=== PATIENT | male | born 1960 | race Caucasian/White ===

== ENCOUNTER 2024-09-26 07:59 | Emergency (ER) | payer MEDICARE, BC, SELFPAY ==
--- OUTSIDE RECORDS SUMMARY | 2024-09-26 08:02 | XMS_ITS | Encounter Summary ---
Author Organization [facility] Address [address] [place] [address] Care Team Providers Care Dry Paste Supervisor Name Role Phone Unavailable Primary Care Provider Unavailabl e Encounter Details Date Type Department Care Team (Late st Contact Info) Description 09/21/2024 Results Follow-Up RST CVD Kev Buchanan M.B.B.S. [address] [place] [id number] Echo Transesophageal (LEOBARDO) Social History Tobacco Use Types Packs/Day Years Used Date Smoking Tobacco: Never Smokeless Tobacco: Never Alcohol Use Standard Drinks/Week Comments Yes 1 (1 standard drink = 0.6 oz pur e alcohol) 1-2 drinks/week [facility] Utilities Answer Date Recorded In the past 12 months has [employer], gas, oil, or water [employer] threatened to shut off services in your home? No 09/06/2024 PHQ-2 Answer Date Recorded PHQ-2 Score 0 12/30/2022 Exercise Vital Sign Answer Date Recorde d On average, how many days pe r week do you engage in moderate to strenuous exercise (like a brisk walk)? 6 days 09/06/2024 On average, how many minutes do you engage in exercise at this level? 40 min 09/06/2024 Hunger Vital Sign Answer Date Recorded Within the past 12 months, y ou worried that your food would run out before you got the money to buy more. Never true 09/06/19 Within the past 12 months, t he food you bought just didn't last and you didn't have money to get more. Never true 09/06/2024 PRAPARE - Transportation Answer Date Re corded In the past 12 months, has l ack of transportation kept you from medical appointments or from getting medications? No 11/2024 In the past 12 months, has l ack of transportation kept you from meetings, work, or from getting things needed for daily living? No 09/06/2024 Nutrition Answer Date Recorded On average, how many serving s of fruits and vegetables do you eat per day (serving size is equal to 1 cup or approximately the size of a tennis ball)? 3-5 09/06/2024 Dental Answer Date Recorded Dental: Regular Dentist Yes 09/06/19 Employment Answer Date Recorded Employment status Employed and actively working without restrictions 09/06/2024 Housing Stability Answer Date Recorded What is your living situation today? I have a [facility] place to live 09/06/2024 Sex and Gender Information Value Date Recorded Sex Assigned at Male 12/30/2022 7:10 AM CDT Legal Sex Male 9:28 AM ENAMEL DIPPER Gender Identity Male 12/30/2022 7:11 AM CDT Sexual Orientation Straight 12/30/2022 7: 11 AM CDT documented as of this encounter Miscellaneous Notes * Result Encounter Note - Kev Buchanan M.B.B.S. - 09/21/2024 1:36 PM ENAMEL DIPPER Discussed normal findings on transesophageal echocardiogram. Sclerotic aortic valve with small strands consistent with age. Discussed no further testing required from a cardiac standpoint. Mr. Negrete advised to reach back if has continued symptoms of dizziness at which point neurology/ ENT referral can be considered. EL DIPPER documented in this encounter Plan of Treatment Not on file documented as of this encounter Visit Diagnoses Not on filedocumented in this encounter
--- OUTSIDE RECORDS SUMMARY | 2024-09-26 08:02 | XMS_ITS | Encounter Summary ---
Author Organization [facility] Address [address] [place] [address] Care Team Providers Care Senior Radiation Protection Technician Name Role Phone Unavailable Primary Care Provider Unavailabl e Reason for Referral * Cardiovascular-Diagnostic (Routine) - Closed Specialty Diagnoses / Procedures Referred By Contac t Referred To Contact Diagnoses Acquired Aortic Valve Disorder Procedures Echo Transesophageal (LEOBARDO) Kev Buchanan M.B.B.S. [address] [place] [address] Phone: tel: fax: [facility] Referral ID Status Reason Start Date Expiration Date Visits Re quested Visits Authorized [id number] Closed 09/12/2024 12/13/2025 1 1 NETWORK ARCHITECT Reason for Visit * Cardiovascular-Diagnostic (Routine) - Closed Specialty Diagnoses / Procedures Referred By Contac t Referred To Contact Diagnoses Acquired Aortic Valve Disorder Procedures Echo Transesophageal (LEOBARDO) Kev Buchanan M.B.B.S. [address] [place] [address] Phone: tel: fax: [facility] Referral ID Status Reason Start Date Expiration Date Visits Re quested Visits Authorized [id number] Closed 09/12/2024 12/13/2025 1 1 Encounter Details Date Type Department Care Team (Latest Contact Info) Description 09/21/2024 9:58 AM IT NETWORK ARCHITECT - 09/21/2024 11:59 PM IT NETWORK ARCHITECT Hospital Encounter Department of Cardiovascular Diseases in [place], [place] [address] [place] [address] Kev Buchanan M.B.B.S. [address] [place] [address] Acquired Aortic Valve Disorder Discharge Disposition: Home or Self Care Social History Tobacco Use Types Packs/Day Years Used Date Smoking Tobacco: Never Smokeless Tobacco: Never Alcohol Use Standard Drinks/Week Comments Yes 1 (1 standard drink = 0.6 oz pur e alcohol) 1-2 drinks/week [facility] Utilities Answer Date Recorded In the past 12 months has th e electric, gas, oil, or water company threatened to shut off services in your [...] money to buy more. Never true 09/06/19 25 Within the past 12 months, t he [...] your living situation today? I have a [employer] place to live 09/06/2024 Sex and Gender Information Value Date Recorded Sex Assigned at Male 12/30/2022 7:10 AM CDT Legal Sex Male 9:28 AM IT NETWORK ARCHITECT Gender Identity Male 12/30/2022 7:11 AM CDT Sexual Orientation Straight 12/30/2022 7: 11 AM CDT documented as of this encounter Last Filed Vital Signs Vital Sign Reading Time Taken Comments Blood Pressure 113/79 09/21/2024 11:42 AM IT NETWORK ARCHITECT Pulse 61 09/21/2024 11:39 AM IT NETWORK ARCHITECT Temperature - - Respiratory Rate 17 09/21/2024 11:39 AM IT NETWORK ARCHITECT Oxygen Saturation 96% 09/21/2024 11:39 AM IT NETWORK ARCHITECT Inhaled Oxygen Concentration - - Weight - - Height - - Body Mass Index - - documented in this encounter Medications at Time of Discharge aspirin [address] tablet Take 81 mg by mouth daily. 05/17/2009 atorvastatin (LIPITOR) 40 mg tablet Take 40 mg by mouth daily. 11/28/2017 DME CPAPIndications: Obstructive Sleep Apnea Adult DME Order 1 Device 08/08/2020 ezetimibe (Zetia) 10 mg tablet Take 1 tablet (10 mg total) by mouth daily. 30 tablet 11 09/11/2024 flaxseed oiL 1,000 mg capsule Take 1 capsule by mouth daily. 01/12/2020 glucosamine-afia droitin (GLUCOSAMINE-CHO NDROITIN) 500-400 mg per capsule Take 2 capsules by mouth daily. 09/09/2015 hydroCHLOROthiaz brenden (HYDRODIURIL) 12.5 mg tablet Take 6.25 mg by mouth daily. 11/22/2017 lactobacillus comb no.10 (Probiotic) 20 billion cell capsule Take 1 capsule by mouth daily. 01/30/2019 lisinopril (PRINIVIL,ZESTRI L) 5 mg tablet Take 5 mg by mouth daily. 11/22/2017 multivitamin tablet Take by mouth daily. 05/17/2009 omega 0-yxa-avr-fish oil (FISH OIL) 1,000 mg (120 mg-180 mg) capsule Take 1,000 mg by mouth daily. 05/17/2009 omeprazole (PriLOSEC) 20 mg capsule Take 20 mg by mouth every morning before breakfast. 11/22/2017 rosuvastatin (Crestor) 40 mg tablet Take 1 tablet by mouth at bedtime. 09/07/2024 saw palmetto fruit 450 mg capsule Take by mouth daily. 10/21/2012 triamcinolone (KENALOG) 0.1 % cream Apply 1 Application topically as needed. 12/23/2021 documented as of this encounter Plan of Treatment Not on file documented as of this encounter Procedures Procedure Name Priority Date/Time Associated Diagnosis Comments (LEOBARDO) 2D WITH COLOR, LIMITED DOPPLER AND CONTRAST Routine 09/21/2024 11:32 AM IT NETWORK ARCHITECT Acquired Aortic Valve Disorder documented in this encounter Results * (LEOBARDO) 2D WITH COLOR, LIMITED DOPPLER AND CONTRAST (09/21/2024 11:32 AM IT NETWORK ARCHITECT) Ejection Fraction 65 [facility] Mallampati As documented in the RN pre-procedure assessment [facility] ASA Class II [facility] Echo H and P 09/21/2024 11:01 [facility] Anatomical Region Laterality Modality Echocardiography 09/21/2024 10:0 5 AM IT NETWORK ARCHITECT Impressions 09/21/2024 1:09 PM IT NETWORK ARCHITECT PRE-SEDATION ASSESSMENT & CONSENT (performed immediately prior to the start of the procedure at 09/21/2024 11:01): The goals, risks and alternatives to moderate sedation and the transesophageal echo were explained to the patient, questions were answered and consent was given to proceed. The physician proceduralist independently interviewed the patient in addition to a pertinent review of the patient's history, medication list, allergies, and review of systems, and the findings as documented in the medical record and the journalism professor. The physician independently performed a pertinent examination including a heart, airway, and lung assessment prior to the start of the procedure. The patient history and physical were deemed satisfactory to proceed with the planned level of sedation. Mallampati Assessment: As documented in the RN pre-procedure assessment. Sedation Plan: Transesophageal echo - moderate sedation. ASA physical status score: Class II. The patient's identity and all needed equipment were confirmed and a final confirmatory pause was performed by the team immediately prior to start. PROCEDURAL ECHO FINDINGS: Transesophageal echocardiogram performed at the request of the primary manager field services. Transesophageal echocardiogram performed by the physician manager editorial(s), as listed in this report. Adult probe inserted without difficulty. LEFT VENTRICLE:Normal left ventricular chamber size. Estimated left ventricular ejection fraction 65%. No regional wall motion abnormalities. RIGHT VENTRICLE:Normal right ventricular chamber size. Normal right ventricular systolic function. ATRIA:Normal left atrial size. Normal left atrial appendage. Left atrial appendage emptying velocity 61.8 cm/sec. No left atrial appendage thrombus. Normal right atrial size. CARDIAC VALVES:Trileaflet aortic valve. Sclerotic aortic valve. Aortic valve strands. Aortic valve changes consistent with age. No aortic valve regurgitation. Normal mitral valve. Trivial mitral valve regurgitation. Normal pulmonary valve. Trivial pulmonary valve regurgitation. Normal tricuspid valve. Trivial tricuspid valve regurgitation. OTHER ECHO FINDINGS:Normal ascending aorta diameter. Normal aortic arch. Mild immobile (intimal thickening of 2-3 mm) atherosclerosis of the descending thoracic aorta. Normally connected pulmonary veins. Pulmonary artery bifurcation is normal. Normal superior vena cava. Lipomatous atrial septum. Agitated saline injection(s) performed during sedation. Prominent Eustachian valve directing bubbles to right atrium, causing suboptimal opacification of interatrial septum. No [id number] shunt at atrial level at rest or with Valsalva release with repeated agitated saline injections in today's study. No intracardiac mass or thrombus identified. No pericardial effusion. PROCEDURE NOTES:Procedure performed with appropriate level of sedation. A trained independent observer assisted with monitoring the patient's level of consciousness and physiologic status throughout the procedure, see nursing documentation. The patient tolerated the sedation and procedure well and was released awake, alert, and in good condition. Transesophageal echocardiogram completed without complications. Transgastric images acquired. See Sedation Narrator or other pertinent record in [facility] for additional procedure and sedation information. Physician signed for procedural medications and the patient was discharged when discharge criteria were met. For the complete report, see the Order-Level Documents. Narrative 09/21/2024 1:09 PM IT NETWORK ARCHITECT For the complete report, see the Order-Level Documents. Hemodynamics Heart Rate: 66 BPM Blood Pressure: 147 / 102 mmHg ECG: Normal sinus rhythm Final Impressions 1. Normal left ventricular chamber size , estimated left ventricular ejection fraction 65%. 2. Normal right ventricular chamber size with normal right ventricular systolic function. 3. Sclerotic aortic valve with small strands consistent with age. 4. No valvular vegetations. 5. No intracardiac mass or thrombus identified. 6. No pericardial effusion. Procedure Note Roland Wei M.D. - 09/21/2024 For the complete report, see the Order-Level Documents. Hemodynamics Heart Rate: 66 BPM Blood Pressure: 147 / 102 mmHg ECG: Normal sinus rhythm Final Impressions 1. Normal left ventricular chamber size , estimated left ventricularejection fraction 65%. 2. Normal right ventricular chamber size with normal right ventricularsystolic function. 3. Sclerotic aortic valve with small strands consistent with age. 4. No valvular vegetations. 5. No intracardiac mass or thrombus identified. 6. No pericardial effusion. Findings PRE-SEDATION ASSESSMENT & CONSENT (performed immediately prior to thestart of the procedure at 09/21/2024 11:01): The goals, risks andalternatives to moderate sedation and the transesophageal echo wereexplained to the patient, questions were answered and consent was given toproceed. The physician proceduralist independently interviewed the patientin addition to a pertinent review of the patient's history, medicationlist, allergies, and review of systems, and the findings as documented inthe medical record and the journalism professor. The physician independentlyperformed a pertinent examination including a heart, airway, and lungassessment prior to the start of the procedure. The patient history andphysical were deemed satisfactory to proceed with the planned level ofsedation. Mallampati Assessment: As documented in the RN pre-procedureassessment. Sedation Plan: Transesophageal echo - moderate sedation. ASAphysical status score: Class II. The patient's identity and all neededequipment were confirmed and a final confirmatory pause was performed bythe team immediately prior to start. PROCEDURAL ECHO FINDINGS:Transesophageal echocardiogram performed at the request of the primaryservice program evaluation consultant. Transesophageal echocardiogram performed by therevere memorial hospitalsician manager editorial(s), as listed in this report. Adult probeinserted without difficulty. LEFT VENTRICLE:Normal left ventricular chamber size. Estimated leftventricular ejection fraction 65%. No regional wall motionabnormalities. RIGHT VENTRICLE:Normal right ventricular chamber size. Normal rightventricular systolic function. ATRIA:Normal left atrial size. Normal left atrial appendage. Left atrialappendage emptying velocity 61.8 cm/sec. No left atrial appendagethrombus. Normal right atrial size. CARDIAC VALVES:Trileaflet aortic valve. Sclerotic aortic valve. Aorticvalve strands. Aortic valve changes consistent with age. No aortic valveregurgitation. Normal mitral valve. Trivial mitral valve regurgitation.Normal pulmonary valve. Trivial pulmonary valve regurgitation. Normaltricuspid valve. Trivial tricuspid valve regurgitation. OTHER ECHO FINDINGS:Normal ascending aorta diameter. Normal aortic arch.Mild immobile (intimal thickening of 2-3 mm) atherosclerosis of thedescending thoracic aorta. Normally connected pulmonary veins. Pulmonaryartery bifurcation is normal. Normal superior vena cava. Lipomatous atrialseptum. Agitated saline injection(s) performed during sedation. ProminentEustachian valve directing bubbles to right atrium, causing suboptimalopacification of interatrial septum. No [id number] shunt at atriallevel at rest or with Valsalva release with repeated agitated salineinjections in today's study. No intracardiac mass or thrombus identified.No pericardial effusion. PROCEDURE NOTES:Procedure performed with appropriate level of sedation. Atrained independent observer assisted with monitoring the patient's levelof consciousness and physiologic status throughout the procedure, seenursing documentation. The patient tolerated the sedation and procedurewell and was released awake, alert, and in good condition. Transesophagealechocardiogram completed without complications. Transgastric imagesacquired. See Sedation Narrator or other pertinent record in Epic foradditional procedure and sedation information. Physician signed forprocedural medications and the patient was discharged when dischargecriteria were met. For the complete report, see the Order-Level Documents. Kev Rice CV ECHO PROCEDURES Final R esult documented in this encounter Visit Diagnoses Diagnosis Acquired Aortic Valve Disorder documented in this encounter Administered Medications Inactive Administered Medications - up to 3 most recent administrations Medication Order MAR Action Action Date Dose Rate Site fentaNYL injection (Sublimaze) As needed, Starting on Mago 09/21/24 at 1102, Intraprocedure (CV) Given 09/21/2024 11:02 AM IT NETWORK ARCHITECT 50 mcg lidocaine 5 % ointment 1 Application (Xylocaine) 1 Application, mouth/throat, Once in imaging, mild pain or score 1-3 of 10, See protocol, Starting on Mago 09/21/24 at 1010, For 1 dose, Intraprocedure - Diagnostic, Apply 1 inch on tongue blade[address] Place ointment side down in back of mouth, as far back as possible. Instruct patient to swallow any dissolved ointment. After 2-3 minutes, check gag reflex. May repeat once if gag reflex remains. Administer first dose within 10 minutes of expected physician arrival to procedure. MAX of 20 g of ointment/day Given 09/21/2024 10:44 AM IT NETWORK ARCHITECT 1 Application midazolam (PF) injection (Versed) As needed, Starting on Mago 09/21/24 at 1102, Intraprocedure (CV) Given 09/21/2024 11:02 AM IT NETWORK ARCHITECT 2 mg NaCl 0.9% bacteriostatic 0.9 % injection 30 mL 30 mL, intravenous, Once in imaging, for agitated saline (bubble) studies, Starting on Mago 09/21/24 at 1010, For 1 dose, Intraprocedure - Diagnostic, See Katie. Given 09/21/2024 11:25 AM IT NETWORK ARCHITECT 30 mL sodium chloride 0.9 % injection 10 mL 10 mL, intravenous, Once in imaging, line care, Starting on Mago 09/21/24 at 1010, For 1 dose, Prior to and following infusion and between multiple consecutive infusions: sodium chloride 0.9 % injection Given 09/21/2024 10:44 AM IT NETWORK ARCHITECT 10 mL documented in this encounter
--- OUTSIDE RECORDS SUMMARY | 2024-09-26 08:02 | XMS_ITS | Encounter Summary ---
Author Organization [facility] Address [address] [place] [address] Care Team Providers Care Carpenter Mine Name Role Phone Unavailable Primary Care Provider Unavailabl e Reason for Referral * Cardiovascular-Diagnostic (Routine) - Closed Specialty Diagnoses / Procedures Referred By Contac t Referred To Contact Diagnoses Dizziness Procedures Echo Stress Kev Buchanan M.B.B.S. [address] [place] [address] Phone: tel: fax: [facility] Referral ID Status Reason Start Date Expiration Date Visits Re quested Visits Authorized [id number] Closed 09/11/2024 12/12/2025 1 1 T Reason for Visit * Cardiovascular-Diagnostic (Routine) - Closed Specialty Diagnoses / Procedures Referred By Contac t Referred To Contact Diagnoses Dizziness Procedures Echo Stress Kev Buchanan M.B.B.S. [address] [place] [address] Phone: tel: fax: [facility] Referral ID Status Reason Start Date Expiration Date Visits Re quested Visits Authorized [id number] Closed 09/11/2024 12/12/2025 1 1 Encounter Details Date Type Department Care Team (Latest Contact Info) Description 09/12/2024 7:13 AM SCOUT - 09/12/2024 11:59 PM SCOUT Hospital Encounter Department of Cardiovascular Diseases in [place], [place] [address] [place] [address] Kev Buchanan M.B.BLuis ArmandoS. [address] [place] [address] Dizziness Discharge Disposition: Home or Self Care Social History Tobacco Use Types Packs/Day Years Used Date Smoking Tobacco: Never Smokeless Tobacco: Never Alcohol Use Standard Drinks/Week Comments Yes 1 (1 standard drink = 0.6 oz pur e alcohol) 1-2 drinks/week [facility] Utilities Answer Date Recorded In the past [...] Answer Date Recorded Dental: Regular Dentist Yes 02/05/20 25 Employment Answer Date Recorded Employment status Employed and actively working without restrictions 09/06/2024 Housing Stability Answer Date Recorded What is your living situation today? I have a [facility] place to live 09/06/2024 Sex and Gender Information Value Date Recorded Sex Assigned at Male 12/30/2022 7:10 AM CDT Legal Sex Male 9:28 AM SCOUT Gender Identity Male 12/30/2022 7:11 AM CDT Sexual Orientation Straight 12/30/2022 7: 11 AM CDT documented as of this encounter Medications at Time of Discharge [...] tablet Take by mouth daily. 05/17/2009 omega 1-thm-heu-fish oil (FISH OIL) 1,000 mg (120 mg-180 [...] Procedure Name Priority Date/Time Associated Diagnosis Comments ECHO STRESS 2D WITH COLOR, LIMITED DOPPLER AND CONTRAST Routine 09/12/2024 8:44 AM SCOUT Dizziness documented in this encounter Results * ECHO STRESS 2D WITH COLOR, LIMITED DOPPLER AND CONTRAST (09/12/2024 8:44 AM SCOUT) Ejection Fraction 62 MC CV EIMS LV End-Diastolic Volume 99 MC CV EIMS LV End-Systolic Volume 38 MC CV EIMS MV E Velocity 0.8 MC CV EIMS MV A Velocity 0.6 MC CV EIMS MV E/A 1.33 MC CV EIMS MV e' Velocity Medial 0.08 MC CV EIMS MV E/e' Medial 10 MC CV EIMS TR Vmax 2.37 MC CV EIMS RA Pressure 5 MC CV EIMS RV Systolic Pressure 27 MC CV EIMS WMSI At Rest 1 MC CV EIMS WMSI At Peak Stress 1 MC CV EIMS Anatomical Region Laterality Modality Echocardiography 09/12/2024 7:30 AM SCOUT Impressions 09/12/2024 9:57 AM SCOUT consistent with normal left ventricular filling pressure at rest and with exercise. 7. Estimated right ventricular systolic pressure with stress was 52 mmHg, assuming RA pressure of 5 mmHg (upper limit of normal 54 mmHg). 8. Findings consistent with normal lung aeration at rest and with exercise. 9. The stress ECG was negative for ischemia. 10. REST IMPRESSIONS: 11. Possible aortic valve mass. An immobile echodensity is seen within the non-coronary sinus of Valsalva, closely associated with the non-coronary cusp (see clip 1, 48-50) and measures approximately 0.4 x 0.4 mm. 12. There was a similar echodensity seen on the recent TTE which appeared more consistent with focal calcification/sclerosis, though it appears larger on today's study. 13. Note that today's study was very limited in scope, with limited views of the aortic valve. As such, there is a possibility that the abnormality and changes are due to differences in imaging factors rather than true change. 14. Nonetheless, a transesophageal echocardiogram could be obtained out of an abundance of caution to evaluate for a possible aortic valve mass. Findings STRESS TEST:The patient exercised for 7:11 min:sec on the Elder protocol. The patient achieved a workload of 8.2 METS and 84% FAC. A peak heart rate of 151 BPM was achieved (98% age-predicted maximal HR). Blood pressure at rest 130 mmHg/76 mmHg. Blood pressure with exercise 192 mmHg/70 mmHg. Normal blood pressure response to exercise. The test was terminated due to fatigue. The baseline ECG demonstrated sinus rhythm. With stress, the ECG demonstrated <1mm beat to beat variability S-T depression. S-T depression in infero-lateral lead(s). The stress ECG was negative for ischemia. Please see Nursing Notes for additional information. REST IMAGES: LEFT VENTRICLE:Normal left ventricular chamber size. Calculated 2-D biplane volumetric left ventricular ejection fraction of 62% with the use of ultrasound enhancing agent. No regional wall motion abnormalities. Normal left ventricular diastolic function. RIGHT VENTRICLE:Normal right ventricular chamber size. Normal right ventricular systolic function. Estimated right ventricular systolic pressure 27 mmHg (right atrial pressure of 5 mmHg). CARDIAC VALVES:Sclerotic aortic valve. Possible aortic valve mass. Mildly thickened mitral valve. Trivial mitral valve regurgitation. Normal tricuspid valve. Trivial tricuspid valve regurgitation. OTHER ECHO FINDINGS:Normal inferior vena cava size with normal inspiratory collapse (>50%). No intracardiac mass or thrombus identified. No pericardial effusion. LUNG FINDINGS:Lung ultrasound performed. Normal aeration in both lungs. Attempts were made to optimize the echocardiographic images and two or more left ventricular segments were not visualized adequately to evaluate cardiac structure. The patient's current allergies and medications have been screened. Intravenous Definity ultrasound enhancement agent(s) administered to enhance endocardial border definition. Imaging enhancement agent administered per Echocardiography Contrast Administration Protocol Reference Document [id number] Rev 11/13/2021. Patient met an inclusion criterion and did not have contraindications in screening sections. For the complete report, see the Order-Level Documents. Narrative 09/12/2024 9:57 AM SCOUT For the complete report, see the Order-Level Documents. Hemodynamics Heart Rate: 64 BPM Blood Pressure: 130 / 76 mmHg ECG: Sinus rhythm, Normal QRS Final Impressions 1. STRESS IMPRESSIONS: 2. Exercise echocardiogram negative for myocardial ischemia. 3. The patient's exercise capacity was below average, achieved a workload of 8.2 METS and 84% FAC . A peak heart rate of 151 BPM was achieved (98% age-predicted maximal HR). 4. The test was terminated due to fatigue. 5. Ejection fraction response from 62% at rest to 75% at peak stress, left ventricular end-systolic volume decreased with stress. 6. Procedure Note Mariam Arteaga M.D. - 09/12/2024 For the complete report, see the Order-Level Documents. Hemodynamics Heart Rate: 64 BPM Blood Pressure: 130 / 76 mmHg ECG: Sinus rhythm, Normal QRS Final Impressions 1. STRESS IMPRESSIONS: 2. Exercise echocardiogram negative for myocardial ischemia. 3. The patient's exercise capacity was below average, achieved a workloadof 8.2 METS and 84% FAC . A peak heart rate of 151 BPM was achieved (98%age-predicted maximal HR). 4. The test was terminated due to fatigue. 5. Ejection fraction response from 62% at rest to 75% at peak stress, leftventricular end-systolic volume decreased with stress. 6. Findings consistent with normal left ventricular filling pressure atrest and with exercise. 7. Estimated right ventricular systolic pressure with stress was 52 mmHg,assuming RA pressure of 5 mmHg (upper limit of normal 54 mmHg). 8. Findings consistent with normal lung aeration at rest and withexercise. 9. The stress ECG was negative for ischemia. 10. REST IMPRESSIONS: 11. Possible aortic valve mass. An immobile echodensity is seen within thenon-coronary sinus of Valsalva, closely associated with the non-coronarycusp (see clip 1, 48-50) and measures approximately 0.4 x 0.4 mm. 12. There was a similar echodensity seen on the recent TTE which appearedmore consistent with focal calcification/sclerosis, though it appearslarger on today's study. 13. Note that today's study was very limited in scope, with limited viewsof the aortic valve. As such, there is a possibility that the abnormalityand changes are due to differences in imaging factors rather than truechange. 14. Nonetheless, a transesophageal echocardiogram could be obtained out ofan abundance of caution to evaluate for a possible aortic valve mass. Findings STRESS TEST:The patient exercised for 7:11 min:sec on the Elder protocol.The patient achieved a workload of 8.2 METS and 84% FAC. A peak heart rateof 151 BPM was achieved (98% age-predicted maximal HR). Blood pressure atrest 130 mmHg/76 mmHg. Blood pressure with exercise 192 mmHg/70 mmHg.Normal blood pressure response to exercise. The test was terminated due tofatigue. The baseline ECG demonstrated sinus rhythm. With stress, the ECGdemonstrated <1mm beat to beat variability S-T depression. S-T depressionin infero-lateral lead(s). The stress ECG was negative for ischemia.Please see Nursing Notes for additional information. REST IMAGES: LEFT VENTRICLE:Normal left ventricular chamber size. Calculated 2-Dbiplane volumetric left ventricular ejection fraction of 62% with the useof ultrasound enhancing agent. No regional wall motion abnormalities.Normal left ventricular diastolic function. RIGHT VENTRICLE:Normal right ventricular chamber size. Normal rightventricular systolic function. Estimated right ventricular systolicpressure 27 mmHg (right atrial pressure of 5 mmHg). CARDIAC VALVES:Sclerotic aortic valve. Possible aortic valve mass. Mildlythickened mitral valve. Trivial mitral valve regurgitation. Normaltricuspid valve. Trivial tricuspid valve regurgitation. OTHER ECHO FINDINGS:Normal inferior vena cava size with normal inspiratorycollapse (>50%). No intracardiac mass or thrombus identified. Nopericardial effusion. LUNG FINDINGS:Lung ultrasound performed. Normal aeration in both lungs.Attempts were made to optimize the echocardiographic images and two ormore left ventricular segments were not visualized adequately to evaluatecardiac structure. The patient's current allergies and medications havebeen screened. Intravenous Definity ultrasound enhancement agent(s)administered to enhance endocardial border definition. Imaging enhancementagent administered per Echocardiography Contrast Administration ProtocolReference Document [id number] Rev 11/13/2021. Patient met an inclusioncriterion and did not have contraindications in screening sections. For the complete report, see the Order-Level Documents. us Kev Rice CV ECHO PROCEDURES Final R esult documented in this encounter Visit Diagnoses Diagnosis Dizziness documented in this encounter Administered Medications Inactive Administered Medications - up to 3 most recent administrations Medication Order MAR Action Action Date Dose Rate Site perflutren lipid microspheres injection (Definity) intravenous, Once in imaging, contrast, Starting on Wed09/12/24 at 0843, For 1 dose, Intraprocedure - Diagnostic, See protocol. Given 09/12/2024 8:43 AM SCOUT 1 mL sodium chloride 0.9 % injection 10 mL 10 mL, intravenous, As needed, line care, Starting on Wed09/12/24 at 0843, Intraprocedure - Diagnostic, Prior to and following infusion and between multiple consecutive infusions: sodium chloride 0.9 % injection Given 09/12/2024 8:43 AM SCOUT 10 mL documented in this encounter
--- OUTSIDE RECORDS SUMMARY | 2024-09-26 08:02 | XMS_ITS | Encounter Summary ---
Author Organization [facility] Address [address] [place] [address] Care Team Providers Care Media Relations Coordinator Name Role Phone Unavailable Primary Care Provider Unavailabl e Reason for Referral * Cardiovascular-Diagnostic (Routine) - Closed Specialty Diagnoses / Procedures Referred By Contac t Referred To Contact Diagnoses Acquired Aortic Valve Disorder Procedures Echo Transesophageal (LEOBARDO) Kev Buchanan M.B.B.S. [address] [place] [address] Phone: tel: fax: [facility] Referral ID Status Reason Start Date Expiration Date Visits Re quested Visits Authorized [id number] Closed 09/12/2024 12/13/2025 1 1 MAL SPRAY OPERATOR Encounter Details Date Type Department Care Team (Latest Contact Info) Description 09/12/2024 Results Follow-Up RST CVD Kev Buchanan M.B.B.S. [address] [place] [phone] Echo Stress Social History Tobacco Use Types Packs/Day Years Used Date Smoking Tobacco: Never Smokeless Tobacco: Never Alcohol Use Standard Drinks/Week Comments Yes 1 (1 standard drink = 0.6 oz pur e alcohol) 1-2 drinks/week [facility] Utilities Answer Date Recorded In the past [...] your living situation today? I have a [facility] place to live 09/06/2024 Sex and Gender Information Value Date Recorded Sex Assigned at Male 12/30/2022 7:10 AM CDT Legal Sex Male 9:28 AM THERMAL SPRAY OPERATOR Gender Identity Male 12/30/2022 7:11 AM CDT Sexual Orientation Straight 12/30/2022 7: 11 AM CDT documented as of this encounter Miscellaneous Notes * Result Encounter Note - Kev Buchanan M.B.BLuis ArmandoS. - 09/12/2024 1:02 PM THERMAL SPRAY OPERATOR Discuss stress echocardiogram findings with And Mrs. Petty. Discussed that stress echocardiogram was negative for myocardial ischemia, he had an adequate blood pressure response with stress. Considering these findings discussed unlikely the dizziness being cardiac in origin. Discussed findingsof aortic valve mass noted in the non coronary cusps in the sinus of Valsalva, and need for transesophageal echocardiogram to better delineate the same. And Mrs. Petty were in agreement with getting a transesophageal echo cardiogram and the same was ordered. Discussed his new diagnosis of type2 diabetes mellitus, and advised reaching out to his primary care physician for initiation of treatment. Discussed potential initiation of SGLT2 inhibitors if his insurance permits versus initiation of metformin. MAL SPRAY OPERATOR documented in this encounter Plan of Treatment Not on file documented as of this encounter Results * (LEOBARDO) 2D WITH COLOR, LIMITED DOPPLER AND CONTRAST (09/21/2024 11:32 AM THERMAL SPRAY OPERATOR) [facility] Signature Ejection Fraction 65 [facility] Mallampati As documented in the RN pre-procedure assessment [facility] ASA Class II [facility] Echo H and P 09/21/2024 11:01 [facility] Anatomical Region Laterality Modality Echocardiography 09/21/2024 10:0 5 AM THERMAL SPRAY OPERATOR Impressions 09/21/2024 1:09 PM THERMAL SPRAY OPERATOR PRE-SEDATION ASSESSMENT & CONSENT (performed immediately prior [...] documented in the medical record and the assessment specialist. The physician independently performed a pertinent examination [...] performed at the request of the primary director patient financial services. Transesophageal echocardiogram performed by the physician prepress specialist(s), as listed in this report. Adult probe [...] causing suboptimal opacification of interatrial septum. No [id number] shunt at atrial level at rest or [...] Sedation Narrator or other pertinent record in [facility] for additional procedure and sedation information. Physician signed for procedural medications and the patient was discharged when discharge criteria were met. For the complete report, see the Order-Level Documents. Narrative 09/21/2024 1:09 PM THERMAL SPRAY OPERATOR For the complete report, see the Order-Level [...] as documented inthe medical record and the assessment specialist. The physician independentlyperformed a pertinent examination including [...] performed at the request of the primaryservice risk and insurance consultant. [facility]esophageal echocardi[facility] prepress specialist(s), as listed in this report. Adult probeinserted [...] atrium, causing suboptimalopacification of interatrial septum. No [id number] shunt at atriallevel at rest or with [...] Sedation Narrator or other pertinent record in [facility] foradditional procedure and sedation information. Physician signed forprocedural medications and the patient was discharged when dischargecriteria were met. For the complete report, see the Order-Level Documents. us Kev Rice CV ECHO PROCEDURES Final R esult documented in this encounter Visit Diagnoses Diagnosis Acquired Aortic Valve Disorder- Primary Acquired Aortic Valve Disorder documented in this encounter
--- OUTSIDE RECORDS SUMMARY | 2024-09-26 08:02 | XMS_ITS | Encounter Summary ---
Author Organization [facility] Address [address] [place] [address] Care Team Providers Care Lead Project Engineer Name Role Phone Unavailable Primary Care Provider Unavailabl e Reason for Referral * Outpatient (Routine) - Authorized Specialty Diagnoses / Procedures Referred By Contac t Referred To Contact Cardiovascular Disease Kev Buchanan M.B.B.S. 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 Reason for Visit * Appointment Request (Routine) - Closed Specialty Diagnoses / Procedures Referred By Hyacinth t Referred To Contact Cardiovascular Disease Diagnoses Lightheadedness Fatigue Referral ID Status Reason Start Date Expiration Date Visits Re quested Visits Authorized [id number] Closed 08/21/2024 11/21/2025 1 1 Encounter Details Date Type Department Care Team (Latest Contact Info) Description 09/11/2024 1:15 PM 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 [address] [place] [address] Dizziness (Primary Dx); Diabetes Mellitus Type 2 (HCC); Hypertension Essential Primary; Hyperlipidemia On Treatment; Beat Premature Ventricular; Atrial Premature Depolarization; Family History Cardiovascular Disease Social History Tobacco Use Types Packs/Day Years Used Date Smoking Tobacco: Never Smokeless Tobacco: Never Tobacco Cessation:Counseling Given: Not Answered Alcohol Use Standard Drinks/Week Comments Yes 1 (1 standard drink = 0.6 oz pur e alcohol) 1-2 drinks/week [facility] Utilities Answer Date Recorded In the past 12 months has th e [email or web address], gas, oil, or water [email or web address] threatened to shut off services in your [...] Date Recorded Dental: Regular Dentist Yes 09/06/19 25 Employment Answer Date Recorded Employment status Employed and actively working without restrictions 09/06/2024 Housing Stability Answer Date Recorded What is your living situation today? 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 Jones SUBJECTIVE REASON FOR VISIT: Symptoms of dizziness at exertion. HISTORY OF PRESENTING ILLNESS: This is a 64-year-old very pleasant male with past medical history listed below presents to the cardiology clinic with complaints of symptoms of dizziness at exertion. He is accompanied today by his . Per the history provided by Mr. Yap he did develop symptoms of dizziness with exertion starting around July 21, 2024. Per the history provided by him he had bursitis and was given antibiotics for a duration of 5 days with minimal improvement in symptoms. Considering this he was given additional 5 days of antibiotics and he developed symptoms of dizziness with exertion following the 1st dose of additional 5 days of antibiotics. Denies symptoms of worsening tinnitus/ear pain. Of note he has a history of Meniere's disease with tinnitus at baseline and vertigo, however feels the dizziness at exertion noted above is different from the dizziness usually experience with Meniere's disease.Denies history of presyncopal or syncopal events associated with his dizziness. Denies complaints of chest pain at rest or with exertion, happening with his above- noted dizziness, denies complaints of shortness of breath at rest or with exertion, denies complaints of palpitation or lower extremity swelling. Per the history provided by Mr. Yap he denies monitoring his blood pressure at home. The following portions of the patient's history were reviewed and updated as appropriate: allergies, current medications, family history, medical history, social history, surgical history and problemlist. CARDIOVASCULAR RISK FACTORS: Diabetes: None diagnosed. Last documented HbA1c of 7.4 High Blood Pressure: Has a history of hypertension. Blood pressure during the encounter today was 135/86. Does not monitor his blood pressure at home. Hyperlipidemia: Yes. On atorvastatin 40 mg tablet once daily and omega 8-qul-tob-fish oil (FISH OIL) 1,000 mg (120 mg-180 mg) capsule daily. Last lipid panel done 08/30/2024 at a [facility] facility reported a total cholesterol of 142, LDL cholesterol of 62, HDL cholesterol of 40 and triglycerides of 219. Last lipid panel done 09/07/2024 at a outside facility reported a total cholesterol of 142, LDL cholesterol of 70, HDL cholesterol of 45 and triglycerides of 199. BERT: Has a diagnosis history of obstructive sleep apnea. Has been very compliant with his CPAP machine, which per the history provided by Mr. Yap was titrated recently. Tobacco Use: Denies a history of smoking. Obesity: Class 1 obesity with a documented BMI 34.63. 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 Food pattern: Not addressed during this encounter. Stress: Mr. Yap does note increased stress related to work of recently. Sleep: Not addressed during this encounter. CARDIAC MEDICATIONS: Lisinopril, hydrochlorothiazide, atorvastatin, fish oil and aspirin. PAST MEDICAL HISTORY: Last documented HbA1c 09/07/2024 of 7.4. Hypertension on lisinopril 5 mg tablet once daily and hydrochlorothiazide 6.25 mg tablet once daily. Hyperlipidemia on atorvastatin 40 mg tablet once daily and omega 5-chh-kxt-fish oil (FISH OIL) 1,000 mg (120 mg-180 mg) capsule daily. Last lipid panel done 08/30/2024 done at a [facility] facility reported a total cholesterol of 142, LDL cholesterol of 62, HDL cholesterol of 40 and triglycerides of 219.Last lipid panel done 09/07/2024 at a outside facility reported a total cholesterol of 142, LDL cholesterol of 70, HDL cholesterol of 45 and triglycerides of 199. On aspirin 81 mg tablet once daily for primary prevention. BERT with the use of CPAP. Flaxseed oil 1000 mg capsule daily. Lactobacillus comb no.10 (Probiotic) 20 billion cell capsule daily. Daily multivitamin supplementation. Saw palmetto fruit 450 mg capsule daily. Glucosamine-chondroitin (GLUCOSAMINE-CHONDROITIN) 500-400 mg per capsule 2 capsules daily. Triamcinolone (KENALOG) 0.1 % cream for local application. Daily PPI use on omeprazole 20 mg tablet daily. FAMILY HISTORY: Has a family history of bicuspid aortic valve with aortopathy in his brother. History of coronary artery disease in his family. SOCIAL HISTORY: Denies history of smoking. Occasional consumption of alcohol during social occasions. TRAVEL HISTORY: Denies any recent travel history. REVIEW OF SYSTEMS: All other systems were reviewed and are negative other than what was noted in the HPI. OBJECTIVE GENERAL PHYSICAL EXAMINATION: There were no vitals taken for this visit. No pallor, icterus, cyanosis, clubbing, lymphadenopathy, edema. SYSTEMIC EXAMINATION: General: Oriented to time place and person. Eyes and Ears, Nose and Throat: Mucous membranes moist. No other noted abnormalities on examination. Cardiovascular system: Inspection: Normal chest wall, no visible pulsations noted; Palpation: Apical impulse noted in the 5th intercostal space mid clavicular line, no parasternal heave, no palpable thrills or heat sounds; Percussion: Percussion of the heat borders deferred; Auscultation: Normal S1and A2 and P2, negative for S3 and S4, no murmurs noted on auscultation. No induced mid systolic murmur heard with Valsalva over the left lower sternal border/aortic area. Respiratory system: Inspection: Good inspiratory effort, Normal chest wall; Palpation: Not done; Percussion: Not done; Auscultation: Normal vesicular breath sounds, no rhonchi. Abdomen: Inspection: No obvious deformity on inspection, non distended; Palpation: Soft, nontender;no masses or organomegaly appreciated; Percussion: Not done; Auscultation: Not done. Extremities: No peripheral edema, cyanosis, or clubbing. Peripheral pulses intact. Neurological examination: Cranial nerves intact. No focal neurological deficit. LABS: BMP, lipid panel and HbA1c done in an outside facility on 09/07/2024 reviewed. BMP done reported a creatinine of 1.43. Last lipid panel done 09/07/2024 at a outside facility reported a total cholesterol of 142, LDL cholesterol of 70, HDL cholesterol of 45 and triglycerides of 199. HbA1c of 7.4 which is in the diabetic range, compared with his last documented HbA1c of 6.1 done 12/30/2022. CBC, CMP, TSH, magnesium, NT proBNP and lipid panel done 08/21/2024 reviewed during the encounter. CBC done reported hemoglobin of 15.6 and leukocyte count of 9.4. CMP done reported a creatinine of 1.44. Serum creatinine was 1.39 on BNP done 12/30/2022. TSH of 2.5. Magnesium of 1.8. NT proBNP of less than 36. Last lipid panel done 08/30/2024 done at a [facility] facility reported a total cholesterol of 142, LDL cholesterol of 62, HDL cholesterol of 40 and triglycerides of 219. Lipoprotein a of 160 on labs done 12/30/2022. ADDITIONAL STUDIES: Holter [08/30/2024]: The basic rhythm was sinus with sinus arrhythmia. The total analyzed time was 23h 47m. The heart rate varied from 54 to 109 bpm. The average HR was 75 bpm. Premature ventricular complexes were noted fused. There were 3 PVCs recorded with a PVC burden of less than 1%. Premature supraventricular complexes were noted singly. There were 34 PACs recorded with a PAC burden of less than 1%. The patient reported palpitations with no events noted with which to correlate. Echocardiogram[ 2024]: Normal left ventricular chamber size, no regional wall motion abnormalities, calculated 2-D biplanevolumetric ejection fraction of 71%. Sigmoid ventricular septum with basal septal prominence: 14 mm Left ventricular outflow tract maximal instantaneous Doppler gradient with Valsalva 16 mm Hg. Normal left ventricular filling pressure at rest. Normal right ventricular chamber size, normal systolic function, estimated right ventricular systolic pressure 30 mmHg (right atrial pressure of 5 mmHg). Normal inferior vena cava size with normal inspiratory collapse (>50%). Sclerotic aortic valve. No pericardial effusion. EKG [2024]: Normal sinus rhythm. Normal ECG. ASSESSMENT / PLAN # Dizziness with exertion # Type 2 diabetes- new diagnosis with an HbA1c of 7.4 # Hypertension # Hyperlipidemia, elevated Lipoprotein (a) levels # Premature ventricular complexes and premature atrial complexes # Family history of bicuspid aortic valve with aortopathies Discussed with Mr. Yap considering his prior CT coronary calcium score findings done in 2018 with a calcium score of 555 predominantly in the LAD territory, he would benefit from a stress echocardiogram to rule out any worsening of his coronary artery disease which could present as dizziness with peak exertion, though unlikely considering the history provided by him. Stress echocardiogram will help assess his sigmoid septum and any inducible gradient with stress, again unlikely based on the findings noted on his rest echocardiogram. Finally stress echocardiogram will help document blood pressure response with peak exercise, and asa possible explanation for his dizziness at exertion. 24 hour Holter monitor done prior to the visit negative for any rhythms that could potentially explain his dizziness at exertion. Discussed with Mr. Yap if his stress echocardiogram is unremarkable, the cause of his dizziness at exertion is unlikely cardiac and he would benefit from further evaluation from ENT and neurological standpoint. His most recent HbA1c done 09/07/2024 in an outside facility was 7.4, which is in the diabetic range as compared with his prior HbA1c done 12/30/2022 of 6.1. Will discuss with Mr. aYp to reach outto his primary care physician regarding initiation of oral antihyperglycemic agents for the management of his newly diagnosed type 2 diabetes mellitus. Discussed importance of regularly monitoring his blood pressure at home. Target blood pressure of less than 130/80. Considering his lipid done 09/07/2024 reporting an LDL cholesterol of 70 mg/dL and his prior coronary CT calcium score findings he benefit from a more aggressive management of his LDL cholesterol levels with a target LDL cholesterol of around 55 mg/dL considering this being for secondary prevention. Discussed addition of ezetimibe 10 mg tablet once daily for the same, and Mr. Yap was in agreement with the same. Prescription for the same sent to his pharmacy. was recommended to repeat his lipid panel in about 6 weeks post initiation of ezetimibe to document his LDL levels. No indication to treat his premature ventricular complexes premature atrial complexes considering him being asymptomatic. Tricuspid aortic valve and normal-sized proximal and mid ascending aorta noted on echocardiogram done 2024. Follow-up visit in 3 months for review of symptoms. These recommendations were reviewed with Dr. Jones and discussed with the patient. All questions were answered. Fahad PlattS General Taping Supervisor [facility] Pager:[phone] 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 * Tahir Jones M.D. - 09/11/2024 1:15 PM CST SUBJECTIVE CHIEF COMPLAINT/REASON FOR VISIT Referred by No ref. provider found for evaluation. HISTORY OF PRESENT ILLNESS Cosme Yap is a 64 y.o. male who is being seen today for exertional spells of some lightheadedness in the setting of hypercholesterolemia, hypertension,known coronary artery calcification, and elevation of lipoprotein a . Holter monitor done last month showed no significant dysrhythmia even at time of palpitations.on recent echo here, he has normal LV size with normal EF but a sigmoid ventricular septum with LV outflow tract 16 mm gradient with Valsalva. Normal filling pressures at rest. Current Outpatient Medications Medication Instructions aspirin 81 mg, Daily atorvastatin (LIPITOR) 40 mg, oral, Daily DME CPAP DME Order ezetimibe (ZETIA) 10 mg, oral, Daily flaxseed oiL 1,000 mg capsule 1 capsule, oral, Daily glucosamine-chondroitin (GLUCOSAMINE-CHONDROITIN) 500-400 mg per capsule 2 capsules, Daily hydroCHLOROthiazide 6.25 mg, Daily lactobacillus comb no.10 (Probiotic) 20 billion cell capsule 1 capsule, Daily lisinopriL 5 mg, oral, Daily multivitamin tablet Daily omega 2-kle-ipa-fish oil (FISH OIL) 1,000 mg (120 mg-180 mg) capsule 1,000 mg, Daily omeprazole (PRILOSEC) 20 mg, Daily before morning meal rosuvastatin (Crestor) 40 mg tablet 1 tablet, Daily at bedtime saw palmetto fruit 450 mg capsule Daily triamcinolone (KENALOG) 0.1 % cream 1 Application, As needed I have interviewed and examined the patient, reviewed the chart in [facility], discussed with Dr. Buchanan ,and agree with findings, exam, impression, and plan in their note of today's date. The following portions of the patient's history were reviewed and updated as appropriate: allergies, current medications, family history, medical history, social history, surgical history, psychiatric history, substance abuse history, problem list, labs, diagnostics tests. I also reviewed pertinentclinical notes in the electronic health record. REVIEW OF SYSTEMS A comprehensive review of systems was completed; pertinent abnormalities are included in the History of Present Illness. OBJECTIVE Height 169.3 cm weight 92 kg BMI 35 blood pressure 135/86 heart rate 64 and regular PHYSICAL EXAMINATION General: Very pleasant Psychiatric: Oriented to person, place, and time. Eyes: No xanthelasmas or corneal arcus. Nonicteric DIAGNOSTICS Lipids: Lab Results Component Value Date/Time CHOL 142 2024 10:18 AM CHOL 168 08/03/2023 04:15 PM TRIG 219 (H) 2024 10:18 AM TRIG 222 (H) 08/03/2023 04:15 PM HDL 44 2024 10:18 AM HDL 45 08/03/2023 04:15 PM LDL 79 08/03/2023 04:15 PM LDLCALC 62 2024 10:18 AM ECG: sinus rhythm ASSESSMENT / PLAN #1 Dizziness #2 hypercholesterolemia on therapy not at goal #3 elevated lipoprotein a #4 hypertension on therapy not at goal Plan: Agree with plans to have him undergo exercise stress test to see we can precipitate his symptoms. Will also send him a letter to give first-degree relatives regarding lipoprotein a so they can also be checked and will notify him Through the portal when and if drug is approved by the FDA for elevated lipoprotein a. Will also add ezetimibe to his regimen to get his LDL to goal of less than 55 mg/dL. Will follow up after above. Discussed and answered his questions. 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 documented in this encounter Plan of Treatment Scheduled Orders Name Type Priority Associated Diagnoses Orde r Schedule Lipid Panel Lab Routine Dizziness Expected: 10/27/2024, Expires: 12/09/2025 Scheduled Referrals Name Type Priority Associated Diagnoses Order Schedule Cardiovascular Disease office visit (clinic) [facility]; General Outpatient Referral Routine Expected: 12/09/2024, Expires: 12/09/2025 documented as of this encounter Results * ECHO STRESS 2D WITH COLOR, LIMITED DOPPLER AND CONTRAST (09/12/2024 8:44 AM HIGH 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) Ejection Fraction 62 MC CV EIMS LV [...] Region Laterality Modality Echocardiography 09/12/2024 7:30 AM HIGH 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 Impressions 09/12/2024 9:57 AM HIGH 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 consistent with normal left ventricular filling pressure [...] per Echocardiography Contrast Administration Protocol Reference Document [id number] Rev 11/13/2021. Patient met an inclusion criterion and did not have contraindications in screening sections. For the complete report, see the Order-Level Documents. Narrative 09/12/2024 9:57 AM H[employer] 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 For the complete report, see the Order-Level [...] administered per Echocardiography Contrast Administration ProtocolReference Document [id number] Rev 11/13/2021. Patient met an inclusioncriterion and did not have contraindications in screening sections. For the complete report, see the Order-Level Documents. us Kev Rice CV ECHO PROCEDURES Final R esult documented in this encounter Visit Diagnoses Diagnosis Dizziness- Primary Diabetes Mellitus Type 2 (HCC) Hypertension Essential Primary Hyperlipidemia On Treatment Beat Premature Ventricular Atrial Premature Depolarization Family History Cardiovascular Disease Dizziness documented in this encounter
[2024-09-26 08:03] VITALS: BP 145/82; PULSE 61; RESP 16; TEMP 36.1; O2SAT 96; BMI 33.5
--- OUTSIDE RECORDS SUMMARY | 2024-09-26 08:03 | XMS_ITS | Encounter Summary ---
Author Organization [facility] Address [address] [place] [address] Care Team Providers Care Orchestra Conductor Name Role Phone Unavailable Primary Care Provider Unavailabl e Reason for Referral * Cardiovascular-Diagnostic (Routine) - Closed Specialty Diagnoses / Procedures Referred By Contac t Referred To Contact Diagnoses Dizziness Palpitations Shortness Of Breath Procedures Echo Transthoracic (TTE) Cal Ren MPAS, P.A.-C., M.S. [address] [place] [address] Phone: tel: fax: [facility] Referral ID Status Reason Start Date Expiration Date Visits Re quested Visits Authorized [id number] Closed 08/22/2024 11/22/2025 1 1 RIALS TECHNICIAN * Outpatient (Routine) - Authorized Specialty Diagnoses / Procedures Referred By Contac t Referred To Contact Diagnoses Dizziness Palpitations Shortness Of Breath Procedures ECG Heart rhythm monitor (Holter) Cal Ren MPAS, P.A.-C., M.S. [address] [place] [address] Phone: tel: fax: [facility] Referral ID Status Reason Start Date Expiration Date V isits Requested Visits Authorized [id number] Authorized 08/22/2024 11/22/2025 1 1 RIALS TECHNICIAN * Outpatient (Routine) - Closed Specialty Diagnoses / Procedures Referred By Contac t Referred To Contact Diagnoses Dizziness Palpitations Shortness Of Breath Procedures DX Chest AP or PA and Lateral 2 Views Cal Ren MPAS, P.A.-C., M.S. [address] [place] [phone] Phone: tel: fax: [facility] Referral ID Status Reason Start Date Expiration Date Visits Re quested Visits Authorized [id number] Closed 08/22/2024 11/22/2025 1 1 RIALS TECHNICIAN * Outpatient (Routine) - Closed Specialty Diagnoses / Procedures Referred By Contac t Referred To Contact Diagnoses Dizziness Palpitations Shortness Of Breath Procedures ECG 12 Lead Cal Ren MPAS, P.A.-C., M.S. [address] [place] [phone] Phone: tel: fax: [facility] Referral ID Status Reason Start Date Expiration Date Visits Re quested Visits Authorized [id number] Closed 08/22/2024 11/22/2025 1 1 RIALS TECHNICIAN Reason for Visit * Reason Onset Date Comments Referral Triage 08/21/2024 CVD Encounter Details Date Type Department Care Team (Latest Contact Info) Description 08/21/2024 Referral Triage Department of Cardiovascular Medicine in [place], [place] [address] [place] [phone] Managed Care AnalystAdams M.D. Referral Triage (CVD) Social History Tobacco Use Types Packs/Day Years Used Date Smoking Tobacco: Never Smokeless Tobacco: Never Alcohol Use Standard Drinks/Week Comments Yes 0 (1 standard drink = 0.6 oz pur e alcohol) 1-2 drinks/week PHQ-2 Answer Date Recorded PHQ-2 Score 0 12/30/2022 Nutrition Answer Date Recorded Nutrition: EVOO Fat Source 13 02/26 Nutrition: Servings of Fruits/Vegetables per Day Not on file 02/27/2020 Dental Answer Date Recorded Dental: Regular Dentist Unknown 10/04/19 21 Sex and Gender Information Value Date Recorded Sex Assigned at Male 12/30/2022 7:10 AM CDT Legal Sex Male 9:28 AM MATERIALS TECHNICIAN Gender Identity Male 12/30/2022 7:11 AM CDT Sexual Orientation Straight 12/30/2022 7: 11 AM CDT documented as of this encounter Plan of Treatment Not on file documented as of this encounter Results * HOLTER MONITOR - IN CLINIC VIDEO GAMES STORYWRITER (08/30/2024 10:03 AM MATERIALS TECHNICIAN) Min Heart Rate 54 bpm INFOB IONIC MOME Max Heart Rate 109 bpm INFOB IONIC MOME Mean Heart Rate 75 bpm INFOBIONIC MOME VE Total Beats 3 count INFOB IONIC MOME VE Percent Beats less than 1 percent INFOBIONIC MOME SVE Total Beats 34 count INFOBIONIC MOME SVE Percent Beats less than 1 percent INFOBIONIC MOME AF Count 0 count INFOBIONIC MOME AF Duration 0 duration INFOBION IC MOME AF Irrigon 0 percent INFOBIONIC MOME Symptom Count 0 count INFOBI ONIC MOME 2024 12:3 3 PM MATERIALS TECHNICIAN Narrative INFOBIONIC MOME - 08/31/2024 2:10 PM MATERIALS TECHNICIAN 1. The basic rhythm was sinus with sinus arrhythmia. The total analyzed time was 23h 47m. The heart rate varied from 54 to 109 bpm. The average HR was 75 bpm. 2. Premature ventricular complexes were noted fused. There were 3 PVCs recorded with a PVC burden of less than 1%. 3. Premature supraventricular complexes were noted singly. There were 34 PACs recorded with a PAC burden of less than 1%. 4. The patient reported palpitations with no events noted with which to correlate. Rn Pediatric: NILTON Aguilar/ NILTON Capellan Procedure Note Jarvis Samuels M.D., Ph.D. - 08/31/2024 1. The basic rhythm was sinus with sinus arrhythmia. The total analyzedtime was 23h 47m. The heart rate varied from 54 to 109 bpm. The average HRwas 75 bpm. 2. Premature ventricular complexes were noted fused. There were 3 PVCsrecorded with a PVC burden of less than 1%. 3. Premature supraventricular complexes were noted singly. There were 34PACs recorded with a PAC burden of less than 1%. 4. The patient reported palpitations with no events noted with which tocorrelate. Rn Pediatric: NILTON Aguilar/ NILTON Capellan Cal ARITA P.A.-C., M.S. CV CARDIAC S ERVICES PROCEDURES Final Result INFOBIOGHISLAINE MONTENEGRO NA * (TTE) 2D ECHO DOPPLER COLOR (2024 5:58 PM MATERIALS TECHNICIAN) Ejection Fraction 71 MC CV EIMS Proximal Ascending Aorta 37 MC CV EIMS Mid-Ascending Aorta 39 MC CV EIMS LV End-Diastolic Volume 98 MC CV EIMS LV End-Systolic Volume 29 MC CV EIMS MV E Velocity 0.7 MC CV EIMS MV A Velocity 0.7 MC CV EIMS MV E/A 1 MC CV EIMS MV e' Velocity Medial 0.08 MC CV EIMS MV e' Velocity Lateral 0.11 MC CV EIMS MV E/e' Medial 8.8 MC CV EIMS MV E/e' Lateral 6.4 MC CV EIMS Left ventricular stroke volume index 46 MC CV EIMS Cardiac Output 6.04 MC CV EIMS Cardiac Index 2.97 MC CV EIMS Tricuspid Annular S 0.12 MC CV EIMS TR Vmax 2.49 MC CV EIMS RA Pressure 5 MC CV EIMS RV Systolic Pressure 30 MC CV EIMS AV mean gradient 5 MC CV EIMS Aortic valve area 3.3 MC CV EIMS Aortic Valve Dimensionless Index 0.79 MC CV EIMS LA Volume Index 22 MC CV EIMS Aortic Valve Systolic Peak Velocity 1.6 MC CV EIMS Anatomical Region Laterality Modality Echocardiography 2024 4:50 PM MATERIALS TECHNICIAN Impressions 2024 6:35 PM MATERIALS TECHNICIAN LEFT VENTRICLE:Normal left ventricular chamber size. Sigmoid ventricular septum with basal septal prominence: 14 mm Increased left ventricular outflow tract flow velocities. Left ventricular outflow tract maximal instantaneous Doppler gradient with Valsalva 16 mm Hg. No dynamic left ventricular outflow tract obstruction at rest. Calculated 2-D biplane volumetric left ventricular ejection fraction of 71%. No regional wall motion abnormalities. Left ventricular cardiac index 2.97 l/min/m2. Normal left ventricular filling pressure at rest. RIGHT VENTRICLE:Normal right ventricular chamber size. Normal right ventricular systolic function. Estimated right ventricular systolic pressure 30 mmHg (right atrial pressure of 5 mmHg). ATRIA:Normal left atrial size. Left atrial volume index 22 ml/m2. Normal right atrial size. CARDIAC VALVES:Trileaflet aortic valve. Sclerotic aortic valve. No aortic valve regurgitation. Normal mitral valve. Trivial mitral valve regurgitation. Normal pulmonary valve. Normal pulmonary valve systolic velocities. Trivial pulmonary valve regurgitation. Normal tricuspid valve. Trivial tricuspid valve regurgitation. OTHER ECHO FINDINGS:Normal inferior vena cava size with normal inspiratory collapse (>50%). Normal proximal ascending aorta diameter of 37 mm. Normal mid ascending aorta diameter of 39 mm. Upper limit of normal of the mid ascending aorta, for age, sex and BSA is 41 mm. Abdominal aorta incompletely visualized. Lipomatous atrial septum. No atrial level shunt by color flow imaging. No intracardiac mass or thrombus, but the left atrial appendage cannot be visualized adequately with transthoracic echo to exclude thrombus in this location. No pericardial effusion. For the complete report, see the Order-Level Documents. Narrative 2024 6:35 PM MATERIALS TECHNICIAN For the complete report, see the Order-Level Documents. Hemodynamics Heart Rate: 64 BPM Blood Pressure: 138 / 62 mmHg ECG: Sinus rhythm Final Impressions 1. Normal left ventricular chamber size, no regional wall motion abnormalities, calculated 2-D biplane volumetric ejection fraction of 71%. 2. Sigmoid ventricular septum with basal septal prominence: 14 mm 3. Left ventricular outflow tract maximal instantaneous Doppler gradient with Valsalva 16 mm Hg. 4. Normal left ventricular filling pressure at rest. 5. Normal right ventricular chamber size, normal systolic function, estimated right ventricular systolic pressure 30 mmHg (right atrial pressure of 5 mmHg). 6. Normal inferior vena cava size with normal inspiratory collapse (>50%). 7. Sclerotic aortic valve. 8. No pericardial effusion. Procedure Note Roland Wei M.D. - 2024 For the complete report, see the Order-Level Documents. Hemodynamics Heart Rate: 64 BPM Blood Pressure: 138 / 62 mmHg ECG: Sinus rhythm Final Impressions 1. Normal left ventricular chamber size, no regional wall motionabnormalities, calculated 2-D biplane volumetric ejection fraction of71%. 2. Sigmoid ventricular septum with basal septal prominence: 14 mm 3. Left ventricular outflow tract maximal instantaneous Doppler gradientwith Valsalva 16 mm Hg. 4. Normal left ventricular filling pressure at rest. 5. Normal right ventricular chamber size, normal systolic function,estimated right ventricular systolic pressure 30 mmHg (right atrialpressure of 5 mmHg). 6. Normal inferior vena cava size with normal inspiratory collapse(>50%). 7. Sclerotic aortic valve. 8. No pericardial effusion. Findings LEFT VENTRICLE:Normal left ventricular chamber size. Sigmoid ventricularseptum with basal septal prominence: 14 mm Increased left ventricularoutflow tract flow velocities. Left ventricular outflow tract maximalinstantaneous Doppler gradient with Valsalva 16 mm Hg. No dynamic leftventricular outflow tract obstruction at rest. Calculated 2-D biplanevolumetric left ventricular ejection fraction of 71%. No regional wallmotion abnormalities. Left ventricular cardiac index 2.97 l/min/m2. Normalleft ventricular filling pressure at rest. RIGHT VENTRICLE:Normal right ventricular chamber size. Normal rightventricular systolic function. Estimated right ventricular systolicpressure 30 mmHg (right atrial pressure of 5 mmHg). ATRIA:Normal left atrial size. Left atrial volume index 22 ml/m2. Normalright atrial size. CARDIAC VALVES:Trileaflet aortic valve. Sclerotic aortic valve. No aorticvalve regurgitation. Normal mitral valve. Trivial mitral valveregurgitation. Normal pulmonary valve. Normal pulmonary valve systolicvelocities. Trivial pulmonary valve regurgitation. Normal tricuspid valve.Trivial tricuspid valve regurgitation. OTHER ECHO FINDINGS:Normal inferior vena cava size with normal inspiratorycollapse (>50%). Normal proximal ascending aorta diameter of 37 mm. Normalmid ascending aorta diameter of 39 mm. Upper limit of normal of the midascending aorta, for age, sex and BSA is 41 mm. Abdominal aortaincompletely visualized. Lipomatous atrial septum. No atrial level shuntby color flow imaging. No intracardiac mass or thrombus, but the leftatrial appendage cannot be visualized adequately with transthoracic echoto exclude thrombus in this location. No pericardial effusion. For the complete report, see the Order-Level Documents. Cal ARITA P.A.-C., M.S. CV ECHO PROC EDURES Final Result * (ABNORMAL) Lipid Panel (2024 10:18 AM MATERIALS TECHNICIAN) Triglycerides 219(H) mg/dL 2024 11:32 AM MATERIALS TECHNICIAN DTL Comment: ----REFERENCE VALUE---- Normal: <150 mg/dL Borderline High: 150-199 mg/dL High: 200-499 mg/dL Very High: > or =500 mg/dL Cholesterol, Total 142 mg/dL 2024 11:32 AM MATERIALS TECHNICIAN DTL Comment: ----REFERENCE VALUE---- Desirable: < 200 mg/dL Borderline High: 200 - 239 mg/dL High: > or = 240 mg/dL Cholesterol, LDL, Calculated 62 mg/dL 2024 11:32 AM MATERIALS TECHNICIAN DTL Comment: ----REFERENCE VALUE---- Desirable: <100 mg/dL Above Desirable: 100-129 mg/dL Borderline High: 130-159 mg/dL High: 160-189 mg/dL Very High: >=190 mg/dL ----ADDITIONAL INFORMATION---- LDL cholesterol calculated using the Cooper/NIH equation. Cholesterol, HDL, S 44 >=40 mg/dL 2024 11:32 AM MATERIALS TECHNICIAN DTL Cholesterol, Non-HDL, Calculated 98 mg/dL 2024 11:32 AM MATERIALS TECHNICIAN DTL Comment: ----REFERENCE VALUE---- Desirable: <130 mg/dL Above Desirable: 130-159 mg/dL Borderline High: 160-189 mg/dL High: 190-219 mg/dL Very High: > or =220 mg/dL Fasting (8 HR or more) Yes 2024 10:18 AM MATERIALS TECHNICIAN DTL Blood (Blood, Venous) 2024 10:18 AM MATERIALS TECHNICIAN 2024 10:56 AM MATERIALS TECHNICIAN Cal ARITA P.A.-C., M.S. LAB BLOOD AD D-ON Final Result Performing Organization Address [facility] Co de Phone Number [facility] [address] [place] [address], [facility] [address] [place] [address] * NT-Pro B-Type Natriuretic Peptide (BNP) (2024 10:18 AM MATERIALS TECHNICIAN) NT-Pro BNP <36 <=540 pg/mL 2024 11:32 AM MATERIALS TECHNICIAN DT Comment: NT-proBNP values less than 300 pg/mL have a 99% negative predictive value for excluding acute congestive heart failure. A cutoff of 1200 pg/mL for patients with an eGFR<60 yields a diagnostic sensitivity and specificity of 89% and 72% for acute congestive heart failure. A diagnostic NT-proBNP cutoff of 900 pg/mL has been suggested in adults 50-75 years of age in the absence of renal failure. Blood (Blood, Venous) 2024 10:18 AM MATERIALS TECHNICIAN 2024 10:56 AM MATERIALS TECHNICIAN Cal ARITA P.A.-C., M.S. LAB BLOOD AD D-ON Final Result Performing Organization Address City/[facility]/ZIP Co de Phone Number [facility] [address] [place] [address], [facility] [address] [place] [address] * Magnesium (2024 10:18 AM MATERIALS TECHNICIAN) Pathologist [facility] Magnesium, S 1.8 1.7 - 2.3 mg/dL 2024 11:32 AM MATERIALS TECHNICIAN DTL Blood (Blood, Venous) 2024 10:18 AM MATERIALS TECHNICIAN 2024 10:56 AM MATERIALS TECHNICIAN Cal ARITA P.A.-C., M.S. LAB BLOOD AD D-ON Final Result Performing Organization Address [facility] Co de Phone Number [facility] [address] [place] [address], [facility] [address] [place] [address] * Thyroid Function Freedom (2024 10:18 AM MATERIALS TECHNICIAN) TSH, Sensitive 2.5 0.3 - 4.2 mIU/L 2024 11:32 AM MATERIALS TECHNICIAN DTL Blood (Blood, Venous) 2024 10:18 AM MATERIALS TECHNICIAN 2024 10:56 AM MATERIALS TECHNICIAN us Cal ARITA P.A.-C., M.S. LAB BLOOD AD D-ON Final Result Performing Organization Address [facility] Co de Phone Number [facility] [address] [place] [address], [facility] [address] [place] [address] * (ABNORMAL) Comprehensive Metabolic Panel (2024 10:18 AM MATERIALS TECHNICIAN) Potassium, S 4.5 3.6 - 5.2 mmol/L 2024 11:32 AM MATERIALS TECHNICIAN DTL Sodium, S 139 135 - 145 mmol/L 2024 11:32 AM MATERIALS TECHNICIAN DTL Chloride, S 100 98 - 107 mmol/L 2024 11:32 AM MATERIALS TECHNICIAN DTL Bicarbonate, S 28 22 - 29 mmol/L 2024 11:32 AM MATERIALS TECHNICIAN DTL Anion Gap 11 7 - 15 2024 11:32 AM MATERIALS TECHNICIAN DTL BUN (Blood Urea Nitrogen), S 21 8 - 24 mg/dL 2024 11:32 AM MATERIALS TECHNICIAN DTL Creatinine 1.44(H) 0.74 - 1.35 mg/dL 2024 11:32 AM MATERIALS TECHNICIAN DTL Estimated GFR (eGFR) 54(L) >=60 mL/min/BS A 2024 11:32 AM MATERIALS TECHNICIAN DTL Comment: Estimated GFR calculated using the 2020 CKD_EPI creatinine equation. Calcium, Total, S 9.4 8.8 - 10.2 mg/dL 2024 11:32 AM MATERIALS TECHNICIAN DTL Glucose, S 167(H) 70 - 140 mg/dL 2024 11:32 AM MATERIALS TECHNICIAN DTL Protein, Total, S 6.7 6.3 - 7.9 g/dL 2024 11:32 AM MATERIALS TECHNICIAN DTL Albumin, S 4.2 3.5 - 5.0 g/dL 2024 11:32 AM MATERIALS TECHNICIAN DTL Aspartate Aminotransferase (AST), S 28 8 - 48 U/L 2024 11:32 AM MATERIALS TECHNICIAN DTL Alkaline Phosphatase, S 76 40 - 129 U/L 2024 11:32 AM MATERIALS TECHNICIAN DTL Alanine Aminotransferase (ALT), S 41 7 - 55 U/L 2024 11:32 AM MATERIALS TECHNICIAN DTL Bilirubin, Total, S 0.6 0.0 - 1.2 mg/dL 2024 11:32 AM MATERIALS TECHNICIAN DTL Blood (Blood, Venous) 2024 10:18 AM MATERIALS TECHNICIAN 2024 10:56 AM MATERIALS TECHNICIAN Cal ARITA, P.A.-C., M.S. LAB BLOOD AD D-ON Final Result [facility] [address] [place] [address], [facility] [address] [place] [address] * (ABNORMAL) CBC with Differential, Blood (2024 10:18 AM MATERIALS TECHNICIAN) Hemoglobin 15.6 13.2 - 16.6 g/dL 2024 11:08 AM MATERIALS TECHNICIAN DTL Hematocrit 46.7 38.3 - 48.6 % 2024 11:08 AM MATERIALS TECHNICIAN DTL Erythrocytes 5.36 4.35 - 5.65 x10(12)/L 2024 11:08 AM MATERIALS TECHNICIAN DTL MCV 87.1 78.2 - 97.9 fL 2024 11:08 AM MATERIALS TECHNICIAN DTL RBC Distrib Width 13.2 11.8 - 14.5 % 2024 11:08 AM MATERIALS TECHNICIAN DTL Platelet Count 304 135 - 317 x10(9)/L 2024 11:08 AM MATERIALS TECHNICIAN DTL Leukocytes 9.4 3.4 - 9.6 x10(9)/L 2024 11:08 AM MATERIALS TECHNICIAN DTL Neutrophils 6.05 1.56 - 6.45 x10(9)/L 2024 11:08 AM MATERIALS TECHNICIAN DHPM Lymphocytes 2.24 0.95 - 3.07 x10(9)/L 2024 11:08 AM MATERIALS TECHNICIAN DTL Monocytes 0.92(H) 0.26 - 0.81 x10(9)/L 2024 11:08 AM MATERIALS TECHNICIAN DTL Eosinophils 0.15 0.03 - 0.48 x10(9)/L 2024 11:08 AM MATERIALS TECHNICIAN DTL Basophils 0.05 0.01 - 0.08 x10(9)/L 2024 11:08 AM MATERIALS TECHNICIAN DTL Blood (Blood, Venous) 2024 10:18 AM MATERIALS TECHNICIAN 2024 10:41 AM MATERIALS TECHNICIAN Cal ARITA, P.A.-C., M.S. LAB BLOOD AD D-ON Final Result [facility] [address] [place] [address], [place] DTL [facility] [address] [place] [address] DHPM [facility] [address] [place] [address] * DX Chest AP or PA and Lateral 2 Views (2024 9:56 AM MATERIALS TECHNICIAN) Anatomical Region Laterality Modality Chest, Thoracic RST LOS, Tho racic ARZ LOS, Thoracic FLA LOS N/A Digital Radiography Impressions 2024 10:37 AM MATERIALS TECHNICIAN No significant change since 02/06/2019. Tortuous, mildly calcified aorta with mild prominence of the ascending aorta. Mild scarring left lung base. Chest is otherwise negative. Narrative 2024 10:37 AM MATERIALS TECHNICIAN EXAM: DX CHEST AP OR PA AND LATERAL 2 VIEWS Procedure Note Kenneth Bowling M.D. - 2024 EXAM: DX CHEST AP OR PA AND LATERAL 2 VIEWS IMPRESSION: No significant change since 02/06/2019. Tortuous, mildly calcified aortawith mild prominence of the ascending aorta. Mild scarring left lung base.Chest is otherwise negative. Promise Rangel.A.-Ann., M.S. IMG DIAGNOST IC IMAGING PROCEDURES Final Result * ECG 12 Lead (2024 9:41 AM MATERIALS TECHNICIAN) Ventricular Rate ECG/Min 79 BPM MUSE ME Interval 198 ms MUSE QRSD Interval 104 ms MUSE QT Interval 360 ms MUSE QTC Interval 412 ms MUSE P Excelsior 45 degrees MUSE R Excelsior -16 degrees MUSE T Wave Excelsior 49 degrees MUSE 2024 9:41 AM MATERIALS TECHNICIAN 2024 9:52 AM MATERIALS TECHNICIAN Impressions MUSE - 2024 9:52 AM MATERIALS TECHNICIAN Normal sinus rhythm Normal ECG When compared with ECG of 31-Dec-2022 15:06, No significant change was found Reviewed by NILTON Albright Narrative Procedure Note Gerardo Duncan Jr., M.D. - 2024 IMPRESSION: Normal sinus rhythm Normal ECG When compared with ECG of 31-Dec-2022 15:06, No significant change was found Reviewed by NILTON Albright Cal ARITA, P.A.-C., M.S. ECG ORDERABL ES Final Result MUSE NA documented in this encounter Visit Diagnoses Diagnosis Palpitations- Primary Dizziness Shortness Of Breath Hyperlipidemia Dizziness Palpitations Shortness Of Breath Dizziness Palpitations Shortness Of Breath Dizziness Palpitations Shortness Of Breath documented in this encounter
--- OUTSIDE RECORDS SUMMARY | 2024-09-26 08:03 | XMS_ITS | Encounter Summary ---
Author Organization [facility] Address [address] [place] [address] Care Team Providers Care Packager Head Name Role Phone Unavailable Primary Care Provider Unavailabl e Reason for Visit * Reason Onset Date Comments Echo Move Up Request 08/23/2024 Encounter Details Date Type Department Care Team (Latest Contact Info) Description 08/23/2024 Clinical Communication Department of Cardiovascular Medicine in [place], [place] [address] [place] [address] Systems Integration AdvisorAdams M.D. Echo Move Up Request Social History Tobacco Use Types Packs/Day Years [...] AM CDT Legal Sex Male 9:28 AM TIP PRINTER Gender Identity Male 12/30/2022 7:11 AM CDT Sexual Orientation Straight 12/30/2022 7: 11 AM CDT documented as of this encounter Miscellaneous Notes * Telephone Encounter - Pitcher, Angélica J - 08/23/2024 2:41 PM CST ECHO MOVE UP REQUEST If there is any additional information please add it to the bottom. (I.E. provider request, nursingrequest, etc.) Appt Type: NEW Wednesday: Date: 09/11 6:30 am, 7:50 am, 9:20 am, or 10:40 am Evening? No When does the provider see (date and time)?: 09/11 1:15 Are there times that do not work for pt?: No Is testing flexible to accommodate the echo?: Yes Pool for replies: P RST CVD COMP SCHEDULING PRINTER documented in this encounter Plan of Treatment Not on file documented as of this encounter Visit Diagnoses Not on filedocumented in this encounter
--- OUTSIDE RECORDS SUMMARY | 2024-09-26 08:03 | XMS_ITS | Encounter Summary ---
Author Organization [facility] Address [address] [place] [id number] Care Team Providers Care Bearing Ring Assembler Name Role Phone Unavailable Primary Care Provider Unavailabl e Encounter Details Date Type Department Care Team (Latest Contact Info) Description 2024 10:04 AM CHIEF JAILER - 2024 12:27 PM [facility] Hospital Encounter Department of Laboratory Medicine and Pathology, [facility], in [place], [place] [address] [place] [address] Cal Ren, MAXS, P.A.-C., M.S. [address] [place] [address] Dizziness; Palpitations; Shortness Of Breath; Hyperlipidemia Discharge Disposition: Home or Self Care Social [...] AM CDT Legal Sex Male 9:28 AM CHIEF JAILER Gender Identity Male 12/30/2022 7:11 AM CDT Sexual Orientation Straight 12/30/2022 7: 11 AM CDT documented as of this encounter Medications at Time of Discharge aspirin [address] tablet Take 81 mg by mouth daily. 05/17/2009 atorvastatin (LIPITOR) 40 mg tablet Take 40 mg by mouth daily. 11/28/2017 DME CPAPIndications: Obstructive Sleep Apnea Adult DME Order 1 Device 08/08/2020 flaxseed oiL 1,000 mg capsule Take 1 [...] tablet Take by mouth daily. 05/17/2009 omega 7-bwj-owo-fish oil (FISH OIL) 1,000 mg (120 mg-180 mg) capsule Take 1,000 mg by mouth daily. 05/17/2009 omeprazole (PriLOSEC) 20 mg capsule Take 20 mg by mouth every morning before breakfast. 11/22/2017 saw palmetto fruit 450 mg capsule Take by mouth daily. 10/21/2012 triamcinolone (KENALOG) 0.1 % cream Apply 1 Application topically as needed. 12/23/2021 documented as of this encounter Plan of Treatment Not on file documented as of this encounter Procedures Procedure Name Priority Date/Time Associated Diagnosis Comments LIPID PANEL, S Routine 2024 10:18 AM CHIEF JAILER Dizziness Palpitations Shortness Of Breath Hyperlipidemia THYROID FUNCTION CASCADE, S Routine 2024 10:18 AM CHIEF JAILER Dizziness Palpitations Shortness Of Breath NT-PRO B-TYPE NATRIURETIC PEPTIDE (BNP), S Routine 2024 10:18 AM CHIEF JAILER Dizziness Palpitations Shortness Of Breath CBC WITH DIFFERENTIAL, B Routine 2024 10:18 AM CHIEF JAILER Dizziness Palpitations Shortness Of Breath MAGNESIUM, S Routine 2024 10:18 AM CHIEF JAILER Dizziness Palpitations Shortness Of Breath COMPREHENSIVE METABOLIC PANEL, S/P Routine 2024 10:18 AM CHIEF JAILER Dizziness Palpitations Shortness Of Breath documented in this encounter Results * (ABNORMAL) Lipid Panel (2024 10:18 AM CHIEF JAILER) Triglycerides 219(H) mg/dL 2024 11:32 AM CHIEF JAILER DTL Comment: ----REFERENCE VALUE---- Normal: <150 mg/dL Borderline High: 150-199 mg/dL High: 200-499 mg/dL Very High: > or =500 mg/dL Cholesterol, Total 142 mg/dL 2024 11:32 AM CHIEF JAILER DTL Comment: ----REFERENCE VALUE---- Desirable: < 200 mg/dL Borderline High: 200 - 239 mg/dL High: > or = 240 mg/dL Cholesterol, LDL, Calculated 62 mg/dL 2024 11:32 AM CHIEF JAILER DTL Comment: ----REFERENCE VALUE---- Desirable: <100 mg/dL Above Desirable: 100-129 mg/dL Borderline High: 130-159 mg/dL High: 160-189 mg/dL Very High: >=190 mg/dL ----ADDITIONAL INFORMATION---- LDL cholesterol calculated using the Cooper/NIH equation. Cholesterol, HDL, S 44 >=40 mg/dL 2024 11:32 AM CHIEF JAILER DTL Cholesterol, Non-HDL, Calculated 98 mg/dL 2024 11:32 AM CHIEF JAILER DTL Comment: ----REFERENCE VALUE---- Desirable: <130 mg/dL Above Desirable: 130-159 mg/dL Borderline High: 160-189 mg/dL High: 190-219 mg/dL Very High: > or =220 mg/dL Fasting (8 HR or more) Yes 2024 10:18 AM CHIEF JAILER DTL Blood (Blood, Venous) 2024 10:18 AM CHIEF JAILER 2024 10:56 AM CHIEF JAILER Cal ARITA P.A.-C., M.S. LAB BLOOD AD D-ON Final Result Performing Organization Address City/[facility]/ZIP Co de Phone Number [facility] [address] [place] [address], [facility] [address] [place] [address] * NT-Pro B-Type Natriuretic Peptide (BNP) (2024 10:18 AM CHIEF JAILER) NT-Pro BNP <36 <=540 pg/mL 2024 11:32 AM CHIEF JAILER DTL Comment: NT-proBNP values less than 300 pg/mL [...] failure. Blood (Blood, Venous) 2024 10:18 AM CHIEF JAILER 2024 10:56 AM CHIEF JAILER Cal ARITA P.A.-C., M.S. LAB BLOOD AD D-ON Final Result Performing Organization Address City/[facility]/ZIP Co de Phone Number [facility] [address] [place] [address], [facility] [address] [place] [address] * Magnesium (2024 10:18 AM CHIEF JAILER) Magnesium, S 1.8 1.7 - 2.3 mg/dL 2024 11:32 AM CHIEF JAILER DTL Blood (Blood, Venous) 2024 10:18 AM CHIEF JAILER 2024 10:56 AM CHIEF JAILER us Cal ARITA P.A.-C., M.S. LAB BLOOD AD D-ON Final Result Performing Organization Address City/[facility]/ZIP Co de Phone Number [facility] [address] [place] [address] * Thyroid Function Saline (2024 10:18 AM CHIEF JAILER) TSH, Sensitive 2.5 0.3 - 4.2 mIU/L 2024 11:32 AM CHIEF JAILER DTL Blood (Blood, Venous) 2024 10:18 AM CHIEF JAILER 2024 10:56 AM CHIEF JAILER Cal ARITA P.A.-C., M.S. LAB BLOOD AD D-ON Final Result Performing Organization Address [facility] Co de Phone Number [facility] [address] [place] [address] * (ABNORMAL) Comprehensive Metabolic Panel (2024 10:18 AM CHIEF JAILER) Potassium, S 4.5 3.6 - 5.2 mmol/L 2024 11:32 AM CHIEF JAILER DTL Sodium, S 139 135 - 145 mmol/L 2024 11:32 AM CHIEF JAILER DTL Chloride, S 100 98 - 107 mmol/L 2024 11:32 AM CHIEF JAILER DTL Bicarbonate, S 28 22 - 29 mmol/L 2024 11:32 AM CHIEF JAILER DTL Anion Gap 11 7 - 15 2024 11:32 AM CHIEF JAILER DTL BUN (Blood Urea Nitrogen), S 21 8 - 24 mg/dL 2024 11:32 AM CHIEF JAILER DTL Creatinine 1.44(H) 0.74 - 1.35 mg/dL 2024 11:32 AM CHIEF JAILER DTL Estimated GFR (eGFR) 54(L) >=60 mL/min/BS A 2024 11:32 AM CHIEF JAILER DTL Comment: Estimated GFR calculated using the 2020 CKD_EPI creatinine equation. Calcium, Total, S 9.4 8.8 - 10.2 mg/dL 2024 11:32 AM CHIEF JAILER DTL Glucose, S 167(H) 70 - 140 mg/dL 2024 11:32 AM CHIEF JAILER DTL Protein, Total, S 6.7 6.3 - 7.9 g/dL 2024 11:32 AM CHIEF JAILER DTL Albumin, S 4.2 3.5 - 5.0 g/dL 2024 11:32 AM CHIEF JAILER DTL Aspartate Aminotransferase (AST), S 28 8 - 48 U/L 2024 11:32 AM CHIEF JAILER DTL Alkaline Phosphatase, S 76 40 - 129 U/L 2024 11:32 AM CHIEF JAILER DTL Alanine Aminotransferase (ALT), S 41 7 - 55 U/L 2024 11:32 AM CHIEF JAILER DTL Bilirubin, Total, S 0.6 0.0 - 1.2 mg/dL 2024 11:32 AM CHIEF JAILER DTL Blood (Blood, Venous) 2024 10:18 AM CHIEF JAILER 2024 10:56 AM CHIEF JAILER Cal ARITA PLuis ArmandoA.-C., M.S. LAB BLOOD AD D-ON Final Result [facility] [address] [place] [address], [facility] [address] [place] [address] * (ABNORMAL) CBC with Differential, Blood (2024 10:18 AM CHIEF JAILER) Hemoglobin 15.6 13.2 - 16.6 g/dL 2024 11:08 AM CHIEF JAILER DTL Hematocrit 46.7 38.3 - 48.6 % 2024 11:08 AM CHIEF JAILER DTL Erythrocytes 5.36 4.35 - 5.65 x10(12)/L 2024 11:08 AM CHIEF JAILER DTL MCV 87.1 78.2 - 97.9 fL 2024 11:08 AM CHIEF JAILER DTL RBC Distrib Width 13.2 11.8 - 14.5 % 2024 11:08 AM CHIEF JAILER DTL Platelet Count 304 135 - 317 x10(9)/L 2024 11:08 AM CHIEF JAILER DTL Leukocytes 9.4 3.4 - 9.6 x10(9)/L 2024 11:08 AM CHIEF JAILER DTL Neutrophils 6.05 1.56 - 6.45 x10(9)/L 2024 11:08 AM CHIEF JAILER DHPM Lymphocytes 2.24 0.95 - 3.07 x10(9)/L 2024 11:08 AM CHIEF JAILER DTL Monocytes 0.92(H) 0.26 - 0.81 x10(9)/L 2024 11:08 AM CHIEF JAILER DTL Eosinophils 0.15 0.03 - 0.48 x10(9)/L 2024 11:08 AM CHIEF JAILER DTL Basophils 0.05 0.01 - 0.08 x10(9)/L 2024 11:08 AM CHIEF JAILER DTL Blood (Blood, Venous) 2024 10:18 AM CHIEF JAILER 2024 10:41 AM CHIEF JAILER Cal ARITA P.A.-C., M.S. LAB BLOOD AD D-ON Final Result [facility] [address] [place] [address], [facility] DTL [facility] [address] [place] [address] DHPM [facility] [address] [place] [address] documented in this encounter Visit Diagnoses Diagnosis Dizziness Palpitations Shortness Of Breath Hyperlipidemia documented in this encounter
--- OUTSIDE RECORDS SUMMARY | 2024-09-26 08:03 | XMS_ITS | Encounter Summary ---
Author Organization [facility] Address [address] [place] [address] Care Team Providers Care Branch Or Department Chief Librarian Name Role Phone Unavailable Primary Care Provider Unavailabl e Reason for Referral * Outpatient (Routine) - Closed Specialty Diagnoses / Procedures Referred By Hyacinth larsen Referred To Contact Diagnoses Dizziness Palpitations Shortness Of Breath Procedures DX Chest AP or PA and Lateral 2 Views Cal Ren MPAS, P.A.-C., M.S. [address] [place] [phone] Phone: tel: fax: [facility] Referral ID Status Reason Start Date Expiration Date Visits Re quested Visits Authorized [id number] Closed 08/22/2024 11/22/2025 1 1 GE PRESS OPERATOR Reason for Visit * Outpatient (Routine) - Closed Specialty Diagnoses / Procedures Referred By Contac t Referred To Contact Diagnoses Dizziness Palpitations Shortness Of Breath Procedures DX Chest AP or PA and Lateral 2 Views Cal Ren MPAS, P.A.-C., M.S. [address] [place] [phone] Phone: tel: fax: [facility] Referral ID Status Reason Start Date Expiration Date Visits Re quested Visits Authorized [id number] Closed 08/22/2024 11/22/2025 1 1 Encounter Details Date Type Department Care Team (Latest Contact Info) Description 2024 9:50 AM SPONGE PRESS OPERATOR - 2024 10:03 AM SPONGE PRESS OPERATOR Hospital Encounter Department of Radiology, [facility], in [place], [place] [address] [place] [address] Cal Ren MPAS, P.A.-C., M.S. [address] [place] [address] Dizziness; Palpitations; Shortness Of Breath Discharge Disposition: Home or Self Care Social [...] AM CDT Legal Sex Male 9:28 AM SPONGE PRESS OPERATOR Gender Identity Male 12/30/2022 7:11 AM [...] tablet Take by mouth daily. 05/17/2009 omega 3-ixf-yln-fish oil (FISH OIL) 1,000 mg (120 mg-180 [...] Procedure Name Priority Date/Time Associated Diagnosis Comments DX CHEST AP OR PA AND LATERAL 2 VIEWS RAD - Routine (most inpatients and all outpatients) 2024 9:56 AM SPONGE PRESS OPERATOR Dizziness Palpitations Shortness Of Breath documented in this encounter Results * DX Chest AP or PA and Lateral 2 Views (2024 9:56 AM SPONGE PRESS OPERATOR) Anatomical Region Laterality Modality Chest, Thoracic RST LOS, Tho racic ARZ LOS, Thoracic FLA LOS N/A Digital Radiography Impressions 2024 10:37 AM SPONGE PRESS OPERATOR No significant change since 02/06/2019. Tortuous, mildly calcified aorta with mild prominence of the ascending aorta. Mild scarring left lung base. Chest is otherwise negative. Narrative 2024 10:37 AM SPONGE PRESS OPERATOR EXAM: DX CHEST AP OR PA AND LATERAL 2 VIEWS Procedure Note Kenneth Bowling M.D. - 2024 EXAM: DX CHEST AP OR PA AND LATERAL 2 VIEWS IMPRESSION: No significant change since 02/06/2019. Tortuous, mildly calcified aortawith mild prominence of the ascending aorta. Mild scarring left lung base.Chest is otherwise negative. us Cal ARITA PTyshawn.-C., M.S. IMG DIAGNOST IC IMAGING PROCEDURES Final Result documented in this encounter Visit Diagnoses Diagnosis Dizziness Palpitations Shortness Of Breath documented in this encounter
--- OUTSIDE RECORDS SUMMARY | 2024-09-26 08:03 | XMS_ITS | Clinical Summary ---
Author Organization [facility] Address [address] [place] [address] Care Team Providers Care Secondary Education Professor Name Role Phone Unavailable Primary Care Provider Unavailabl e Source Comments Patient records contain information from all sites at [facility]. For routine questions regarding patient records, call [phone] during business hours, M-F 8:00 AM - 5:00 PM Central Time. Record requests for emergency care only can be directed to [phone] at any time.[facility] Allergies Active Allergy Reactions Criticality Noted Date Comments Atenolol Hypotension (Reselect Reaction) 03/2019 syncope Codeine Nausea And Vomiting 07/06/2006 Morphine Hypotension (Reselect Reaction) 11/2005 syncope Medications aspirin [address] tablet Take 81 mg by mouth daily. 9 Active atorvastatin (LIPITOR) 40 mg tablet Take 40 mg by mouth daily. 8 Active glucosamine-cho ndroitin (GLUCOSAMINE-CH ONDROITIN) 500-400 mg per capsule Take 2 capsules by mouth daily. 6 Active hydroCHLOROthia zide (HYDRODIURIL) 12.5 mg tablet Take 6.25 mg by mouth daily. 8 Active lisinopril (PRINIVIL,ZESTR IL) 5 mg tablet Take 5 mg by mouth daily. 8 Active multivitamin tablet Take by mouth daily. 9 Active omeprazole (PriLOSEC) 20 mg capsule Take 20 mg by mouth every morning before breakfast. 8 Active saw palmetto fruit 450 mg capsule Take by mouth daily. 3 Active omega 0-yqg-olt-fish oil (FISH OIL) 1,000 mg (120 mg-180 mg) capsule Take 1,000 mg by mouth daily. 9 Active DME CPAPIndications :Obstructive Sleep Apnea Adult DME Order 1 Device 1 Active lactobacillus comb no.10 (Probiotic) 20 billion cell capsule Take 1 capsule by mouth daily. 9 Active flaxseed oiL 1,000 mg capsule Take 1 capsule by mouth daily. 0 Active triamcinolone (KENALOG) 0.1 % cream Apply 1 Application topically as needed. 2 Active rosuvastatin (Crestor) 40 mg tablet Take 1 tablet by mouth at bedtime. 5 Active ezetimibe (Zetia) 10 mg tablet Take 1 tablet (10 mg total) by mouth daily. 30 tablet 11 5 Active Hospital, Clinic, or Other Facility Administered Medication Ordered Dose Route Frequency Start Date End Date Status lidocaine-EPINEPHrine 1%-1:200,000 injection 2-50 mL (XYLOCAINE W/EPI)Indications:Squamous Cell Carcinoma In Situ 2 - 50 mL inj As needed 03/01/2023 Ac tive Active Problems Problem Noted Date Diagnosed Date Microhematuria 03/09/2019 Hematuria Urinalysis 02/07/2019 Obstructive Sleep Apnea Adult 11/17/2018 Dyspnea 11/17/2018 Palpitations 12/28/2017 Murmur Aortic Outflow 12/28/2017 Hypertension Essential Primary 12/28/2017 Hyperlipidemia On Treatment 12/28/2017 Benign Prostatic Hyperplasia Hypertrophy With Ob struction 12/28/2017 Resolved Problems Problem Noted Date Diagnosed Date Resolved Date Fatigue Extreme 11/17/2018 11/17/2018 Atherosclerotic Heart Diseas e Of [place] Coronary Artery Without Angina Pectoris 11/17/2018 11/17/2018 Encounters Date Type Department Care Team Description 09/21/2024 9:58 AM CANE FEEDER - 09/21/2024 11:59 PM CANE FEEDER Hospital Encounter Department of Cardiovascular Diseases in [place], [place] [address] [place] [phone] Kev Buchanan M.B.B.S. Acquired Aortic Valve Disorder Discharge Disposition: Home or Self Care 09/21/2024 Results Follow-Up RST CVD Kev Buchanan M.B.B.S. Echo Transesophageal (LEOBARDO) 09/12/2024 7:13 AM CANE FEEDER - 09/12/2024 11:59 PM CANE FEEDER Hospital Encounter Department of Cardiovascular Diseases in [place], [place] [address] [place] [phone] Kev Buchanan M.B.B.S. Dizziness Discharge Disposition: Home or Self Care 09/12/2024 Results Follow-Up RST CVD Kev Buchanan M.B.B.S. Echo Stress 09/11/2024 1:15 PM CANE FEEDER Comprehensive Visit Department of Cardiovascular Medicine in [place], [place] [address] [place] [phone] Kev Buchanan M.B.B.S. Dizziness (Primary Dx); Diabetes Mellitus Type 2 (HCC); Hypertension Essential Primary; Hyperlipidemia On Treatment; Beat Premature Ventricular; Atrial Premature Depolarization; Family History Cardiovascular Disease 2024 3:33 PM CANE FEEDER - 2024 11:59 PM CANE FEEDER Hospital Encounter Department of Cardiovascular Diseases in [place], [place] [address] [place] [phone] Cal Ren MPAS, P.A.-C., M.S. Dizziness; Palpitations; Shortness Of Breath Discharge Disposition: Home or Self Care 2024 12:28 PM CANE FEEDER - 2024 3:32 PM CANE FEEDER Hospital Encounter Department of Cardiovascular Diseases in [place], [place] [address] [place] [phone] Cal Ren MPAS, P.A.-C., M.S. Dizziness; Palpitations; Shortness Of Breath Discharge Disposition: Home or Self Care 2024 10:04 AM CANE FEEDER - 2024 12:27 PM CANE FEEDER Hospital Encounter Department of Laboratory Medicine and Pathology, [facility] in [place], [place] [address] [place] [phone] Cal Ren MPAS, P.A.-C., M.S. Dizziness; Palpitations; Shortness Of Breath; Hyperlipidemia Discharge Disposition: Home or Self Care 2024 9:50 AM CANE FEEDER - 2024 10:03 AM CANE FEEDER Hospital Encounter Department of Radiology, [facility], in [place], [place] [address] [place] [phone] Cal Ren MPAS, P.A.-C., M.S. Dizziness; Palpitations; Shortness Of Breath Discharge Disposition: Home or Self Care 08/23/2024 Clinical Communication Department of Cardiovascular Medicine in [place], [place] [address] [place] [phone] Senior Accountant Adams M.D. Echo Move Up Request 08/21/2024 Referral Triage Department of Cardiovascular Medicine in [place], [place] [address] [place] [phone] Senior Accountant Adams M.D. Referral Triage (CVD) from Last 3 Months Immunizations Immunization Administration Dates Next Due HZV (ZOSTAVAX) 06/09/2015 HepA Adult 2010,05/22/2009 Influenza, Injectable, Quadrivalent 06/12/2019,1 Influenza, Seasonal, Injectable 06/16/20 16,06/09/2015,06/19/2013,2011 Measles 12/09/1976 RZV (SHINGRIX) 06/28/2018,11/22/2017 Td (Adult), adsorbed 08/28/1999 Td Preservative Free (TENIVA C, DECAVAC) 02/19/2005 Tdap 12/25/2021,09/25/2011 influenza vaccine QV(FLUBLOK ) (18 years or older) (PF) 05/15/2022,05/09/2021,06/15/2020 influenza vaccine quad (FLUZONE/FLUARIX) (6 months and older)(PF) 06/03/2014 Family History Medical History Relation Name Comments Sleep apnea Brother 1 Sleep apnea Brother 2 Alcohol abuse Brother 3 Hans Yap Arthritis Brother 3 Hans Yap Coronary artery disease Brother 3 Hans Yap Hear t issues Hyperlipidemia Brother 3 Hans Yap Hypertension Brother 3 Hans Yap Prostate cancer Brother 3 Hans Yap prostate Sleep apnea Brother 3 Hans Yap Asthma Brother 4 Juanjo Yap Diabetes Brother 4 Juanjo Yap Prostate cancer Brother 4 Juanjo Yap prostate Arthritis Brother 5 Marlon Yap Coronary artery disease Brother 5 Marlon Yap va lve replaced Hyperlipidemia Brother 5 Marlon Yap Hypertension Brother 5 Marlon Yap Prostate cancer Brother 5 Marlon Yap prostate Sleep apnea Brother 5 Marlon Yap Coronary artery disease Brother 6 Mario Yap Aort a valve replaced Prostate cancer Brother 6 Mario Yap prostate Arthritis Father Herb Yap Hyperlipidemia Father Herb Yap Hypertension Father Herb Yap Migraines Father Herb Yap Prostate cancer Father Herb Yap Restless legs syndrome Father Herb Yap Stroke Father Herb Yap Prostate cancer Father's Brother 1 Alonzo Yap Prostate cancer Father's Brother 2 John Yap Prostate cancer Father's Brother 3 Chucho Yap Jr Coronary artery disease Mother Cristiana Marely He art attack Depression Mother Cristiana Yap Diabetes Mother Cristiana Yap Gestational diabetes Mother Cristiana Yap Hyperlipidemia Mother Cristiana Yap Hypertension Mother Cristiana Yap Prostate cancer Paternal Grandfather Chucho Marely Restless legs syndrome Sister 1 Sleep apnea Sister 1 Sleep apnea Sister 2 Breast cancer Sister 3 Darshana Rasheed Lymphoma Sister 3 Darshana Rasheed Arthritis Sister 4 Hamilton Yap Breast cancer Sister 4 Hamilton Yap Hyperlipidemia Sister 4 Hamilton Yap Hypertension Sister 4 Hamilton Yap Sleep apnea Sister 4 Hamilton Yap Arthritis Sister 5 Keren Burroughs Diabetes Sister 5 Keren Burroughs Hyperlipidemia Sister 5 Keren Burroughs Hypertension Sister 5 Keren Burroughs Sleep apnea Sister 5 Keren Burroughs Relation Name Status Comments Brother 1 Brother 2 Brother 3 Hans Yap Alive Brother 4 Juanjo Yap Alive Brother 5 Marlon Yap Alive Brother 6 Mario Yap Alive Father Herb Yap Father's Brother 1 Alonzo Yap Alive Father's Brother 2 John Yap Alive Father's Brother 3 Chucho Yap Jr Alive Mother Cristiana Marely Alive Paternal Grandfather Chucho Yap Alive Sister 1 Sister 2 Sister 3 Darshana Rasheed Alive Sister 4 Hamilton Yap Alive Sister 5 Keren Burroughs Alive Social History Tobacco Use Types Packs/Day Years Used Date Smoking Tobacco: Never Smokeless Tobacco: Never Tobacco Cessation:Counseling Given: Not Answered Alcohol Use Standard Drinks/Week Comments Yes 1 (1 standard drink = 0.6 oz pur e alcohol) 1-2 drinks/week [facility] Utilities Answer Date Recorded In the past 12 months has e electric, gas, oil, or water company [...] your living situation today? I have a [facility] place to live 09/06/2024 Sex and Gender Information Value Date Recorded Sex Assigned at Male 12/30/2022 7:10 AM CDT Legal Sex Male 9:28 AM CANE FEEDER Gender Identity Male 12/30/2022 7:11 AM CDT Sexual Orientation Straight 12/30/2022 7: 11 AM CDT Last Filed Vital Signs Vital Sign Reading Time Taken Comments Blood Pressure 113/79 09/21/2024 11:42 AM CANE FEEDER Pulse 61 09/21/2024 11:39 AM CANE FEEDER Temperature - - Respiratory Rate 17 09/21/2024 11:39 AM CANE FEEDER Oxygen Saturation 96% 09/21/2024 11:39 AM CANE FEEDER Inhaled Oxygen Concentration - - Weight 92 kg (202 lb 13.2 oz) 2024 6:12 PM CANE FEEDER Height 163 cm (5' 4.17) 2024 6:12 PM CANE FEEDER Body Mass Index 34.63 2024 6:12 PM CANE FEEDER Plan of Treatment Health Maintenance Due Date Last Done Comments CT Colonography 1960 Cologuard 1960 FIT 1960 Hepatitis C Screening 1960 Office Visit for Blood Pressure Check / Re-check 01/01/2024 12/31/2022 Depression Screening (Annual PHQ-2) 08/02/2024 COVID-19 Vaccine ( season) 2024 06/06/2024, 06/09/2023, 05/15/2022, Additional history exists Creatinine Level (Kidney Function Test) 2025 2024, 07/21/2024, 08/03/2023, Additional history exists Potassium Level 2025 2024, 07/03, 08/03/2023, Additional history exists Sodium Level 2025 2024, 07/03, 08/03/2023, Additional history exists Fasting Glucose for Diabetes Screening 2027 2024, 07/21/2024, 08/03/2023, Additional history exists Lipid (Cholesterol) Screening 2029 2024, 08/03/2023, 12/30/2022, Additional history exists DTaP,Tdap,and Td Vaccines (3 - Td or Tdap) 12/26/2031 12/25/2021, 09/25/2011, 02/19/2005, Additional history exists Colonoscopy 12/30/2031 12/29/2021 (Perf ormed elsewhere), 01/16/2021 Colorectal Cancer Screening 12/30/2031 Hepatitis A Vaccines Completed 2010, 05/22/20 09 Zoster Vaccines Completed 06/28/2018, 04/2 09/2017, 06/09/2015 Pneumococcal vaccine (50+ years) Completed 10/07/2023 Influenza Vaccine Completed 06/06/2024, , 05/15/2022, Additional history exists Fall Risk Screen (Annual) Completed 09/21/2024 IPV Vaccines Aged Out No longer eligi ble based on patient's age to complete this topic Procedures Procedure Name Priority Date/Time Associated Diagnosis Comments (LEOBARDO) 2D WITH COLOR, LIMITED DOPPLER AND CONTRAST Routine 09/21/2024 11:32 AM CANE FEEDER Acquired Aortic Valve Disorder ECHO STRESS 2D WITH COLOR, LIMITED DOPPLER AND CONTRAST Routine 09/12/2024 8:44 AM CANE FEEDER Dizziness HOLTER MONITOR - IN CLINIC METAL PICKLING EQUIPMENT OPERATOR Routine 08/30/2024 10:03 AM CANE FEEDER Dizziness Palpitations Shortness Of Breath (TTE) 2D ECHO DOPPLER COLOR Routine 2024 5:58 PM CANE FEEDER Dizziness Palpitations Shortness Of Breath LIPID PANEL, S Routine 2024 10:18 AM CANE FEEDER Dizziness Palpitations Shortness Of Breath Hyperlipidemia NT-PRO B-TYPE NATRIURETIC PEPTIDE (BNP), S Routine 2024 10:18 AM CANE FEEDER Dizziness Palpitations Shortness Of Breath MAGNESIUM, S Routine 2024 10:18 AM CANE FEEDER Dizziness Palpitations Shortness Of Breath THYROID FUNCTION CASCADE, S Routine 2024 10:18 AM CANE FEEDER Dizziness Palpitations Shortness Of Breath COMPREHENSIVE METABOLIC PANEL, S/P Routine 2024 10:18 AM CANE FEEDER Dizziness Palpitations Shortness Of Breath CBC WITH DIFFERENTIAL, B Routine 2024 10:18 AM CANE FEEDER Dizziness Palpitations Shortness Of Breath DX CHEST AP OR PA AND LATERAL 2 VIEWS RAD - Routine (most inpatients and all outpatients) 2024 9:56 AM CANE FEEDER Dizziness Palpitations Shortness Of Breath ECG Routine 2024 9:41 AM CANE FEEDER Dizziness Palpitations Shortness Of Breath from Last 3 Months Results * (LEOBARDO) 2D WITH COLOR, LIMITED DOPPLER AND CONTRAST (09/21/2024 11:32 AM CANE FEEDER) Ejection Fraction [address] [facility] Mallampati As documented in the RN pre-procedure assessment [facility] ASA Class II [facility] Echo H and P 09/21/2024 11:[address] [facility] Anatomical Region Laterality Modality Echocardiography 09/21/2024 10:0 5 AM CANE FEEDER Impressions 09/21/2024 1:09 PM CANE FEEDER PRE-SEDATION ASSESSMENT & CONSENT (performed immediately prior [...] documented in the medical record and the risk assessment analyst. The physician independently performed a pertinent examination [...] performed at the request of the primary slitter service and setter. Transesophageal echocardiogram performed by the physician electrical assembler(s), as listed in this report. Adult probe [...] causing suboptimal opacification of interatrial septum. No hzvos-wi-[id number] shunt at atrial level at rest or [...] Sedation Narrator or other pertinent record in [facility] for additional procedure and sedation information. Physician signed for procedural medications and the patient was discharged when discharge criteria were met. For the complete report, see the Order-Level Documents. Narrative 09/21/2024 1:09 PM CANE FEEDER For the complete report, see the Order-Level [...] as documented inthe medical record and the risk assessment analyst. The physician independentlyperformed a pertinent examination including [...] performed at the request of the primaryservice review consultant. Transesophageal echocardiogram performed by thehebrew rehabilitation centersician electrical assembler(s), as listed in this report. Adult probeinserted [...] atrium, causing suboptimalopacification of interatrial septum. No eicec-[id number]-lqkk shunt at atriallevel at rest or with [...] Sedation Narrator or other pertinent record in [facility] foradditional procedure and sedation information. Physician signed forprocedural medications and the patient was discharged when dischargecriteria were met. For the complete report, see the Order-Level Documents. us Kev Rice CV ECHO PROCEDURES Final R esult * ECHO STRESS 2D WITH COLOR, LIMITED DOPPLER AND CONTRAST (09/12/2024 8:44 AM CANE FEEDER) Ejection Fraction 62 [facility] CV EIMS LV [...] Region Laterality Modality Echocardiography 09/12/2024 7:30 AM CANE FEEDER Impressions 09/12/2024 9:57 AM CANE FEEDER consistent with normal left ventricular filling pressure [...] per Echocardiography Contrast Administration Protocol Reference Document [id number] Rev 11/13/2021. Patient met an inclusion criterion and did not have contraindications in screening sections. For the complete report, see the Order-Level Documents. Narrative 09/12/2024 9:57 AM CANE FEEDER For the complete report, see the Order-Level [...] administered per Echocardiography Contrast Administration ProtocolReference Document [id number] Rev 11/13/2021. Patient met an inclusioncriterion and did not have contraindications in screening sections. For the complete report, see the Order-Level Documents. Kev Rice CV ECHO PROCEDURES Final R esult * HOLTER MONITOR - IN CLINIC METAL PICKLING EQUIPMENT OPERATOR (08/30/2024 10:03 AM CANE FEEDER) Min Heart Rate 54 bpm INFOB IONIC [...] Duration 0 duration INFOBION IC MOME AF [place] 0 percent INFOBIONIC MOME Symptom Count 0 count INFOBI ONIC MOME 2024 12:3 3 PM CANE FEEDER Narrative INFOBIONIC MOME - 08/31/2024 2:10 PM CANE FEEDER 1. The basic rhythm was sinus with [...] no events noted with which to correlate. Chalk Cutter: NILTON Aguilar/ NILTON Capellan Procedure Note Jarvis [...] with no events noted with which tocorrelate. Chalk Cutter: NILTON Aguilar/ NILTON Capellan us Cal ARITA P.A.-C., M.S. CV CARDIAC S ERVICES PROCEDURES Final Result INFOBIONIC MONI NA * (TTE) 2D ECHO DOPPLER COLOR (2024 5:58 PM CANE FEEDER) Ejection Fraction 71 MC CV EIMS Proximal [...] Region Laterality Modality Echocardiography 2024 4:50 PM CANE FEEDER Impressions 2024 6:35 PM CANE FEEDER LEFT VENTRICLE:Normal left ventricular chamber size. Sigmoid [...] the Order-Level Documents. Narrative 2024 6:35 PM CANE FEEDER For the complete report, see the Order-Level [...] complete report, see the Order-Level Documents. us Cal ARITA P.A.-C., M.S. CV ECHO PROC EDURES Final Result * (ABNORMAL) Lipid Panel (2024 10:18 AM CANE FEEDER) Triglycerides 219(H) mg/dL 2024 11:32 AM CANE FEEDER DTL Comment: ----REFERENCE VALUE---- Normal: <150 mg/dL Borderline High: 150-199 mg/dL High: 200-499 mg/dL Very High: > or =500 mg/dL Cholesterol, Total 142 mg/dL 2024 11:32 AM CANE FEEDER DTL Comment: ----REFERENCE VALUE---- Desirable: < 200 mg/dL Borderline High: 200 - 239 mg/dL High: > or = 240 mg/dL Cholesterol, LDL, Calculated 62 mg/dL 2024 11:32 AM CANE FEEDER DTL Comment: ----REFERENCE VALUE---- Desirable: <100 mg/dL Above Desirable: 100-129 mg/dL Borderline High: 130-159 mg/dL High: 160-189 mg/dL Very High: >=190 mg/dL ----ADDITIONAL INFORMATION---- LDL cholesterol calculated using the Cooper/NIH equation. Cholesterol, HDL, S 44 >=40 mg/dL 2024 11:32 AM CANE FEEDER DTL Cholesterol, Non-HDL, Calculated 98 mg/dL 2024 11:32 AM CANE FEEDER DTL Comment: ----REFERENCE VALUE---- Desirable: <130 mg/dL Above Desirable: 130-159 mg/dL Borderline High: 160-189 mg/dL High: 190-219 mg/dL Very High: > or =220 mg/dL Fasting (8 HR or more) Yes 2024 10:18 AM CANE FEEDER DTL Blood (Blood, Venous) 2024 10:18 AM CANE FEEDER 2024 10:56 AM CANE FEEDER Result [facility] Cal ARITA P.A.-C., M.S. LAB BLOOD AD D-ON Final Result Performing Organization Address City/[facility] Co de Phone Number [facility] [address] [place] [address] * Thyroid Function [place] (2024 10:18 AM CANE FEEDER) Pathologist [facility] TSH, Sensitive 2.5 0.3 - 4.2 mIU/L 2024 11:32 AM CANE FEEDER DTL Blood (Blood, Venous) 2024 10:18 AM CANE FEEDER 2024 10:56 AM CANE FEEDER Result [facility] Cal ARITA P.A.-C., M.S. LAB BLOOD AD D-ON Final Result Performing Organization Address [facility] Co de Phone Number [facility] [address] [place] [address] * NT-Pro B-Type Natriuretic Peptide (BNP) (2024 10:18 AM CANE FEEDER) [facility] NT-Pro BNP <36 <=540 pg/mL 2024 11:32 AM CANE FEEDER DTL Comment: NT-proBNP values less than 300 [...] failure. Blood (Blood, Venous) 2024 10:18 AM CANE FEEDER 2024 10:56 AM CANE FEEDER us aCl ARITA P.A.-C., M.S. LAB BLOOD AD D-ON Final Result [facility] [address] [place] [address], [facility] DTL Formerly named [facility] [address] [place] [address] * (ABNORMAL) CBC with Differential, Blood (2024 10:18 AM CANE FEEDER) Hemoglobin 15.6 13.2 - 16.6 g/dL 2024 11:08 AM CANE FEEDER DTL Hematocrit 46.7 38.3 - 48.6 % 2024 11:08 AM CANE FEEDER DTL Erythrocytes 5.36 4.35 - 5.65 x10(12)/L 2024 11:08 AM CANE FEEDER DTL MCV 87.1 78.2 - 97.9 fL 2024 11:08 AM CANE FEEDER DTL RBC Distrib Width 13.2 11.8 - 14.5 % 2024 11:08 AM CANE FEEDER DTL Platelet Count 304 135 - 317 x10(9)/L 2024 11:08 AM CANE FEEDER DTL Leukocytes 9.4 3.4 - 9.6 x10(9)/L 2024 11:08 AM CANE FEEDER DTL Neutrophils 6.05 1.56 - 6.45 x10(9)/L 2024 11:08 AM CANE FEEDER DHPM Lymphocytes 2.24 0.95 - 3.07 x10(9)/L 2024 11:08 AM CANE FEEDER DTL Monocytes 0.92(H) 0.26 - 0.81 x10(9)/L 2024 11:08 AM CANE FEEDER DTL Eosinophils 0.15 0.03 - 0.48 x10(9)/L 2024 11:08 AM CANE FEEDER DTL Basophils 0.05 0.01 - 0.08 x10(9)/L 2024 11:08 AM CANE FEEDER DTL Blood (Blood, Venous) 2024 10:18 AM CANE FEEDER 2024 10:41 AM CANE FEEDER us Cal ARITA P.A.-C., M.S. LAB BLOOD AD D-ON Final Result Performing Organization Address City/[facility]/ZIP Co de Phone Number [facility] [address] [place] [address], [facility] [address] [place] [address] * Magnesium (2024 10:18 AM CANE FEEDER) Magnesium, S 1.8 1.7 - 2.3 mg/dL 2024 11:32 AM CANE FEEDER DTL Blood (Blood, Venous) 2024 10:18 AM CANE FEEDER 2024 10:56 AM CANE FEEDER Cal ARITA P.A.-C., M.S. LAB BLOOD AD D-ON Final Result Performing Organization Address City/[facility]/ZIP Co de Phone Number [facility] [address] [place] [address], [facility] [address] [place] [address] * (ABNORMAL) Comprehensive Metabolic Panel (2024 10:18 AM CANE FEEDER) Potassium, S 4.5 3.6 - 5.2 mmol/L 2024 11:32 AM CANE FEEDER DTL Sodium, S 139 135 - 145 mmol/L 2024 11:32 AM CANE FEEDER DTL Chloride, S 100 98 - 107 mmol/L 2024 11:32 AM CANE FEEDER DTL Bicarbonate, S 28 22 - 29 mmol/L 2024 11:32 AM CANE FEEDER DTL Anion Gap 11 7 - 15 2024 11:32 AM CANE FEEDER DTL BUN (Blood Urea Nitrogen), S 21 8 - 24 mg/dL 2024 11:32 AM CANE FEEDER DTL Creatinine 1.44(H) 0.74 - 1.35 mg/dL 2024 11:32 AM CANE FEEDER DTL Estimated GFR (eGFR) 54(L) >=60 mL/min/BS A 2024 11:32 AM CANE FEEDER DTL Comment: Estimated GFR calculated using the 2020 CKD_EPI creatinine equation. Calcium, Total, S 9.4 8.8 - 10.2 mg/dL 2024 11:32 AM CANE FEEDER DTL Glucose, S 167(H) 70 - 140 mg/dL 2024 11:32 AM CANE FEEDER DTL Protein, Total, S 6.7 6.3 - 7.9 g/dL 2024 11:32 AM CANE FEEDER DTL Albumin, S 4.2 3.5 - 5.0 g/dL 2024 11:32 AM CANE FEEDER DTL Aspartate Aminotransferase (AST), S 28 8 - 48 U/L 2024 11:32 AM CANE FEEDER DTL Alkaline Phosphatase, S 76 40 - 129 U/L 2024 11:32 AM CANE FEEDER DTL Alanine Aminotransferase (ALT), S 41 7 - 55 U/L 2024 11:32 AM CANE FEEDER DTL Bilirubin, Total, S 0.6 0.0 - 1.2 mg/dL 2024 11:32 AM CANE FEEDER DTL Blood (Blood, Venous) 2024 10:18 AM CANE FEEDER 2024 10:56 AM CANE FEEDER Cal ARITA, P.A.-C., M.S. LAB BLOOD AD D-ON Final Result [facility] [address] [place] [address], [facility] DTL Formerly named [facility] [address] [place] [address] * DX Chest AP or PA and Lateral 2 Views (2024 9:56 AM CANE FEEDER) Anatomical Region Laterality Modality Chest, Thoracic RST LOS, Tho racic ARZ LOS, Thoracic FLA LOS N/A Digital Radiography Impressions 2024 10:37 AM CANE FEEDER No significant change since 02/06/2019. Tortuous, mildly calcified aorta with mild prominence of the ascending aorta. Mild scarring left lung base. Chest is otherwise negative. Narrative 2024 10:37 AM CANE FEEDER EXAM: DX CHEST AP OR PA AND LATERAL 2 VIEWS Procedure Note Kenneth Bowling M.D. - 2024 EXAM: DX CHEST AP OR PA AND LATERAL 2 VIEWS IMPRESSION: No significant change since 02/06/2019. Tortuous, mildly calcified aortawith mild prominence of the ascending aorta. Mild scarring left lung base.Chest is otherwise negative. Cal ARITA P.A.-C., M.S. IMG DIAGNOST IC IMAGING PROCEDURES Final Result * ECG 12 Lead (2024 9:41 AM CANE FEEDER) Ventricular Rate ECG/Min 79 BPM MUSE AR Interval 198 ms MUSE QRSD Interval 104 ms MUSE QT Interval 360 ms MUSE QTC Interval 412 ms MUSE P [place] 45 degrees MUSE R [place] -16 degrees MUSE T Wave [place] 49 degrees MUSE 2024 9:41 AM CANE FEEDER 2024 9:52 AM CANE FEEDER Impressions MUSE - 2024 9:52 AM CANE FEEDER Normal sinus rhythm Normal ECG When compared with ECG of 31-Dec-2022 15:06, No significant change was found Reviewed by NILTON Albright Narrative Procedure Note Gerardo Duncan Jr., M.D. - 2024 IMPRESSION: Normal sinus rhythm Normal ECG When compared with ECG of 31-Dec-2022 15:06, No significant change was found Reviewed by NILTON Albright Cal ARITA P.A.-C., M.S. 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
--- OUTSIDE RECORDS SUMMARY | 2024-09-26 08:04 | XMS_ITS | Encounter Summary ---
Author Organization [facility] Address [address] [place] [address] Care Team Providers Care Nurse Staff Industrial Name Role Phone Unavailable Primary Care Provider Unavailabl e Reason for Referral * Cardiovascular-Diagnostic (Routine) - Closed Specialty Diagnoses / Procedures Referred By Contac t Referred To Contact Diagnoses Dizziness Palpitations Shortness Of Breath Procedures Echo Transthoracic (TTE) Cal Ren MPAS, P.A.-C., M.S. [address] [place] [phone] Phone: tel: fax: [facility] Referral ID Status Reason Start Date Expiration Date Visits Re quested Visits Authorized [id number] Closed 08/22/2024 11/22/2025 1 1 LACER Reason for Visit * Cardiovascular-Diagnostic (Routine) - Closed Specialty Diagnoses / Procedures Referred By Contac t Referred To Contact Diagnoses Dizziness Palpitations Shortness Of Breath Procedures Echo Transthoracic (TTE) Cal Ren MPAS, P.A.-C., M.S. [address] [place] [phone] Phone: tel: fax: [facility] Referral ID Status Reason Start Date Expiration Date Visits Re quested Visits Authorized [id number] Closed 08/22/2024 11/22/2025 1 1 Encounter Details Date Type Department Care Team (Latest Contact Info) Description 2024 3:33 PM CARD LACER - 2024 11:59 PM CARD LACER Hospital Encounter Department of Cardiovascular Diseases in [place], [place] [address] [place] [address] Cal Ren MPAS, P.A.-C., M.S. [address] [place] [address] Dizziness; Palpitations; Shortness Of Breath Discharge Disposition: [...] AM CDT Legal Sex Male 9:28 AM CARD LACER Gender Identity Male 12/30/2022 7:11 AM CDT Sexual Orientation Straight 12/30/2022 7: 11 AM CDT documented as of this encounter Last Filed Vital Signs Vital Sign Reading Time Taken Comments Blood Pressure - - Pulse - - Temperature - - Respiratory Rate - - Oxygen Saturation - - Inhaled Oxygen Concentration - - Weight 92 kg (202 lb 13.2 oz) 2024 6:12 PM CARD LACER Height 163 cm (5' 4.17) 2024 6:12 PM CARD LACER Body Mass Index 34.63 2024 6:12 PM CARD LACER documented in this encounter Medications at Time [...] tablet Take by mouth daily. 05/17/2009 omega 5-sag-lmn-fish oil (FISH OIL) 1,000 mg (120 mg-180 [...] Procedure Name Priority Date/Time Associated Diagnosis Comments (TTE) 2D ECHO DOPPLER COLOR Routine 2024 5:58 PM CARD LACER Dizziness Palpitations Shortness Of Breath documented in this encounter Results * (TTE) 2D ECHO DOPPLER COLOR (2024 5:58 PM CARD LACER) Ejection Fraction 71 MC CV EIMS Proximal [...] Region Laterality Modality Echocardiography 2024 4:50 PM CARD LACER Impressions 2024 6:35 PM CARD LACER LEFT VENTRICLE:Normal left ventricular chamber size. Sigmoid [...] the Order-Level Documents. Narrative 2024 6:35 PM CARD LACER For the complete report, see the Order-Level [...] report, see the Order-Level Documents. Cal ARITA PEdison., M.S. CV ECHO PROC EDURES Final Result documented in this encounter Visit Diagnoses Diagnosis Dizziness Palpitations Shortness Of Breath documented in this encounter
--- OUTSIDE RECORDS SUMMARY | 2024-09-26 08:04 | XMS_ITS | Encounter Summary ---
Author Organization [facility] Address [address] [place] [address] Care Team Providers Care Property Worker Name Role Phone Unavailable Primary Care Provider Unavailabl e Reason for Referral * Outpatient (Routine) - Authorized Specialty Diagnoses / Procedures Referred By Contac t Referred To Contact Diagnoses Dizziness Palpitations Shortness Of Breath Procedures ECG Heart rhythm monitor (Holter) Cal Ren MPAS, P.A.-C., M.S. [address] [place] [phone] Phone: tel: fax: [facility] Referral ID Status Reason Start Date Expiration Date V isits Requested Visits Authorized [id number] Authorized 08/22/2024 11/22/2025 1 1 ERINE PLANT OPERATOR Reason for Visit * Outpatient (Routine) - Authorized Specialty Diagnoses / Procedures Referred By Contac t Referred To Contact Diagnoses Dizziness Palpitations Shortness Of Breath Procedures ECG Heart rhythm monitor (Holter) Cal Ren MPAS, P.A.-C., M.S. [address] [place] [phone] Phone: tel: fax: [facility] Referral ID Status Reason Start Date Expiration Date V isits Requested Visits Authorized [id number] Authorized 08/22/2024 11/22/2025 1 1 Encounter Details Date Type Department Care Team (Latest Contact Info) Description 2024 12:28 PM GLYCERINE PLANT OPERATOR - 2024 3:32 PM GLYCERINE PLANT OPERATOR Hospital Encounter Department of Cardiovascular Diseases in [place], [place] [address] [place] [address] Cal Ren MPAS, P.A.-C., M.S. [address] [place] [address] Dizziness; Palpitations; Shortness Of Breath Discharge Disposition: [...] AM CDT Legal Sex Male 9:28 AM GLYCERINE PLANT OPERATOR Gender Identity Male 12/30/2022 7:11 AM [...] tablet Take by mouth daily. 05/17/2009 omega 5-jjf-vgb-fish oil (FISH OIL) 1,000 mg (120 mg-180 [...] Procedure Name Priority Date/Time Associated Diagnosis Comments HOLTER MONITOR - IN CLINIC CONSTRUCTION SCHEDULER Routine 08/30/2024 10:03 AM GLYCERINE PLANT OPERATOR Dizziness Palpitations Shortness Of Breath documented in this encounter Results * HOLTER MONITOR - IN CLINIC CONSTRUCTION SCHEDULER (08/30/2024 10:03 AM GLYCERINE PLANT OPERATOR) Min Heart Rate 54 bpm INFOB IONIC [...] Duration 0 duration INFOBION IC MOME AF [place] 0 percent INFOBIONIC MOME Symptom Count 0 count INFOBI ONIC MOME 2024 12:3 3 PM GLYCERINE PLANT OPERATOR Narrative INFOBIONIC MOME - 08/31/2024 2:10 PM GLYCERINE PLANT OPERATOR 1. The basic rhythm was sinus with [...] no events noted with which to correlate. Monitoring Coordinator: NILTON Aguilar/ NILTON Capellan Procedure Note Jarvis [...] with no events noted with which tocorrelate. Monitoring Coordinator: NILTON Aguilar/ NILTON Capellan Cal ARITA PTyshawn.-C., M.S. CV CARDIAC S ERVICES PROCEDURES Final Result INFOBIONIC MONI NA documented in this encounter Visit Diagnoses Diagnosis Dizziness Palpitations Shortness Of Breath documented in this encounter
--- NOTE | 2024-09-26 08:08 | ED.GENADULT ---
HPI - General Adult General Date Seen: 09/26/24 Chief complaint: Urogenital Problems, Male Stated complaint: Testicular pain radiating into abdomen Time Seen by Provider: 09/26/24 08:05 History of Present Illness HPI narrative: 64-year-old male with a history of hypertension, dyslipidemia, chronic kidney disease not on dialysis, Related Data Home Medications ?Medication ?Instructions ?Recorded ?Confirmed aspirin 81 mg tablet,delayed 81 mg PO DAILY 09/26/24 09/26/24 release (Adult Low Dose Aspirin) ezetimibe 10 mg tablet 10 mg PO DAILY 09/26/24 09/26/24 hydrochlorothiazide 12.5 mg tablet 12.5 mg PO DAILY 09/26/24 09/26/24 lisinopril 5 mg tablet 5 mg PO DAILY 09/26/24 09/26/24 omeprazole 20 mg capsule,delayed 20 mg PO DAILY 09/26/24 09/26/24 release rosuvastatin 40 mg tablet 40 mg PO QPM 09/26/24 09/26/24 Previous Rx's ?Medication ?Instructions ?Recorded ibuprofen 600 mg tablet 600 mg PO Q8H PRN #20 tabs 09/26/24 Allergies Allergy/AdvReac Type Severity Reaction Status Date / Time atenolol Allergy Intermediate Verified 09/26/24 08:05 morphine Allergy Intermediate Verified 09/26/24 08:05 Exam Narrative: Exam Narrative: Constitutional: Appears well-developed and well-nourished. Alert. Conversant. Endorses some pain in his left testicle and left lower quadrant but declines pain medications Non toxic. HENT: Head: Atraumatic. Nose: Nose normal. Mouth/Throat: Oral mucosa is clear and moist. no trismus. Eyes: Conjunctivae normal. EOM normal. Pupils equal, round, and reactive to light. No scleral icterus. Neck: Normal range of motion. Neck supple. No tracheal deviation present. Cardiovascular: Normal rate, regular rhythm. No gallop. No friction rub. No murmur heard. Symmetric radial artery pulses Pulmonary/Chest: Effort normal. No stridor. No respiratory distress. No wheezes. No rales. No rhonchi . No tenderness. Abdominal: Soft. Bowel sounds normal. No distension. No mass. Left lower quad tenderness. No rebound. No guarding. No CVA tenderness. No right lower quadrant. No mass : No inguinal masses. No palpable hernias. Normal circumcised penis. Scrotal is normal. Mildly tender over the left testicle without swelling. Left testicle does ride a little bit higher in the scrotum on the right testicle. Intact cremasteric reflexes. I do not appreciate any specific epididymal tenderness. No scrotal swelling Musculoskeletal: RUE: Normal range of motion. No tenderness. No deformity LUE: Normal range of motion. No tenderness. No deformity RLE: Normal range of motion. No edema. No tenderness. No deformity LLE: Normal range of motion. No edema. No tenderness. No deformity Lymph: No inguinal adenopathy. Neurological: Alert and oriented to person, place, and time. Normal strength. CN II-VII intact. No sensory deficit. GCS eye subscore is 4. GCS verbal subscore is 5. GCS motor subscore is 6. Normal coordination Skin: Skin is warm and dry. No rash noted. No pallor. Normal capillary refill. Psychiatric: Normal mood. Normal affect. Const: Vital Signs, click to edit/add: Vital Signs - 24 hr 09/26/24 08:03 09/26/24 13:27 Temperature 97.0 F L Pulse Rate 63 Pulse Rate [Pulse Oximeter] 61 Respiratory Rate 16 16 Blood Pressure 128/86 Blood Pressure [Ri ght Upper Arm] 145/82 H Pulse Oximetry 96 97 Oxygen Delivery Me thod Room Air Room Air Course Vital Signs Vital signs: Initial Vital Signs Temperature 97.0 F L 09/26/24 08:03 Temperature Source Temporal Artery Scan 09/26/24 08:03 Pulse Rate 61 09/26/24 08:03 Respiratory Rate 16 09/26/24 08:03 Blood Pressure 145/82 H 09/26/24 08:03 Blood Pressure Mean 103 09/26/24 08:03 Blood Pressure Position Sitting 09/26/24 08:03 Pulse Oximetry 96 09/26/24 08:03 Oxygen Delivery Method Room Air 09/26/24 08:03 Vital Signs Temperature 97.0 F L 09/26/24 08:03 Pulse Rate 61 09/26/24 08:03 Respiratory Rate 16 09/26/24 08:03 Blood Pressure 145/82 H 09/26/24 08:03 Pulse Oximetry 96 09/26/24 08:03 Oxygen Delivery Method Room Air 09/26/24 08:03 Temperature 97.0 F L 09/26/24 08:03 Pulse Rate 63 09/26/24 13:27 Respiratory Rate 16 09/26/24 13:27 Blood Pressure 128/86 09/26/24 13:27 Pulse Oximetry 97 09/26/24 13:27 Oxygen Delivery Method Room Air 09/26/24 13:27 Medical Decision Making MDM Narrative Medical decision making narrative: Very pleasant 64-year-old male presenting to the ER today with pain in his left testicle radiating up to the left lower quadrant his abdomen, but not to his left flank. Differential his broad including kidney stone (has history of 1 previous stone, but during that episode pain was more intense than currently pain and was more in the abdomen and flank rather than in the testicle and abdomen), AAA, UTI, pyelonephritis, inguinal hernia, testicular pathology such as torsion, orchitis, epididymitis, musculoskeletal pain, diverticulitis, colitis. Exam reveals no evidence for any scrotal infection, Yvonne's gangrene, or inguinal adenopathy Initially plan was to get scrotal ultrasound and if normal follow with CT. However patient wanted to avoid double imaging, if possible. Therefore we decided to get urinalysis and if hematuria present, start with CT imaging. Urinalysis was abnormal for hematuria but no pyuria, bacteria or other signs of UTI. Hematuria prompted stone protocol CT which was ultimately normal. No evidence for any obstructing stones or hydronephrosis. No other abnormality on the CT such as abdominal aortic aneurysm that, colitis, diverticulitis, obstruction, perforation. Laboratory workup is reassuring Scrotal ultrasound was obtained and does show potential abnormalities in the epididymis suggesting possible mild left epididymitis. Patient is comfortable and hemodynamically stable here in the ER and has been declining pain medications offered throughout. At this point he is safe for outpatient management. Will start him on a course of ibuprofen to treat for possible epididymitis. No evidence for infection at this time so will hold off on antibiotics unless urine culture grows pathogen. He does have chronic renal insufficiency so would only safely tolerate a short course of NSAIDs. Recommend close outpatient follow-up with PCP for recheck if not improving and/or return to the ER if he has worsening. Also recheck with PCP within the next couple of weeks to repeat urine sample to make sure that the hematuria is resolved Need for follow-up and precautions for return to the ER reviewed in detail with the patient and his . Lab Data Labs: Lab Results 09/26/24 09/26/24 Range/Units 08:31 08:45 WBC 6.47 (4.50-11.00) K/uL RBC 5.01 (4.30-5.90) m/uL Hgb 14.5 (13.5-17.5) gm/dL Hct 43.8 (37.0-53.0) % MCV 87 (80-100) fL MCH 29 (26-34) pg MCHC 33 (32-36) gm/dL RDW Coeff of Christy 12.8 (11.5-15.5) % Plt Count 276 (140-440) K/uL Neut % (Auto) 65.2 (42.0-72.0) % Lymph % (Auto) 22.4 (20-44) % [place] % (Auto) 9.7 (0.0-11.0) % Eos % (Auto) 2.0 (0.0-7.0) % Baso % (Auto) 0.5 (0.0-3.0) % Neut # (Auto) 4.22 (1.7-7.0) K/uL Lymph # (Auto) 1.45 (0.90-2.90) K/uL [place] # (Auto) 0.60 (0.00-0.90) K/UL Eos # (Auto) 0.13 (0.00-0.50) K/uL Baso # (Auto) 0.03 (0.00-0.30) K/uL Abs Immat Gran (auto) 0.01 (0.00-0.30) K/uL Imm/Tot Granulo (auto) 0.2 % Sodium 136 (135-149) mmol/L Potassium 4.3 (3.6-5.1) mmol/L Chloride 101 (96-114) mmol/L Carbon Dioxide 30 (20-32) mmol/L Anion Gap 5 L (7-15) mEq/L BUN 19 (7-30) mg/dL Creatinine 1.3 (0.5-1.5) mg/dL Estimated Creat Clear 46.80 Estimated GFR 61 ml/min Glucose 124 H (60-115) mg/dL Lactate 0.7 (0.5-1.9) mmol/L Calcium 9.0 (8.4-10.6) mg/dL Urine Color Yellow (Yellow) Urine Appearance Clear (Clear) Urine pH 6.0 (5.0-8.5) Ur Specific [place] <= 1.005 (1.000-1.030) Urine Protein Negative (Negative) Urine Glucose (UA) Negative (Negative) Urine Ketones Negative (Negative) Urine Blood Trace-intact A (Negative) Urine Nitrite Negative (Negative) Urine Bilirubin Negative (Negative) Urine Urobilinogen 0.2 (0.2-1.0) Ur Leukocyte Esterase Negative (Negative) Urine RBC 5-10 A (0-2) Urine WBC 0-2 (0-5) Ur Squamous Epith Cells None (None-Few) Urine Bacteria None (None) Imaging Data CT scan - abdomen: Attestation: I have reviewed the pertinent imaging results. Radiologist's impression: IMPRESSION: 1. No evidence of nephrolithiasis or hydronephrosis. No definite findings to explain the patient`s hematuria for the noncontrast technique. 2. Colonic diverticulosis without CT evidence of diverticulitis. Moderate to large amount of stool within the colon. US scrotum: Attestation: I have reviewed the pertinent imaging results. Radiologist's impression: Impression: 1. Normal bilateral testicular blood flow. 2. No abnormal blood flow within the epididymi although mild inhomogeneity is noted on the left without a discrete lesion. This is nonspecific but could represent mild epididymitis. Discharge Plan Discharge Clinical Impression: Acute epididymitis, Hematuria Patient Disposition: Home, Self-Care Condition: Stable Instructions: Epididymitis (ED), Hematuria (ED) Additional Instructions: As we discussed, please come back to the ER right away if you have worsening pain, or new symptoms such as fever, bloody urine, vomiting, or any problems. We suspect you have epididymitis. We can treat this with nonsteroidal anti-inflammatories. You can take ibuprofen 600 mg per dose 3 times daily for the next few days and that should help your symptoms get better. If you get worse, please come back to the ER right away Your urine sample today shows a tiny amount of blood in your urine. It is very important for you to recheck with her doctor within the next 1-3 weeks to have a repeat urine sample. If you have blood in your urine after the epididymitis is better, your doctor may need to refer you to a urologist Prescriptions: New ibuprofen 600 mg tablet 600 mg PO Q8H PRNQty: 20 0RF No Action omeprazole 20 mg capsule,delayed release(DR/EC) 20 mg PO DAILY lisinopril 5 mg tablet 5 mg PO DAILY ezetimibe 10 mg tablet 10 mg PO DAILY rosuvastatin 40 mg tablet 40 mg PO QPM hydrochlorothiazide 12.5 mg tablet 12.5 mg PO DAILY aspirin [Adult Low Dose Aspirin] 81 mg tablet,delayed release (DR/EC) 81 mg PO DAILY Follow Up/Referrals: Kilo Franklin MD [Primary Care Provider] - Stand Alone Forms: [employer] Info Instructions
--- OUTSIDE RECORDS SUMMARY | 2024-09-26 08:31 | XMS_ITS | Encounter Summary ---
Author Organization [facility] Address [address] [place] [address] Care Team Providers Care Real Estate Rental Agent Name Role Phone Unavailable Primary Care Provider Unavailabl e Reason for Referral * Cardiovascular-Diagnostic (Routine) - Closed Specialty Diagnoses / Procedures Referred By Contac t Referred To Contact Diagnoses Acquired Aortic Valve Disorder Procedures Echo Transesophageal (LEOBARDO) Kev Buchanan M.B.B.S. [address] [place] [address] Phone: tel: fax: [facility] Referral ID Status Reason Start Date Expiration Date Visits Re quested Visits Authorized [id number] Closed 09/12/2024 12/13/2025 1 1 CTURAL FITTER Encounter Details Date Type Department Care Team (Latest Contact Info) Description 09/12/2024 Results Follow-Up RST CVD Kev Buchanan M.B.B.S. [address] [place] [phone] Echo Stress Social History Tobacco Use Types [...] your living situation today? I have a [facility] place to live 09/06/2024 Sex and Gender Information Value Date Recorded Sex Assigned at Male 12/30/2022 7:10 AM CDT Legal Sex Male 9:28 AM STRUCTURAL FITTER Gender Identity Male 12/30/2022 7:11 AM CDT Sexual Orientation Straight 12/30/2022 7: 11 AM CDT documented as of this encounter Miscellaneous Notes * Result Encounter Note - Kev Buchanan M.B.BLuis ArmandoS. - 09/12/2024 1:02 PM STRUCTURAL FITTER Discuss stress echocardiogram findings with And Mrs. [...] his insurance permits versus initiation of metformin. CTURAL FITTER documented in this encounter Plan of Treatment Not on file documented as of this encounter Results * (LEOBARDO) 2D WITH COLOR, LIMITED DOPPLER AND CONTRAST (09/21/2024 11:32 AM STRUCTURAL FITTER) [facility] Signature Ejection Fraction 65 [facility] Mallampati As documented in the RN pre-procedure assessment [facility] ASA Class II [facility] Echo H and P 09/21/2024 11:01 [facility] Anatomical Region Laterality Modality Echocardiography 09/21/2024 10:0 5 AM STRUCTURAL FITTER Impressions 09/21/2024 1:09 PM STRUCTURAL FITTER PRE-SEDATION ASSESSMENT & CONSENT (performed immediately prior [...] documented in the medical record and the cold mill inspector. The physician independently performed a pertinent examination [...] performed at the request of the primary business services sales agent. Transesophageal echocardiogram performed by the physician carpet or rug layer helper(s), as listed in this report. Adult probe [...] causing suboptimal opacification of interatrial septum. No [id number] shunt at atrial level at rest or [...] Sedation Narrator or other pertinent record in [facility] for additional procedure and sedation information. Physician signed for procedural medications and the patient was discharged when discharge criteria were met. For the complete report, see the Order-Level Documents. Narrative 09/21/2024 1:09 PM STRUCTURAL FITTER For the complete report, see the Order-Level [...] as documented inthe medical record and the cold mill inspector. The physician independentlyperformed a pertinent examination including [...] performed at the request of the primaryservice science consultant. Transesophageal echocardiogram performed by [facility] carpet or rug layer helper(s), as listed in this report. Adult probeinserted [...] atrium, causing suboptimalopacification of interatrial septum. No ycyjz-vo-qezi shunt at atriallevel at rest or with [...] Sedation Narrator or other pertinent record in [facility] foradditional procedure and sedation information. Physician signed forprocedural medications and the patient was discharged when dischargecriteria were met. For the complete report, see the Order-Level Documents. us Kev Rice CV ECHO PROCEDURES Final R esult documented in this encounter Visit Diagnoses Diagnosis Acquired Aortic Valve Disorder- Primary Acquired Aortic Valve Disorder documented in this encounter
--- OUTSIDE RECORDS SUMMARY | 2024-09-26 08:31 | XMS_ITS | Encounter Summary ---
Author Organization [facility] Address [address] [place] [address] Care Team Providers Care Motor Room Controller Name Role Phone Unavailable Primary Care Provider Unavailabl e Reason for Referral * Cardiovascular-Diagnostic (Routine) - Closed Specialty Diagnoses / Procedures Referred By Contac t Referred To Contact Diagnoses Acquired Aortic Valve Disorder Procedures Echo Transesophageal (LEOBARDO) Kev Buchanan M.B.B.S. [address] [place] [address] Phone: tel: fax: [facility] Referral ID Status Reason Start Date Expiration Date Visits Re quested Visits Authorized [id number] Closed 09/12/2024 12/13/2025 1 1 BODY DETAILER Reason for Visit * Cardiovascular-Diagnostic (Routine) - Closed Specialty Diagnoses / Procedures Referred By Contac t Referred To Contact Diagnoses Acquired Aortic Valve Disorder Procedures Echo Transesophageal (LEOBARDO) Kev Buchanan M.B.B.S. [address] [place] [address] Phone: tel: fax: [facility] Referral ID Status Reason Start Date Expiration Date Visits Re quested Visits Authorized [id number] Closed 09/12/2024 12/13/2025 1 1 Encounter Details Date Type Department Care Team (Latest Contact Info) Description 09/21/2024 9:58 AM AUTO BODY DETAILER - 09/21/2024 11:59 PM AUTO BODY DETAILER Hospital Encounter Department of Cardiovascular Diseases in [place], [place] [address] [place] [address] Kev Buchanan M.B.B.S. [address] [place] [address] Acquired Aortic Valve Disorder Discharge Disposition: Home or Self Care Social History Tobacco Use Types Packs/Day Years Used Date Smoking Tobacco: Never Smokeless Tobacco: Never Alcohol Use Standard Drinks/Week Comments Yes 1 (1 standard drink = 0.6 oz pur e alcohol) 1-2 drinks/week [facility] Utilities Answer Date Recorded In the [...] your living situation today? I have a [facility] place to live 09/06/2024 Sex and Gender Information Value Date Recorded Sex Assigned at Male 12/30/2022 7:10 AM CDT Legal Sex Male 9:28 AM AUTO BODY DETAILER Gender Identity Male 12/30/2022 7:11 AM CDT Sexual Orientation Straight 12/30/2022 7: 11 AM CDT documented as of this encounter Last Filed Vital Signs Vital Sign Reading Time Taken Comments Blood Pressure 113/79 09/21/2024 11:42 AM AUTO BODY DETAILER Pulse 61 09/21/2024 11:39 AM AUTO BODY DETAILER Temperature - - Respiratory Rate 17 09/21/2024 11:39 AM AUTO BODY DETAILER Oxygen Saturation 96% 09/21/2024 11:39 AM AUTO BODY DETAILER Inhaled Oxygen Concentration - - Weight - [...] tablet Take by mouth daily. 05/17/2009 omega 8-cob-jxh-fish oil (FISH OIL) 1,000 mg (120 mg-180 [...] DOPPLER AND CONTRAST Routine 09/21/2024 11:32 AM AUTO BODY DETAILER Acquired Aortic Valve Disorder documented in this encounter Results * (LEOBARDO) 2D WITH COLOR, LIMITED DOPPLER AND CONTRAST (09/21/2024 11:32 AM AUTO BODY DETAILER) Ejection Fraction 65 [facility] Mallampati As documented in the RN pre-procedure assessment [facility] ASA Class II [facility] Echo H and P 09/21/2024 11:01 [facility] Anatomical Region Laterality Modality Echocardiography 09/21/2024 10:0 5 AM AUTO BODY DETAILER Impressions 09/21/2024 1:09 PM AUTO BODY DETAILER PRE-SEDATION ASSESSMENT & CONSENT (performed immediately prior [...] documented in the medical record and the rice milling supervisor. The physician independently performed a pertinent examination [...] performed at the request of the primary marketing services manager. Transesophageal echocardiogram performed by the physician hands assembler(s), as listed in this report. Adult [...] causing suboptimal opacification of interatrial septum. No mkvbc-fd-buzl shunt at atrial level at rest or [...] Sedation Narrator or other pertinent record in [facility] for additional procedure and sedation information. Physician signed for procedural medications and the patient was discharged when discharge criteria were met. For the complete report, see the Order-Level Documents. Narrative 09/21/2024 1:09 PM AUTO BODY DETAILER For the complete report, see the Order-Level [...] as documented inthe medical record and the rice milling supervisor. The physician independentlyperformed a pertinent examination including [...] performed at the request of the primaryservice wireless sales consultant. Transesophageal echocardiogram performed by [facility] hands assembler(s), as listed in this report. Adult [...] atrium, causing suboptimalopacification of interatrial septum. No fytky-yc-gdom shunt at atriallevel at rest or with [...] 1102, Intraprocedure (CV) Given 09/21/2024 11:02 AM AUTO BODY DETAILER 50 mcg lidocaine 5 % ointment 1 [...] g of ointment/day Given 09/21/2024 10:44 AM AUTO BODY DETAILER 1 Application midazolam (PF) injection (Versed) As needed, Starting on Mago 09/21/24 at 1102, Intraprocedure (CV) Given 09/21/2024 11:02 AM AUTO BODY DETAILER 2 mg NaCl 0.9% bacteriostatic 0.9 % injection 30 mL 30 mL, intravenous, Once in imaging, for agitated saline (bubble) studies, Starting on Mago 09/21/24 at 1010, For 1 dose, Intraprocedure - Diagnostic, See Katie. Given 09/21/2024 11:25 AM AUTO BODY DETAILER 30 mL sodium chloride 0.9 % injection 10 mL 10 mL, intravenous, Once in imaging, line care, Starting on Mago 09/21/24 at 1010, For 1 dose, Prior to and following infusion and between multiple consecutive infusions: sodium chloride 0.9 % injection Given 09/21/2024 10:44 AM AUTO BODY DETAILER 10 mL documented in this encounter
--- OUTSIDE RECORDS SUMMARY | 2024-09-26 08:31 | XMS_ITS | Encounter Summary ---
Author Organization [facility] Address [address] [place] [address] Care Team Providers Care Medical Claims Processor Name Role Phone Unavailable Primary Care Provider Unavailabl e Encounter Details Date Type Department Care Team (Late st Contact Info) Description 09/21/2024 Results Follow-Up RST CVD Kev Buchanan M.B.B.S. [address] [place] [id number] Echo Transesophageal (LEOBARDO) Social History Tobacco Use Types Packs/Day Years Used Date Smoking Tobacco: Never Smokeless Tobacco: Never Alcohol Use Standard Drinks/Week Comments Yes 1 (1 standard drink = 0.6 oz pur e alcohol) 1-2 drinks/week [facility] Utilities Answer Date Recorded In the past 12 months has [employer], gas, oil, or water [employer] threatened to shut off services in your [...] your living situation today? I have a [facility] place to live 09/06/2024 Sex and Gender Information Value Date Recorded Sex Assigned at Male 12/30/2022 7:10 AM CDT Legal Sex Male 9:28 AM FISHER TRAWL NET Gender Identity Male 12/30/2022 7:11 AM CDT Sexual Orientation Straight 12/30/2022 7: 11 AM CDT documented as of this encounter Miscellaneous Notes * Result Encounter Note - Kev Buchanan M.B.B.S. - 09/21/2024 1:36 PM FISHER TRAWL NET Discussed normal findings on transesophageal echocardiogram. Sclerotic aortic valve with small strands consistent with age. Discussed no further testing required from a cardiac standpoint. Mr. Negrete advised to reach back if has continued symptoms of dizziness at which point neurology/ ENT referral can be considered. ER TRAWL NET documented in this encounter Plan of Treatment Not on file documented as of this encounter Visit Diagnoses Not on filedocumented in this encounter
--- OUTSIDE RECORDS SUMMARY | 2024-09-26 08:31 | XMS_ITS | Encounter Summary ---
Author Organization [facility] Address [address] [place] [address] Care Team Providers Care Vegetable Picker Name Role Phone Unavailable Primary Care Provider Unavailabl e Reason for Referral * Cardiovascular-Diagnostic (Routine) - Closed Specialty Diagnoses / Procedures Referred By Contac t Referred To Contact Diagnoses Dizziness Procedures Echo Stress Kev Buchanan M.B.B.S. [address] [place] [address] Phone: tel: fax: [facility] Referral ID Status Reason Start Date Expiration Date Visits Re quested Visits Authorized [id number] Closed 09/11/2024 12/12/2025 1 1 L SPINNER Reason for Visit * Cardiovascular-Diagnostic (Routine) - Closed Specialty Diagnoses / Procedures Referred By Contac t Referred To Contact Diagnoses Dizziness Procedures Echo Stress Kev Buchanan M.B.B.S. [address] [place] [address] Phone: tel: fax: [facility] Referral ID Status Reason Start Date Expiration Date Visits Re quested Visits Authorized [id number] Closed 09/11/2024 12/12/2025 1 1 Encounter Details Date Type Department Care Team (Latest Contact Info) Description 09/12/2024 7:13 AM METAL SPINNER - 09/12/2024 11:59 PM METAL SPINNER Hospital Encounter Department of Cardiovascular Diseases in [place], [place] [address] [place] [address] Kev Buchanan M.B.BLuis ArmandoS. [address] [place] [address] Dizziness Discharge Disposition: Home or Self Care Social History Tobacco Use Types Packs/Day Years Used Date Smoking Tobacco: Never Smokeless Tobacco: Never Alcohol Use Standard Drinks/Week Comments Yes 1 (1 standard drink = 0.6 oz pur e alcohol) 1-2 drinks/week [facility] Utilities Answer Date Recorded In the [...] your living situation today? I have a [facility] place to live 09/06/2024 Sex and Gender Information Value Date Recorded Sex Assigned at Male 12/30/2022 7:10 AM CDT Legal Sex Male 9:28 AM METAL SPINNER Gender Identity Male 12/30/2022 7:11 AM CDT [...] tablet Take by mouth daily. 05/17/2009 omega 4-mfw-awc-fish oil (FISH OIL) 1,000 mg (120 mg-180 [...] DOPPLER AND CONTRAST Routine 09/12/2024 8:44 AM METAL SPINNER Dizziness documented in this encounter Results * ECHO STRESS 2D WITH COLOR, LIMITED DOPPLER AND CONTRAST (09/12/2024 8:44 AM METAL SPINNER) Ejection Fraction 62 [facility] CV EIMS LV [...] Region Laterality Modality Echocardiography 09/12/2024 7:30 AM METAL SPINNER Impressions 09/12/2024 9:57 AM METAL SPINNER consistent with normal left ventricular filling pressure [...] per Echocardiography Contrast Administration Protocol Reference Document [id number] Rev 11/13/2021. Patient met an inclusion criterion and did not have contraindications in screening sections. For the complete report, see the Order-Level Documents. Narrative 09/12/2024 9:57 AM METAL SPINNER For the complete report, see the Order-Level [...] administered per Echocardiography Contrast Administration ProtocolReference Document [id number] Rev 11/13/2021. Patient met an inclusioncriterion and [...] Diagnostic, See protocol. Given 09/12/2024 8:43 AM METAL SPINNER 1 mL sodium chloride 0.9 % injection 10 mL 10 mL, intravenous, As needed, line care, Starting on Wed09/12/24 at 0843, Intraprocedure - Diagnostic, Prior to and following infusion and between multiple consecutive infusions: sodium chloride 0.9 % injection Given 09/12/2024 8:43 AM METAL SPINNER 10 mL documented in this encounter
--- OUTSIDE RECORDS SUMMARY | 2024-09-26 08:31 | XMS_ITS | Encounter Summary ---
Author Organization [facility] Address [address] [place] [address] Care Team Providers Care Mixing Machine Attendant Name Role Phone Unavailable Primary Care Provider Unavailabl e Reason for Referral * Outpatient (Routine) - Authorized Specialty Diagnoses / Procedures Referred By Contac t Referred To Contact Cardiovascular Disease Kev Buchanan M.B.B.S. [address] [place] [address] Phone: tel: fax: [facility] Referral ID Status Reason Start Date Expiration Date V isits Requested Visits Authorized [id number] Authorized 09/11/2024 03/13/2026 1 1 L COMPANY REFRIGERATED TRUCK DRIVER * Cardiovascular-Diagnostic (Routine) - Closed Specialty Diagnoses / Procedures Referred By Contac t Referred To Contact Diagnoses Dizziness Procedures Echo Stress Kev Buchanan M.B.B.S. [address] [place] [address] Phone: tel: fax: [facility] Referral ID Status Reason Start Date Expiration Date Visits Re quested Visits Authorized [id number] Closed 09/11/2024 12/12/2025 1 1 L COMPANY REFRIGERATED TRUCK DRIVER Reason for Visit * Appointment Request (Routine) - Closed Specialty Diagnoses / Procedures Referred By Hyacinth t Referred To Contact Cardiovascular Disease Diagnoses Lightheadedness Fatigue Referral ID Status Reason Start Date Expiration Date Visits Re quested Visits Authorized [id number] Closed 08/21/2024 11/21/2025 1 1 Encounter Details Date Type Department Care Team (Latest Contact Info) Description 09/11/2024 1:15 PM LOCAL COMPANY REFRIGERATED TRUCK DRIVER Comprehensive Visit Department of Cardiovascular Medicine in [place], [place] [address] [place] [address] Kev Buchanan M.B.BLuis ArmandoS. [address] [place] [address] Dizziness (Primary Dx); Diabetes Mellitus Type 2 (HCC); Hypertension Essential Primary; Hyperlipidemia On Treatment; Beat Premature Ventricular; Atrial Premature Depolarization; Family History Cardiovascular Disease Social History Tobacco Use Types Packs/Day Years Used Date Smoking Tobacco: Never Smokeless Tobacco: Never Tobacco Cessation:Counseling Given: Not Answered Alcohol Use Standard Drinks/Week Comments Yes 1 (1 standard drink = 0.6 oz pur e alcohol) 1-2 drinks/week [facility] Utilities Answer Date Recorded In the past 12 months has th e [employer], gas, oil, or water [employer] threatened to shut off services in your [...] your living situation today? I have a [facility] place to live 09/06/2024 Sex and Gender Information Value Date Recorded Sex Assigned at Male 12/30/2022 7:10 AM CDT Legal Sex Male 9:28 AM LOCAL COMPANY REFRIGERATED TRUCK DRIVER Gender Identity Male 12/30/2022 7:11 AM CDT [...] 40 mg tablet once daily and omega 0-tnd-pob-fish oil (FISH OIL) 1,000 mg (120 mg-180 mg) capsule daily. Last lipid panel done 08/30/2024 at a [facility] reported a total cholesterol of 142, [...] 40 mg tablet once daily and omega 9-mpp-wcg-fish oil (FISH OIL) 1,000 mg (120 mg-180 mg) capsule daily. Last lipid panel done 08/30/2024 done at a [facility] reported a total cholesterol of 142, [...] lipid panel done 08/30/2024 done at a [facility] reported a total cholesterol of 142, [...] 12/30/2022 of 6.1. Will discuss with Mr. Yap to reach outto his primary care physician [...] All questions were answered. Fahad PlattS General Php Developer [facility] Pager:[phone] L COMPANY REFRIGERATED TRUCK DRIVER L COMPANY REFRIGERATED TRUCK DRIVER * Tahir Jones M.D. - 09/11/2024 1:15 [...] mg, oral, Daily multivitamin tablet Daily omega 5-uvh-nmo-fish oil (FISH OIL) 1,000 mg (120 mg-180 mg) capsule 1,000 mg, Daily omeprazole (PRILOSEC) 20 mg, Daily before morning meal rosuvastatin (Crestor) 40 mg tablet 1 tablet, Daily at bedtime saw palmetto fruit 450 mg capsule Daily triamcinolone (KENALOG) 0.1 % cream 1 Application, As needed I have interviewed and examined the patient, reviewed the chart in [facility], discussed with Dr. Buchanan ,and agree with [...] after above. Discussed and answered his questions. L COMPANY REFRIGERATED TRUCK DRIVER documented in this encounter Plan of Treatment Scheduled Orders Name Type Priority Associated Diagnoses Orde r Schedule Lipid Panel Lab Routine Dizziness Expected: 10/27/2024, Expires: 12/09/2025 Scheduled Referrals Name Type Priority Associated Diagnoses Order Schedule Cardiovascular Disease office visit (clinic) [facility]; General Outpatient Referral Routine Expected: 12/09/2024, Expires: 12/09/2025 documented as of this encounter Results * ECHO STRESS 2D WITH COLOR, LIMITED DOPPLER AND CONTRAST (09/12/2024 8:44 AM LOCAL COMPANY REFRIGERATED TRUCK DRIVER) Ejection Fraction 62 [facility] CV EIMS LV [...] Region Laterality Modality Echocardiography 09/12/2024 7:30 AM LOCAL COMPANY REFRIGERATED TRUCK DRIVER Impressions 09/12/2024 9:57 AM LOCAL COMPANY REFRIGERATED TRUCK DRIVER consistent with normal left ventricular filling pressure [...] per Echocardiography Contrast Administration Protocol Reference Document [id number] Rev 11/13/2021. Patient met an inclusion criterion and did not have contraindications in screening sections. For the complete report, see the Order-Level Documents. Narrative 09/12/2024 9:57 AM LOCAL COMPANY REFRIGERATED TRUCK DRIVER For the complete report, see the Order-Level [...] administered per Echocardiography Contrast Administration ProtocolReference Document [id number] Rev 11/13/2021. Patient met an inclusioncriterion and did not have contraindications in screening sections. For the complete report, see the Order-Level Documents. us Kve Rice CV ECHO PROCEDURES Final R esult documented in this encounter Visit Diagnoses Diagnosis Dizziness- Primary Diabetes Mellitus Type 2 (HCC) Hypertension Essential Primary Hyperlipidemia On Treatment Beat Premature Ventricular Atrial Premature Depolarization Family History Cardiovascular Disease Dizziness documented in this encounter
--- OUTSIDE RECORDS SUMMARY | 2024-09-26 08:32 | XMS_ITS | Encounter Summary ---
Author Organization [facility] Address [address] [place] [id number] Care Team Providers [employer] Transactions Attorney Name Role Phone Unavailable Primary Care Provider Unavailabl e Encounter Details Date Type Department Care Team (Latest Contact Info) Description 2024 10:04 AM DEPOT AGENT - 2024 12:27 PM [facility] Hospital Encounter Department of Laboratory Medicine and Pathology, [facility], in [place], [place] [address] [place] [address] Cal Ren, MAXS, P.A.-C., M.S. [address] [place] [address] Dizziness; Palpitations; Shortness Of Breath; Hyperlipidemia Discharge [...] AM CDT Legal Sex Male 9:28 AM DEPOT AGENT Gender Identity Male 12/30/2022 7:11 AM CDT [...] tablet Take by mouth daily. 05/17/2009 omega 4-wyk-emn-fish oil (FISH OIL) 1,000 mg (120 mg-180 [...] LIPID PANEL, S Routine 2024 10:18 AM DEPOT AGENT Dizziness Palpitations Shortness Of Breath Hyperlipidemia THYROID FUNCTION CASCADE, S Routine 2024 10:18 AM DEPOT AGENT Dizziness Palpitations Shortness Of Breath NT-PRO B-TYPE NATRIURETIC PEPTIDE (BNP), S Routine 2024 10:18 AM DEPOT AGENT Dizziness Palpitations Shortness Of Breath CBC WITH DIFFERENTIAL, B Routine 2024 10:18 AM DEPOT AGENT Dizziness Palpitations Shortness Of Breath MAGNESIUM, S Routine 2024 10:18 AM DEPOT AGENT Dizziness Palpitations Shortness Of Breath COMPREHENSIVE METABOLIC PANEL, S/P Routine 2024 10:18 AM DEPOT AGENT Dizziness Palpitations Shortness Of Breath documented in this encounter Results * (ABNORMAL) Lipid Panel (2024 10:18 AM DEPOT AGENT) Triglycerides 219(H) mg/dL 2024 11:32 AM DEPOT AGENT DTL Comment: ----REFERENCE VALUE---- Normal: <150 mg/dL Borderline High: 150-199 mg/dL High: 200-499 mg/dL Very High: > or =500 mg/dL Cholesterol, Total 142 mg/dL 2024 11:32 AM DEPOT AGENT DTL Comment: ----REFERENCE VALUE---- Desirable: < 200 mg/dL Borderline High: 200 - 239 mg/dL High: > or = 240 mg/dL Cholesterol, LDL, Calculated 62 mg/dL 2024 11:32 AM DEPOT AGENT DTL Comment: ----REFERENCE VALUE---- Desirable: <100 mg/dL Above Desirable: 100-129 mg/dL Borderline High: 130-159 mg/dL High: 160-189 mg/dL Very High: >=190 mg/dL ----ADDITIONAL INFORMATION---- LDL cholesterol calculated using the Cooper/NIH equation. Cholesterol, HDL, S 44 >=40 mg/dL 2024 11:32 AM DEPOT AGENT DTL Cholesterol, Non-HDL, Calculated 98 mg/dL 2024 11:32 AM DEPOT AGENT DTL Comment: ----REFERENCE VALUE---- Desirable: <130 mg/dL Above Desirable: 130-159 mg/dL Borderline High: 160-189 mg/dL High: 190-219 mg/dL Very High: > or =220 mg/dL Fasting (8 HR or more) Yes 2024 10:18 AM DEPOT AGENT DTL Blood (Blood, Venous) 2024 10:18 AM DEPOT AGENT 2024 10:56 AM DEPOT AGENT Cal ARITA P.A.-C., M.S. LAB BLOOD AD D-ON Final Result Performing Organization Address City/[facility]/ZIP Co de Phone Number [facility] [address] [place] [address], [facility] [address] [place] [address] * NT-Pro B-Type Natriuretic Peptide (BNP) (2024 10:18 AM DEPOT AGENT) NT-Pro BNP <36 <=540 pg/mL 2024 11:32 AM DEPOT AGENT DTL Comment: NT-proBNP values less than 300 [...] failure. Blood (Blood, Venous) 2024 10:18 AM DEPOT AGENT 2024 10:56 AM DEPOT AGENT Cal ARITA P.A.-C., M.S. LAB BLOOD AD D-ON Final Result Performing Organization Address City/[facility]/ZIP Co de Phone Number [facility] [address] [place] [address], [facility] [address] [place] [address] * Magnesium (2024 10:18 AM DEPOT AGENT) Magnesium, S 1.8 1.7 - 2.3 mg/dL 2024 11:32 AM DEPOT AGENT DTL Blood (Blood, Venous) 2024 10:18 AM DEPOT AGENT 2024 10:56 AM DEPOT AGENT us Cal ARITA P.A.-C., M.S. LAB BLOOD AD D-ON Final Result Performing Organization Address City/[facility]/ZIP Co de Phone Number [facility] [address] [place] [address] * Thyroid Function [place] (2024 10:18 AM DEPOT AGENT) TSH, Sensitive 2.5 0.3 - 4.2 mIU/L 2024 11:32 AM DEPOT AGENT DTL Blood (Blood, Venous) 2024 10:18 AM DEPOT AGENT 2024 10:56 AM DEPOT AGENT Cal ARITA P.A.-C., M.S. LAB BLOOD AD D-ON Final Result Performing Organization Address [facility] Co de Phone Number [facility] [address] [place] [address] * (ABNORMAL) Comprehensive Metabolic Panel (2024 10:18 AM DEPOT AGENT) Potassium, S 4.5 3.6 - 5.2 mmol/L 2024 11:32 AM DEPOT AGENT DTL Sodium, S 139 135 - 145 mmol/L 2024 11:32 AM DEPOT AGENT DTL Chloride, S 100 98 - 107 mmol/L 2024 11:32 AM DEPOT AGENT DTL Bicarbonate, S 28 22 - 29 mmol/L 2024 11:32 AM DEPOT AGENT DTL Anion Gap 11 7 - 15 2024 11:32 AM DEPOT AGENT DTL BUN (Blood Urea Nitrogen), S 21 8 - 24 mg/dL 2024 11:32 AM DEPOT AGENT DTL Creatinine 1.44(H) 0.74 - 1.35 mg/dL 2024 11:32 AM DEPOT AGENT DTL Estimated GFR (eGFR) 54(L) >=60 mL/min/BS A 2024 11:32 AM DEPOT AGENT DTL Comment: Estimated GFR calculated using the 2020 CKD_EPI creatinine equation. Calcium, Total, S 9.4 8.8 - 10.2 mg/dL 2024 11:32 AM DEPOT AGENT DTL Glucose, S 167(H) 70 - 140 mg/dL 2024 11:32 AM DEPOT AGENT DTL Protein, Total, S 6.7 6.3 - 7.9 g/dL 2024 11:32 AM DEPOT AGENT DTL Albumin, S 4.2 3.5 - 5.0 g/dL 2024 11:32 AM DEPOT AGENT DTL Aspartate Aminotransferase (AST), S 28 8 - 48 U/L 2024 11:32 AM DEPOT AGENT DTL Alkaline Phosphatase, S 76 40 - 129 U/L 2024 11:32 AM DEPOT AGENT DTL Alanine Aminotransferase (ALT), S 41 7 - 55 U/L 2024 11:32 AM DEPOT AGENT DTL Bilirubin, Total, S 0.6 0.0 - 1.2 mg/dL 2024 11:32 AM DEPOT AGENT DTL Blood (Blood, Venous) 2024 10:18 AM DEPOT AGENT 2024 10:56 AM DEPOT AGENT Cal ARITA PLuis ArmandoA.-C., M.S. LAB BLOOD AD D-ON Final Result [facility] [address] [place] [address], [facility] [address] [place] [address] * (ABNORMAL) CBC with Differential, Blood (2024 10:18 AM DEPOT AGENT) Hemoglobin 15.6 13.2 - 16.6 g/dL 2024 11:08 AM DEPOT AGENT DTL Hematocrit 46.7 38.3 - 48.6 % 2024 11:08 AM DEPOT AGENT DTL Erythrocytes 5.36 4.35 - 5.65 x10(12)/L 2024 11:08 AM DEPOT AGENT DTL MCV 87.1 78.2 - 97.9 fL 2024 11:08 AM DEPOT AGENT DTL RBC Distrib Width 13.2 11.8 - 14.5 % 2024 11:08 AM DEPOT AGENT DTL Platelet Count 304 135 - 317 x10(9)/L 2024 11:08 AM DEPOT AGENT DTL Leukocytes 9.4 3.4 - 9.6 x10(9)/L 2024 11:08 AM DEPOT AGENT DTL Neutrophils 6.05 1.56 - 6.45 x10(9)/L 2024 11:08 AM DEPOT AGENT DHPM Lymphocytes 2.24 0.95 - 3.07 x10(9)/L 2024 11:08 AM DEPOT AGENT DTL Monocytes 0.92(H) 0.26 - 0.81 x10(9)/L 2024 11:08 AM DEPOT AGENT DTL Eosinophils 0.15 0.03 - 0.48 x10(9)/L 2024 11:08 AM DEPOT AGENT DTL Basophils 0.05 0.01 - 0.08 x10(9)/L 2024 11:08 AM DEPOT AGENT DTL Blood (Blood, Venous) 2024 10:18 AM DEPOT AGENT 2024 10:41 AM DEPOT AGENT Cal ARITA P.A.-C., M.S. LAB BLOOD AD D-ON Final Result [facility] [address] [place] [address], [facility] DTL [facility] [address] [place] [address] [facility] [address] [place] [address] documented in this encounter Visit Diagnoses Diagnosis Dizziness Palpitations Shortness Of Breath Hyperlipidemia documented in this encounter
--- OUTSIDE RECORDS SUMMARY | 2024-09-26 08:32 | XMS_ITS | Clinical Summary ---
Author Organization [facility] Address [address] [place] [address] Care Team Providers Care School Fundraising Director Name Role Phone Unavailable Primary Care Provider Unavailabl e Source Comments Patient records contain information from all sites at [facility]. For routine questions regarding patient records, call [phone] during business hours, M-F 8:00 AM - 5:00 PM Central Time. Record requests for emergency care only can be directed to [phone] at any time.[facility] Allergies Active Allergy Reactions Criticality Noted Date [...] Take by mouth daily. 3 Active omega 7-msl-avn-fish oil (FISH OIL) 1,000 mg (120 mg-180 [...] 11/17/2018 11/17/2018 Atherosclerotic Heart Diseas e Of [place] Coronary Artery Without Angina Pectoris 11/17/2018 11/17/2018 Encounters Date Type Department Care Team Description 09/21/2024 9:58 AM ART DEALER - 09/21/2024 11:59 PM ART DEALER Hospital Encounter Department of Cardiovascular Diseases in [place], [place] [address] [place] [phone] Kev Buchanan M.B.B.S. Acquired Aortic Valve Disorder Discharge Disposition: Home or Self Care 09/21/2024 Results Follow-Up RST CVD Kev Buchanan M.B.B.S. Echo Transesophageal (LEOBARDO) 09/12/2024 7:13 AM ART DEALER - 09/12/2024 11:59 PM ART DEALER Hospital Encounter Department of Cardiovascular Diseases in [place], [place] [address] [place] [phone] Kev Buchanan M.B.B.S. Dizziness Discharge Disposition: Home or Self Care 09/12/2024 Results Follow-Up RST CVD Kev Buchanan M.B.B.S. Echo Stress 09/11/2024 1:15 PM ART DEALER Comprehensive Visit Department of Cardiovascular Medicine in [place], [place] [address] [place] [phone] Kev Buchanan M.B.B.S. Dizziness (Primary Dx); Diabetes Mellitus Type 2 (HCC); Hypertension Essential Primary; Hyperlipidemia On Treatment; Beat Premature Ventricular; Atrial Premature Depolarization; Family History Cardiovascular Disease 2024 3:33 PM ART DEALER - 2024 11:59 PM ART DEALER Hospital Encounter Department of Cardiovascular Diseases in [place], [place] [address] [place] [phone] Cal Ren MPAS, P.A.-C., M.S. Dizziness; Palpitations; Shortness Of Breath Discharge Disposition: Home or Self Care 2024 12:28 PM ART DEALER - 2024 3:32 PM ART DEALER Hospital Encounter Department of Cardiovascular Diseases in [place], [place] [address] [place] [phone] Cal Ren MPAS, P.A.-C., M.S. Dizziness; Palpitations; Shortness Of Breath Discharge Disposition: Home or Self Care 2024 10:04 AM ART DEALER - 2024 12:27 PM ART DEALER Hospital Encounter Department of Laboratory Medicine and Pathology, [facility] in [place], [place] [address] [place] [phone] Cal Ren MPAS, P.A.-C., M.S. Dizziness; Palpitations; Shortness Of Breath; Hyperlipidemia Discharge Disposition: Home or Self Care 2024 9:50 AM ART DEALER - 2024 10:03 AM ART DEALER Hospital Encounter Department of Radiology, [facility], in [place], [place] [address] [place] [address] Cal Ren MPAS, P.A.-C., M.S. Dizziness; Palpitations; Shortness Of Breath Discharge Disposition: Home or Self Care 08/23/2024 Clinical Communication Department of Cardiovascular Medicine in [place], [place] [address] [place] [address] Skilled Nursing Professional Adams M.D. Echo Move Up Request 08/21/2024 Referral Triage Department of Cardiovascular Medicine in [place], [place] [address] [place] [address] Skilled Nursing Professional Adams M.D. Referral Triage (CVD) from Last [...] 0.6 oz pur e alcohol) 1-2 drinks/week [facility] Utilities Answer Date Recorded In the [...] your living situation today? [facility] 09/06/2024 Sex and Gender Information Value Date Recorded Sex Assigned at Male 12/30/2022 7:10 AM CDT Legal Sex Male 9:28 AM ART DEALER Gender Identity Male 12/30/2022 7:11 AM CDT Sexual Orientation Straight 12/30/2022 7: 11 AM CDT Last Filed Vital Signs Vital Sign Reading Time Taken Comments Blood Pressure 113/79 09/21/2024 11:42 AM ART DEALER Pulse 61 09/21/2024 11:39 AM ART DEALER Temperature - - Respiratory Rate 17 09/21/2024 11:39 AM ART DEALER Oxygen Saturation 96% 09/21/2024 11:39 AM ART DEALER Inhaled Oxygen Concentration - - Weight 92 kg (202 lb 13.2 oz) 2024 6:12 PM ART DEALER Height 163 cm (5' 4.17) 2024 6:12 PM ART DEALER Body Mass Index 34.63 2024 6:12 PM ART DEALER Plan of Treatment Health Maintenance Due Date Last Done Comments CT Colonography 1958 Cologuard 1960 FIT 1960 Hepatitis B Screening 1960 Hepatitis C Screening 1960 Office Visit [...] DOPPLER AND CONTRAST Routine 09/21/2024 11:32 AM ART DEALER Acquired Aortic Valve Disorder ECHO STRESS 2D WITH COLOR, LIMITED DOPPLER AND CONTRAST Routine 09/12/2024 8:44 AM ART DEALER Dizziness HOLTER MONITOR - IN CLINIC COMPLEX DIRECTOR Routine 08/30/2024 10:03 AM ART DEALER Dizziness Palpitations Shortness Of Breath (TTE) 2D ECHO DOPPLER COLOR Routine 2024 5:58 PM ART DEALER Dizziness Palpitations Shortness Of Breath LIPID PANEL, S Routine 2024 10:18 AM ART DEALER Dizziness Palpitations Shortness Of Breath Hyperlipidemia NT-PRO B-TYPE NATRIURETIC PEPTIDE (BNP), S Routine 2024 10:18 AM ART DEALER Dizziness Palpitations Shortness Of Breath MAGNESIUM, S Routine 2024 10:18 AM ART DEALER Dizziness Palpitations Shortness Of Breath THYROID FUNCTION CASCADE, S Routine 2024 10:18 AM ART DEALER Dizziness Palpitations Shortness Of Breath COMPREHENSIVE METABOLIC PANEL, S/P Routine 2024 10:18 AM ART DEALER Dizziness Palpitations Shortness Of Breath CBC WITH DIFFERENTIAL, B Routine 2024 10:18 AM ART DEALER Dizziness Palpitations Shortness Of Breath DX CHEST AP OR PA AND LATERAL 2 VIEWS RAD - Routine (most inpatients and all outpatients) 2024 9:56 AM ART DEALER Dizziness Palpitations Shortness Of Breath ECG Routine 2024 9:41 AM ART DEALER Dizziness Palpitations Shortness Of Breath from Last 3 Months Results * (LEOBARDO) 2D WITH COLOR, LIMITED DOPPLER AND CONTRAST (09/21/2024 11:32 AM ART DEALER) Ejection Fraction 65 [facility] Mallampati As documented in the RN pre-procedure assessment [facility] ASA Class II [facility] Echo H and P 09/21/2024 11:01 [facility] Anatomical Region Laterality Modality Echocardiography 09/21/2024 10:0 5 AM ART DEALER Impressions 09/21/2024 1:09 PM ART DEALER PRE-SEDATION ASSESSMENT & CONSENT (performed immediately prior [...] documented in the medical record and the switchboard manager. The physician independently performed a pertinent examination [...] performed at the request of the primary enterprise services manager. Transesophageal echocardiogram performed by the physician sprinkler inspector(s), as listed in this report. Adult probe [...] causing suboptimal opacification of interatrial septum. No [id number] shunt at atrial level at rest or [...] the Order-Level Documents. Narrative 09/21/2024 1:09 PM ART DEALER For the complete report, see the Order-Level [...] as documented inthe medical record and the switchboard manager. The physician independentlyperformed a pertinent examination including [...] performed at the request of the primaryservice service consultant. Transesophageal echocardiogram performed by thebeverly hospitalsician sprinkler inspector(s), as listed in this report. Adult probeinserted [...] atrium, causing suboptimalopacification of interatrial septum. No jtxab-eu-wvky shunt at atriallevel at rest or with [...] Sedation Narrator or other pertinent record in [employer] foradditional procedure and sedation information. Physician signed forprocedural medications and the patient was discharged when dischargecriteria were met. For the complete report, see the Order-Level Documents. us Kev Rice CV ECHO PROCEDURES Final R esult * ECHO STRESS 2D WITH COLOR, LIMITED DOPPLER AND CONTRAST (09/12/2024 8:44 AM ART DEALER) Ejection Fraction 62 MC CV EIMS LV [...] Region Laterality Modality Echocardiography 09/12/2024 7:30 AM ART DEALER Impressions 09/12/2024 9:57 AM ART DEALER consistent with normal left ventricular filling pressure [...] per Echocardiography Contrast Administration Protocol Reference Document [id number] Rev 11/13/2021. Patient met an inclusion criterion and did not have contraindications in screening sections. For the complete report, see the Order-Level Documents. Narrative 09/12/2024 9:57 AM ART DEALER For the complete report, see the Order-Level [...] administered per Echocardiography Contrast Administration ProtocolReference Document [id number] Rev 11/13/2021. Patient met an inclusioncriterion and did not have contraindications in screening sections. For the complete report, see the Order-Level Documents. Kev Rice CV ECHO PROCEDURES Final R esult * HOLTER MONITOR - IN CLINIC COMPLEX DIRECTOR (08/30/2024 10:03 AM ART DEALER) Min Heart Rate 54 bpm INFOB IONIC [...] Duration 0 duration INFOBION IC MOME AF [place] 0 percent INFOBIONIC MOME Symptom Count 0 count INFOBI ONIC MOME 2024 12:3 3 PM ART DEALER Narrative INFOBIONIC MOME - 08/31/2024 2:10 PM ART DEALER 1. The basic rhythm was sinus with [...] no events noted with which to correlate. Crystal Flat Grinder: NILTON Aguilar/ NILTON Capellan Procedure Note Jarvis [...] with no events noted with which tocorrelate. Crystal Flat Grinder: NILTON Aguilar/ NILTON Capellan us Cal ARITA P.A.-C., M.S. CV CARDIAC S ERVICES PROCEDURES Final Result INFOBIONIC MONI NA * (TTE) 2D ECHO DOPPLER COLOR (2024 5:58 PM ART DEALER) Ejection Fraction 71 MC CV EIMS Proximal [...] Region Laterality Modality Echocardiography 2024 4:50 PM ART DEALER Impressions 2024 6:35 PM ART DEALER LEFT VENTRICLE:Normal left ventricular chamber size. Sigmoid [...] the Order-Level Documents. Narrative 2024 6:35 PM ART DEALER For the complete report, see the Order-Level [...] complete report, see the Order-Level Documents. Cal Geovani ARITA P.A.-C., M.S. CV ECHO PROC EDURES Final Result * (ABNORMAL) Lipid Panel (2024 10:18 AM ART DEALER) Triglycerides 219(H) mg/dL 2024 11:32 AM ART DEALER DTL Comment: ----REFERENCE VALUE---- Normal: <150 mg/dL Borderline High: 150-199 mg/dL High: 200-499 mg/dL Very High: > or =500 mg/dL Cholesterol, Total 142 mg/dL 2024 11:32 AM ART DEALER DTL Comment: ----REFERENCE VALUE---- Desirable: < 200 mg/dL Borderline High: 200 - 239 mg/dL High: > or = 240 mg/dL Cholesterol, LDL, Calculated 62 mg/dL 2024 11:32 AM ART DEALER DTL Comment: ----REFERENCE VALUE---- Desirable: <100 mg/dL Above Desirable: 100-129 mg/dL Borderline High: 130-159 mg/dL High: 160-189 mg/dL Very High: >=190 mg/dL ----ADDITIONAL INFORMATION---- LDL cholesterol calculated using the Cooper/NIH equation. Cholesterol, HDL, S 44 >=40 mg/dL 2024 11:32 AM ART DEALER DTL Cholesterol, Non-HDL, Calculated 98 mg/dL 2024 11:32 AM ART DEALER DTL Comment: ----REFERENCE VALUE---- Desirable: <130 mg/dL Above Desirable: 130-159 mg/dL Borderline High: 160-189 mg/dL High: 190-219 mg/dL Very High: > or =220 mg/dL Fasting (8 HR or more) Yes 2024 10:18 AM ART DEALER DTL Blood (Blood, Venous) 2024 10:18 AM ART DEALER 2024 10:56 AM ART DEALER Cal ARITA P.A.-C., M.S. LAB BLOOD AD D-ON Final Result Performing Organization Address [facility] Co de Phone Number [facility] [address] [place] [address], [facility] [address] [place] [address] * Thyroid Function [place] (2024 10:18 AM ART DEALER) Pathologist [facility] TSH, Sensitive 2.5 0.3 - 4.2 mIU/L 2024 11:32 AM ART DEALER DTL Blood (Blood, Venous) 2024 10:18 AM ART DEALER 2024 10:56 AM ART DEALER us Cal ARITA P.A.-C., M.S. LAB BLOOD AD D-ON Final Result Performing Organization Address [facility] Co de Phone Number [facility] [address] [place] [address] * NT-Pro B-Type Natriuretic Peptide (BNP) (2024 10:18 AM ART DEALER) Pathologist [facility] NT-Pro BNP <36 <=540 pg/mL 2024 11:32 AM ART DEALER DTL Comment: NT-proBNP values less than 300 [...] failure. Blood (Blood, Venous) 2024 10:18 AM ART DEALER 2024 10:56 AM ART DEALER us Cal ARITA P.A.-C., M.S. LAB BLOOD AD D-ON Final Result [facility] [address] [place] [address], [facility] DTL [facility] [address] [place] [address] * (ABNORMAL) CBC with Differential, Blood (2024 10:18 AM ART DEALER) Pathologist [facility] Hemoglobin 15.6 13.2 - 16.6 g/dL 2024 11:08 AM ART DEALER DTL Hematocrit 46.7 38.3 - 48.6 % 2024 11:08 AM ART DEALER DTL Erythrocytes 5.36 4.35 - 5.65 x10(12)/L 2024 11:08 AM ART DEALER DTL MCV 87.1 78.2 - 97.9 fL 2024 11:08 AM ART DEALER DTL RBC Distrib Width 13.2 11.8 - 14.5 % 2024 11:08 AM ART DEALER DTL Platelet Count 304 135 - 317 x10(9)/L 2024 11:08 AM ART DEALER DTL Leukocytes 9.4 3.4 - 9.6 x10(9)/L 2024 11:08 AM ART DEALER DTL Neutrophils 6.05 1.56 - 6.45 x10(9)/L 2024 11:08 AM ART DEALER DHPM Lymphocytes 2.24 0.95 - 3.07 x10(9)/L 2024 11:08 AM ART DEALER DTL Monocytes 0.92(H) 0.26 - 0.81 x10(9)/L 2024 11:08 AM ART DEALER DTL Eosinophils 0.15 0.03 - 0.48 x10(9)/L 2024 11:08 AM ART DEALER DTL Basophils 0.05 0.01 - 0.08 x10(9)/L 2024 11:08 AM ART DEALER DTL Blood (Blood, Venous) 2024 10:18 AM ART DEALER 2024 10:41 AM ART DEALER Cal ARITA P.A.-C., M.S. LAB BLOOD AD D-ON Final Result Performing Organization Address [facility]/ZIP Co de Phone Number [facility] [address] [place] [address], [facility] [address] [place] [address] * Magnesium (2024 10:18 AM ART DEALER) Magnesium, S 1.8 1.7 - 2.3 mg/dL 2024 11:32 AM ART DEALER DTL Blood (Blood, Venous) 2024 10:18 AM ART DEALER 2024 10:56 AM ART DEALER Cal ARITA P.A.-C., M.S. LAB BLOOD AD D-ON Final Result Performing Organization Address [facility] Co de Phone Number [facility] [address] [place] [address] * (ABNORMAL) Comprehensive Metabolic Panel (2024 10:18 AM ART DEALER) Potassium, S 4.5 3.6 - 5.2 mmol/L 2024 11:32 AM ART DEALER DTL Sodium, S 139 135 - 145 mmol/L 2024 11:32 AM ART DEALER DTL Chloride, S 100 98 - 107 mmol/L 2024 11:32 AM ART DEALER DTL Bicarbonate, S 28 22 - 29 mmol/L 2024 11:32 AM ART DEALER DTL Anion Gap 11 7 - 15 2024 11:32 AM ART DEALER DTL BUN (Blood Urea Nitrogen), S 21 8 - 24 mg/dL 2024 11:32 AM ART DEALER DTL Creatinine 1.44(H) 0.74 - 1.35 mg/dL 2024 11:32 AM ART DEALER DTL Estimated GFR (eGFR) 54(L) >=60 mL/min/BS A 2024 11:32 AM ART DEALER DTL Comment: Estimated GFR calculated using the 2020 CKD_EPI creatinine equation. Calcium, Total, S 9.4 8.8 - 10.2 mg/dL 2024 11:32 AM ART DEALER DTL Glucose, S 167(H) 70 - 140 mg/dL 2024 11:32 AM ART DEALER DTL Protein, Total, S 6.7 6.3 - 7.9 g/dL 2024 11:32 AM ART DEALER DTL Albumin, S 4.2 3.5 - 5.0 g/dL 2024 11:32 AM ART DEALER DTL Aspartate Aminotransferase (AST), S 28 8 - 48 U/L 2024 11:32 AM ART DEALER DTL Alkaline Phosphatase, S 76 40 - 129 U/L 2024 11:32 AM ART DEALER DTL Alanine Aminotransferase (ALT), S 41 7 - 55 U/L 2024 11:32 AM ART DEALER DTL Bilirubin, Total, S 0.6 0.0 - 1.2 mg/dL 2024 11:32 AM ART DEALER DTL Blood (Blood, Venous) 2024 10:18 AM ART DEALER 2024 10:56 AM ART DEALER Cal ARITA, P.A.-C., M.S. LAB BLOOD AD D-ON Final Result [facility] [address] [place] [address], [facility] DTL [facility] [address] [place] [address] * DX Chest AP or PA and Lateral 2 Views (2024 9:56 AM ART DEALER) Anatomical Region Laterality Modality Chest, Thoracic RST LOS, Tho racic ARZ LOS, Thoracic FLA LOS N/A Digital Radiography Impressions 2024 10:37 AM ART DEALER No significant change since 02/06/2019. Tortuous, mildly calcified aorta with mild prominence of the ascending aorta. Mild scarring left lung base. Chest is otherwise negative. Narrative 2024 10:37 AM ART DEALER EXAM: DX CHEST AP OR PA AND [...] * ECG 12 Lead (2024 9:41 AM ART DEALER) Ventricular Rate ECG/Min 79 BPM MUSE WY Interval 198 ms MUSE QRSD Interval 104 ms MUSE QT Interval 360 ms MUSE QTC Interval 412 ms MUSE P Makinen 45 degrees MUSE R Mak[place] -16 degrees MUSE T Wave Makinen 49 degrees MUSE 2024 9:41 AM ART DEALER 2024 9:52 AM ART DEALER Impressions MUSE - 2024 9:52 AM ART DEALER Normal sinus rhythm Normal ECG When compared [...] NA from Last 3 Months Insurance MEDICARE [facility] [place] [address] [address]UM[address] TERRY MENENDEZ [id number] * Guarantor: MARI YAP Account Type Relation to Patient Date of Phone Billing Address Client/Submitter Employer Advance Directives For more information, please contact: [phone] Documents on File Type Date Recorded Patient Business Change Manager Expl anation Advance Directives 01/16/2022 2:12 PM Karey Pérez [place] HCPOA/ADVOCATE/AGENT/R EPRESENTATIVE/SURROGAT E Healthcare Agents on File Name Relationship Healthcare Agent Relationshi p Communication Karey Yap Spouse Health Care Agent [email or web address] [place] Unknown First Alternate Health Care Agent Neema [place] Unknown Second Alternate Health Care Agent
--- OUTSIDE RECORDS SUMMARY | 2024-09-26 08:32 | XMS_ITS | Encounter Summary ---
Author Organization [facility] Address [address] [place] [id number] Care Team Providers Care Global Sourcing Manager Name Role Phone Unavailable Primary Care Provider Unavailabl e Reason for Referral * Outpatient (Routine) - Closed Specialty Diagnoses / Procedures Referred By Hyacinth larsne Referred To Contact Diagnoses Dizziness Palpitations Shortness Of Breath Procedures DX Chest AP or PA and Lateral 2 Views Cal Ren MPAS, P.A.-C., M.S. [address] [place] [phone] Phone: tel: fax: [facility] Referral ID Status Reason Start Date Expiration Date Visits Re quested Visits Authorized [id number] Closed 08/22/2024 11/22/2025 1 1 OR TESTER Reason for Visit * Outpatient (Routine) - Closed Specialty Diagnoses / Procedures Referred By Contac t Referred To Contact Diagnoses Dizziness Palpitations Shortness Of Breath Procedures DX Chest AP or PA and Lateral 2 Views Cal Ren MPAS, P.A.-C., M.S. [address] [place] [phone] Phone: tel: fax: [facility] Referral ID Status Reason Start Date Expiration Date Visits Re quested Visits Authorized [id number] Closed 08/22/2024 11/22/2025 1 1 Encounter Details Date Type Department Care Team (Latest Contact Info) Description 2024 9:50 AM LIQUOR TESTER - 2024 10:03 AM LIQUOR TESTER Hospital Encounter Department of Radiology, [facility], in [place], [place] [address] [place] [address] Cal Ren MPAS, P.A.-C., M.S. [address] [place] [address] Dizziness; Palpitations; Shortness Of Breath Discharge Disposition: [...] AM CDT Legal Sex Male 9:28 AM LIQUOR TESTER Gender Identity Male 12/30/2022 7:11 AM CDT [...] tablet Take by mouth daily. 05/17/2009 omega 2-hmk-tbd-fish oil (FISH OIL) 1,000 mg (120 mg-180 [...] inpatients and all outpatients) 2024 9:56 AM LIQUOR TESTER Dizziness Palpitations Shortness Of Breath documented in this encounter Results * DX Chest AP or PA and Lateral 2 Views (2024 9:56 AM LIQUOR TESTER) Anatomical Region Laterality Modality Chest, Thoracic RST LOS, Tho racic ARZ LOS, Thoracic FLA LOS N/A Digital Radiography Impressions 2024 10:37 AM LIQUOR TESTER No significant change since 02/06/2019. Tortuous, mildly calcified aorta with mild prominence of the ascending aorta. Mild scarring left lung base. Chest is otherwise negative. Narrative 2024 10:37 AM LIQUOR TESTER EXAM: DX CHEST AP OR PA AND [...]
--- OUTSIDE RECORDS SUMMARY | 2024-09-26 08:32 | XMS_ITS | Encounter Summary ---
Author Organization [facility] Address [address] [place] [address] Care Team Providers Care Bisque Brusher Name Role Phone Unavailable Primary Care Provider Unavailabl e Reason for Referral * Cardiovascular-Diagnostic (Routine) - Closed Specialty Diagnoses / Procedures Referred By Contac t Referred To Contact Diagnoses Dizziness Palpitations Shortness Of Breath Procedures Echo Transthoracic (TTE) Cal Ren MPAS, P.A.-C., M.S. [address] [place] [address] Phone: tel: fax: [facility] Referral ID Status Reason Start Date Expiration Date Visits Re quested Visits Authorized [id number] Closed 08/22/2024 11/22/2025 1 1 OW AGENT * Outpatient (Routine) - Authorized Specialty Diagnoses / Procedures Referred By Contac t Referred To Contact Diagnoses Dizziness Palpitations Shortness Of Breath Procedures ECG Heart rhythm monitor (Holter) Cal Ren MPAS, P.A.-C., M.S. [address] [place] [address] Phone: tel: fax: [facility] Referral ID Status Reason Start Date Expiration Date V isits Requested Visits Authorized [id number] Authorized 08/22/2024 11/22/2025 1 1 OW AGENT * Outpatient (Routine) - Closed Specialty Diagnoses / Procedures Referred By Contac t Referred To Contact Diagnoses Dizziness Palpitations Shortness Of Breath Procedures DX Chest AP or PA and Lateral 2 Views Cal Ren MPAS, P.A.-C., M.S. [address] [place] [phone] Phone: tel: fax: [facility] Referral ID Status Reason Start Date Expiration Date Visits Re quested Visits Authorized [id number] Closed 08/22/2024 11/22/2025 1 1 OW AGENT * Outpatient (Routine) - Closed Specialty Diagnoses / Procedures Referred By Contac t Referred To Contact Diagnoses Dizziness Palpitations Shortness Of Breath Procedures ECG 12 Lead Cal Ren MPAS, P.A.-C., M.S. [address] [place] [phone] Phone: tel: fax: [facility] Referral ID Status Reason Start Date Expiration Date Visits Re quested Visits Authorized [id number] Closed 08/22/2024 11/22/2025 1 1 OW AGENT Reason for Visit * Reason Onset Date Comments Referral Triage 08/21/2024 CVD Encounter Details Date Type Department Care Team (Latest Contact Info) Description 08/21/2024 Referral Triage Department of Cardiovascular Medicine in [place], [place] [address] [place] [phone] Machine FormerAdams M.D. Referral Triage (CVD) Social History Tobacco [...] AM CDT Legal Sex Male 9:28 AM PILLOW AGENT Gender Identity Male 12/30/2022 7:11 AM CDT Sexual Orientation Straight 12/30/2022 7: 11 AM CDT documented as of this encounter Plan of Treatment Not on file documented as of this encounter Results * HOLTER MONITOR - IN CLINIC CUT ORDER HAND (08/30/2024 10:03 AM PILLOW AGENT) Min Heart Rate 54 bpm INFOB IONIC [...] Duration 0 duration INFOBION IC MOME [employer] [place] 0 percent INFOBIONIC MOME Symptom Count 0 count INFOBI ONIC MOME 2024 12:3 3 PM PILLOW AGENT Narrative INFOBIONIC MOME - 08/31/2024 2:10 PM PILLOW AGENT 1. The basic rhythm was sinus with [...] no events noted with which to correlate. Marine Superintendent: NILTON Aguilar/ NILTON Capellan Procedure Note Jarvis [...] with no events noted with which tocorrelate. Marine Superintendent: NILTON Aguilar/ NILTON Capellan Cal ARITA P.A.-C., M.S. CV CARDIAC S ERVICES PROCEDURES Final Result INFOBIOGHISLAINE MONTENEGRO NA * (TTE) 2D ECHO DOPPLER COLOR (2024 5:58 PM PILLOW AGENT) Ejection Fraction 71 MC CV EIMS Proximal [...] Region Laterality Modality Echocardiography 2024 4:50 PM PILLOW AGENT Impressions 2024 6:35 PM PILLOW AGENT LEFT VENTRICLE:Normal left ventricular chamber size. Sigmoid [...] the Order-Level Documents. Narrative 2024 6:35 PM PILLOW AGENT For the complete report, see the Order-Level [...] * (ABNORMAL) Lipid Panel (2024 10:18 AM PILLOW AGENT) Triglycerides 219(H) mg/dL 2024 11:32 AM PILLOW AGENT DTL Comment: ----REFERENCE VALUE---- Normal: <150 mg/dL Borderline High: 150-199 mg/dL High: 200-499 mg/dL Very High: > or =500 mg/dL Cholesterol, Total 142 mg/dL 2024 11:32 AM PILLOW AGENT DTL Comment: ----REFERENCE VALUE---- Desirable: < 200 mg/dL Borderline High: 200 - 239 mg/dL High: > or = 240 mg/dL Cholesterol, LDL, Calculated 62 mg/dL 2024 11:32 AM PILLOW AGENT DTL Comment: ----REFERENCE VALUE---- Desirable: <100 mg/dL Above Desirable: 100-129 mg/dL Borderline High: 130-159 mg/dL High: 160-189 mg/dL Very High: >=190 mg/dL ----ADDITIONAL INFORMATION---- LDL cholesterol calculated using the Cooper/NIH equation. Cholesterol, HDL, S 44 >=40 mg/dL 2024 11:32 AM PILLOW AGENT DTL Cholesterol, Non-HDL, Calculated 98 mg/dL 2024 11:32 AM PILLOW AGENT DTL Comment: ----REFERENCE VALUE---- Desirable: <130 mg/dL Above Desirable: 130-159 mg/dL Borderline High: 160-189 mg/dL High: 190-219 mg/dL Very High: > or =220 mg/dL Fasting (8 HR or more) Yes 2024 10:18 AM PILLOW AGENT DTL Blood (Blood, Venous) 2024 10:18 AM PILLOW AGENT 2024 10:56 AM PILLOW AGENT Cal ARTIA P.A.-C., M.S. LAB BLOOD AD D-ON Final Result Performing Organization Address [facility] Co de Phone Number [facility] [address] [place] [address], [facility] [address] [place] [address] * NT-Pro B-Type Natriuretic Peptide (BNP) (2024 10:18 AM PILLOW AGENT) NT-Pro BNP <36 <=540 pg/mL 2024 11:32 AM PILLOW AGENT DT Comment: NT-proBNP values less than 300 [...] failure. Blood (Blood, Venous) 2024 10:18 AM PILLOW AGENT 2024 10:56 AM PILLOW AGENT Cal ARITA P.A.-C., M.S. LAB BLOOD AD D-ON Final Result Performing Organization Address City/[facility]/ZIP Co de Phone Number [facility] [address] [place] [address], [facility] [address] [place] [address] * Magnesium (2024 10:18 AM PILLOW AGENT) Pathologist [facility] Magnesium, S 1.8 1.7 - 2.3 mg/dL 2024 11:32 AM PILLOW AGENT DTL Blood (Blood, Venous) 2024 10:18 AM PILLOW AGENT 2024 10:56 AM PILLOW AGENT Cal ARITA P.A.-C., M.S. LAB BLOOD AD D-ON Final Result Performing Organization Address [facility] Co de Phone Number [facility] [address] [place] [address], [facility] [address] [place] [address] * Thyroid Function [place] (2024 10:18 AM PILLOW AGENT) TSH, Sensitive 2.5 0.3 - 4.2 mIU/L 2024 11:32 AM PILLOW AGENT DTL Blood (Blood, Venous) 2024 10:18 AM PILLOW AGENT 2024 10:56 AM PILLOW AGENT us Cal ARITA P.A.-C., M.S. LAB BLOOD AD D-ON Final Result Performing Organization Address [facility] Co de Phone Number [facility] [address] [place] [address], [facility] [address] [place] [address] * (ABNORMAL) Comprehensive Metabolic Panel (2024 10:18 AM PILLOW AGENT) Potassium, S 4.5 3.6 - 5.2 mmol/L 2024 11:32 AM PILLOW AGENT DTL Sodium, S 139 135 - 145 mmol/L 2024 11:32 AM PILLOW AGENT DTL Chloride, S 100 98 - 107 mmol/L 2024 11:32 AM PILLOW AGENT DTL Bicarbonate, S 28 22 - 29 mmol/L 2024 11:32 AM PILLOW AGENT DTL Anion Gap 11 7 - 15 2024 11:32 AM PILLOW AGENT DTL BUN (Blood Urea Nitrogen), S 21 8 - 24 mg/dL 2024 11:32 AM PILLOW AGENT DTL Creatinine 1.44(H) 0.74 - 1.35 mg/dL 2024 11:32 AM PILLOW AGENT DTL Estimated GFR (eGFR) 54(L) >=60 mL/min/BS A 2024 11:32 AM PILLOW AGENT DTL Comment: Estimated GFR calculated using the 2020 CKD_EPI creatinine equation. Calcium, Total, S 9.4 8.8 - 10.2 mg/dL 2024 11:32 AM PILLOW AGENT DTL Glucose, S 167(H) 70 - 140 mg/dL 2024 11:32 AM PILLOW AGENT DTL Protein, Total, S 6.7 6.3 - 7.9 g/dL 2024 11:32 AM PILLOW AGENT DTL Albumin, S 4.2 3.5 - 5.0 g/dL 2024 11:32 AM PILLOW AGENT DTL Aspartate Aminotransferase (AST), S 28 8 - 48 U/L 2024 11:32 AM PILLOW AGENT DTL Alkaline Phosphatase, S 76 40 - 129 U/L 2024 11:32 AM PILLOW AGENT DTL Alanine Aminotransferase (ALT), S 41 7 - 55 U/L 2024 11:32 AM PILLOW AGENT DTL Bilirubin, Total, S 0.6 0.0 - 1.2 mg/dL 2024 11:32 AM PILLOW AGENT DTL Blood (Blood, Venous) 2024 10:18 AM PILLOW AGENT 2024 10:56 AM PILLOW AGENT Cal ARITA, P.A.-C., M.S. LAB BLOOD AD D-ON Final Result [facility] [address] [place] [address], [facility] [address] [place] [address] * (ABNORMAL) CBC with Differential, Blood (2024 10:18 AM PILLOW AGENT) Hemoglobin 15.6 13.2 - 16.6 g/dL 2024 11:08 AM PILLOW AGENT DTL Hematocrit 46.7 38.3 - 48.6 % 2024 11:08 AM PILLOW AGENT DTL Erythrocytes 5.36 4.35 - 5.65 x10(12)/L 2024 11:08 AM PILLOW AGENT DTL MCV 87.1 78.2 - 97.9 fL 2024 11:08 AM PILLOW AGENT DTL RBC Distrib Width 13.2 11.8 - 14.5 % 2024 11:08 AM PILLOW AGENT DTL Platelet Count 304 135 - 317 x10(9)/L 2024 11:08 AM PILLOW AGENT DTL Leukocytes 9.4 3.4 - 9.6 x10(9)/L 2024 11:08 AM PILLOW AGENT DTL Neutrophils 6.05 1.56 - 6.45 x10(9)/L 2024 11:08 AM PILLOW AGENT DHPM Lymphocytes 2.24 0.95 - 3.07 x10(9)/L 2024 11:08 AM PILLOW AGENT DTL Monocytes 0.92(H) 0.26 - 0.81 x10(9)/L 2024 11:08 AM PILLOW AGENT DTL Eosinophils 0.15 0.03 - 0.48 x10(9)/L 2024 11:08 AM PILLOW AGENT DTL Basophils 0.05 0.01 - 0.08 x10(9)/L 2024 11:08 AM PILLOW AGENT DTL Blood (Blood, Venous) 2024 10:18 AM PILLOW AGENT 2024 10:41 AM PILLOW AGENT Cal ARITA, P.A.-C., M.S. LAB BLOOD AD D-ON Final Result [facility] [address] [place] [address], [place] DTL [facility] [address] [place] [address] [facility] [address] [place] [address] * DX Chest AP or PA and Lateral 2 Views (2024 9:56 AM PILLOW AGENT) Anatomical Region Laterality Modality Chest, Thoracic RST LOS, Tho racic ARZ LOS, Thoracic FLA LOS N/A Digital Radiography Impressions 2024 10:37 AM PILLOW AGENT No significant change since 02/06/2019. Tortuous, mildly calcified aorta with mild prominence of the ascending aorta. Mild scarring left lung base. Chest is otherwise negative. Narrative 2024 10:37 AM PILLOW AGENT EXAM: DX CHEST AP OR PA AND [...] * ECG 12 Lead (2024 9:41 AM PILLOW AGENT) Ventricular Rate ECG/Min 79 BPM MUSE VT Interval 198 ms MUSE QRSD Interval 104 ms MUSE QT Interval 360 ms MUSE QTC Interval 412 ms MUSE P [place] 45 degrees MUSE R [place] -16 degrees MUSE T Wave [place] 49 degrees MUSE 2024 9:41 AM PILLOW AGENT 2024 9:52 AM PILLOW AGENT Impressions MUSE - 2024 9:52 AM PILLOW AGENT Normal sinus rhythm Normal ECG When compared [...]
--- OUTSIDE RECORDS SUMMARY | 2024-09-26 08:32 | XMS_ITS | Encounter Summary ---
Author Organization [facility] Address [address] [place] [address] Care Team Providers Care Heavy Duty Custodian Name Role Phone Unavailable Primary Care Provider Unavailabl e Reason for Visit * Reason Onset Date Comments Echo Move Up Request 08/23/2024 Encounter Details Date Type Department Care Team (Latest Contact Info) Description 08/23/2024 Clinical Communication Department of Cardiovascular Medicine in [place], [place] [address] [place] [address] Lan/Wan EngineerAdams M.D. Echo Move Up Request Social History [...] AM CDT Legal Sex Male 9:28 AM ACCOUNTS RECEIVABLE ANALYST Gender Identity Male 12/30/2022 7:11 AM CDT [...] for replies: P RST CVD COMP SCHEDULING UNTS RECEIVABLE ANALYST documented in this encounter Plan of Treatment Not on file documented as of this encounter Visit Diagnoses Not on filedocumented in this encounter
--- OUTSIDE RECORDS SUMMARY | 2024-09-26 08:33 | XMS_ITS | Encounter Summary ---
Author Organization [facility] Address [address] [place] [address] Care Team Providers Care Logistics Specialist Name Role Phone Unavailable Primary Care Provider Unavailabl e Reason for Referral * Cardiovascular-Diagnostic (Routine) - Closed Specialty Diagnoses / Procedures Referred By Contac t Referred To Contact Diagnoses Dizziness Palpitations Shortness Of Breath Procedures Echo Transthoracic (TTE) Cal Ren MPAS, P.A.-C., M.S. [address] [place] [phone] Phone: tel: fax: [facility] Referral ID Status Reason Start Date Expiration Date Visits Re quested Visits Authorized [id number] Closed 08/22/2024 11/22/2025 1 1 CULTURE LABORATORY TECHNICIAN Reason for Visit * Cardiovascular-Diagnostic (Routine) - Closed Specialty Diagnoses / Procedures Referred By Contac t Referred To Contact Diagnoses Dizziness Palpitations Shortness Of Breath Procedures Echo Transthoracic (TTE) Cal Ren MPAS, P.A.-C., M.S. [address] [place] [phone] Phone: tel: fax: [facility] Referral ID Status Reason Start Date Expiration Date Visits Re quested Visits Authorized [id number] Closed 08/22/2024 11/22/2025 1 1 Encounter Details Date Type Department Care Team (Latest Contact Info) Description 2024 3:33 PM AGRICULTURE LABORATORY TECHNICIAN - 2024 11:59 PM AGRICULTURE LABORATORY TECHNICIAN Hospital Encounter Department of Cardiovascular Diseases in [place], [place] [address] [place] [address] Cal Ren MPAS, P.A.-C., M.S. [address] [place] [address] Dizziness; Palpitations; Shortness Of Breath Discharge Disposition: [...] AM CDT Legal Sex Male 9:28 AM AGRICULTURE LABORATORY TECHNICIAN Gender Identity Male 12/30/2022 7:11 AM [...] (202 lb 13.2 oz) 2024 6:12 PM AGRICULTURE LABORATORY TECHNICIAN Height 163 cm (5' 4.17) 2024 6:12 PM AGRICULTURE LABORATORY TECHNICIAN Body Mass Index 34.63 2024 6:12 PM AGRICULTURE LABORATORY TECHNICIAN documented in this encounter Medications at Time [...] tablet Take by mouth daily. 05/17/2009 omega 7-gxu-pdt-fish oil (FISH OIL) 1,000 mg (120 mg-180 [...] ECHO DOPPLER COLOR Routine 2024 5:58 PM AGRICULTURE LABORATORY TECHNICIAN Dizziness Palpitations Shortness Of Breath documented in this encounter Results * (TTE) 2D ECHO DOPPLER COLOR (2024 5:58 PM AGRICULTURE LABORATORY TECHNICIAN) Ejection Fraction 71 MC CV EIMS [...] Region Laterality Modality Echocardiography 2024 4:50 PM AGRICULTURE LABORATORY TECHNICIAN Impressions 2024 6:35 PM AGRICULTURE LABORATORY TECHNICIAN LEFT VENTRICLE:Normal left ventricular chamber size. [...] the Order-Level Documents. Narrative 2024 6:35 PM AGRICULTURE LABORATORY TECHNICIAN For the complete report, see the [...]
--- OUTSIDE RECORDS SUMMARY | 2024-09-26 08:33 | XMS_ITS | Encounter Summary ---
Author Organization [facility] Address [address] [place] [address] Care Team Providers Care Caster Helper Name Role Phone Unavailable Primary Care Provider Unavailabl e Reason for Referral * Outpatient (Routine) - Authorized Specialty Diagnoses / Procedures Referred By Contac t Referred To Contact Diagnoses Dizziness Palpitations Shortness Of Breath Procedures ECG Heart rhythm monitor (Holter) aCl Ren MPAS, P.A.-C., M.S. [address] [place] [phone] Phone: tel: fax: [facility] Referral ID Status Reason Start Date Expiration Date V isits Requested Visits Authorized [id number] Authorized 08/22/2024 11/22/2025 1 1 ENT LIAISON OFFICER Reason for Visit * Outpatient (Routine) - Authorized Specialty Diagnoses / Procedures Referred By Contac t Referred To Contact Diagnoses Dizziness Palpitations Shortness Of Breath Procedures ECG Heart rhythm monitor (Holter) Cal Ren MPAS, P.A.-C., M.S. [address] [place] [phone] Phone: tel: fax: [facility] Referral ID Status Reason Start Date Expiration Date V isits Requested Visits Authorized [id number] Authorized 08/22/2024 11/22/2025 1 1 Encounter Details Date Type Department Care Team (Latest Contact Info) Description 2024 12:28 PM STUDENT LIAISON OFFICER - 2024 3:32 PM STUDENT LIAISON OFFICER Hospital Encounter Department of Cardiovascular Diseases in [place], [place] [address] [place] [address] Cal Ren MPAS, P.A.-C., M.S. [address] [place] [address] Dizziness; Palpitations; Shortness Of Breath Discharge Disposition: [...] AM CDT Legal Sex Male 9:28 AM STUDENT LIAISON OFFICER Gender Identity Male 12/30/2022 7:11 AM CDT [...] tablet Take by mouth daily. 05/17/2009 omega 0-ekf-hqe-fish oil (FISH OIL) 1,000 mg (120 mg-180 [...] Diagnosis Comments HOLTER MONITOR - IN CLINIC PROPERTY MANAGEMENT ACCOUNTANT Routine 08/30/2024 10:03 AM STUDENT LIAISON OFFICER Dizziness Palpitations Shortness Of Breath documented in this encounter Results * HOLTER MONITOR - IN CLINIC PROPERTY MANAGEMENT ACCOUNTANT (08/30/2024 10:03 AM STUDENT LIAISON OFFICER) Min Heart Rate 54 bpm INFOB IONIC [...] Duration 0 duration INFOBION IC MOME AF [place] 0 percent INFOBIONIC MOME Symptom Count 0 count INFOBI ONIC MOME 2024 12:3 3 PM STUDENT LIAISON OFFICER Narrative INFOBIONIC MOME - 08/31/2024 2:10 PM STUDENT LIAISON OFFICER 1. The basic rhythm was sinus with [...] no events noted with which to correlate. Warehouse Freight Handler: NILTON Aguilar/ NILTON Capellan Procedure Note Jarvis [...] with no events noted with which tocorrelate. Warehouse Freight Handler: NILTON Aguilar/ INLTON Capellan Cal ARITA PTyshawn.-C., M.S. CV CARDIAC S ERVICES PROCEDURES Final Result INFOBIONIC MONI NA documented in this encounter Visit Diagnoses Diagnosis Dizziness Palpitations Shortness Of Breath documented in this encounter
[2024-09-26 08:42] LABS: Lactate* 0.7 mmol/L (0.5-1.9)
[2024-09-26 08:44] LABS: Basophils Absolute Auto 0.03 K/uL (0.00-0.30); Basophils Percent Auto 0.5 % (0.0-3.0); Eosinophils Absolute Auto 0.13 K/uL (0.00-0.50); Hematocrit 43.8 % (37.0-53.0); Hemoglobin* 14.5 gm/dL (13.5-17.5); Immature Granulocytes Abs Auto 0.01 K/uL (0.00-0.30); Immature Granulocytes Pct Auto 0.2 %; Lymphocytes Absolute Auto 1.45 K/uL (0.90-2.90); Lymphocytes Percent Auto 22.4 % (20-44); Mean Corpuscular HGB Conc 33 gm/dL (32-36); Mean Corpuscular Hemoglobin 29 pg (26-34); Mean Corpuscular Volume 87 fL (80-100); Monocytes Percent Auto 9.7 % (0.0-11.0); Neutrophils Absolute Auto 4.22 K/uL (1.7-7.0); Neutrophils Percent Auto 65.2 % (42.0-72.0); Platelet Count* 276 K/uL (140-440); RDW Coefficient of Variation % 12.8 % (11.5-15.5); Red Blood Count 5.01 m/uL (4.30-5.90); White Blood Count* 6.47 K/uL (4.50-11.00)
[2024-09-26 08:47] LABS: Slide Review Reflex No
[2024-09-26 08:51] LABS: Appearance Urine Clear (Clear); Bilirubin Urine Negative (Negative); Blood Urine Trace-intact (Negative); Color Urine Yellow (Yellow); Glucose Urine Negative (Negative); Ketones Urine Negative (Negative); Leukocyte Esterase Urine Negative (Negative); Nitrite Urine Negative (Negative); Protein Urine Negative (Negative); Specific Gravity Urine <= 1.005 (1.000-1.030); Urobilinogen Urine 0.2 (0.2-1.0)
[2024-09-26 09:00] LABS: Chloride* 101 mmol/L (96-114)
[2024-09-26 09:01] LABS: Potassium* 4.3 mmol/L (3.6-5.1); Sodium* 136 mmol/L (135-149)
[2024-09-26 09:03] LABS: WBC Urine 0-2 (0-5)
[2024-09-26 09:03] LABS: Blood Urea Nitrogen* 19 mg/dL (7-30); Creatinine* 1.3 mg/dL (0.5-1.5); Estimated Glomerular Filt Rate 61 ml/min
[2024-09-26 09:04] LABS: Anion Gap 5 mEq/L (7-15); Carbon Dioxide* 30 mmol/L (20-32); Glucose* 124 mg/dL (60-115)
[2024-09-26 13:27] VITALS: BP 128/86; PULSE 63; RESP 16; O2SAT 97
== END 2024-09-26 13:46 | disposition home or self-care (01) ==
PROVIDERS: Emergency Provider Emergency Medicine; PCP Surgery
DX: N45.1 Epididymitis (principal); R31.9 Hematuria, unspecified
CPT/HCPCS: 36415; 74176; 76870; 80048; 81001; 83605; 85025; 93976; 99283; 99284